=== PATIENT | female | born 1955 | race Caucasian/White ===

== ENCOUNTER → 2017-09-17 08:57 | Outpatient (CLI) | payer OTHER, MEDICAID, SELFPAY ==
--- NOTE | 2017-09-18 11:53 | PFT_ITS ---
INTRODUCTION: The patient is a 62-year-old female currently under the care of Dr. Bal that presents for pulmonary function testing secondary to a diagnosis of high risk medication use. Respiratory therapy reports that the patient was unable to complete plethysmography as the patient's wheelchair could not fit into the body box. Therefore, nitrogen washout was performed. INTERPRETATION: Forced expiration spirometry demonstrates no evidence of a large airways obstructive ventilatory defect. There was a near significant response to aerosolized bronchodilators. Spirograms are of fair quality and plateau normally. Lung volumes were measured by determining the functional residual capacity in determining the lung divisions by a vital capacity maneuver ( Nitrogen Washout). It should be noted that lung volumes may be underestimated by this technique in the setting of an obstructive ventilatory defect. TLC was decreased to 2.12 L, 48% of predicted, indicative of a severe restrictive ventilatory defect. The remainder of the lung volumes are symmetrically reduced. Diffusing capacity by single breath CO is severely reduced at 20% of predicted. When compared to previous pulmonary function studies dated November 2014, there have been symmetric reductions in the patient's FEV1 and FVC. TLC and DLCO have both significantly decreased. IMPRESSION: These pulmonary function studies demonstrate the presence of a severe restrictive ventilatory defect with a symmetric reduction in diffusing capacity. There have been significant changes in the patient's PFTs since they were last completed in November 2014. Would recommend obtaining dedicated chest imaging to evaluate for the presence of an interstitial lung disease.
== END ==
PROVIDERS: Family Provider Family Medicine; PCP Family Medicine; Visit Provider Internal Medicine Cardiovascular Disease
DX: Z79.899 Other long term (current) drug therapy (principal)
CPT/HCPCS: 94060; 94726; 94727; 94729

== ENCOUNTER 2018-08-02 16:47 | Inpatient (IN) | payer MEDICARE, MEDICAID, SELFPAY ==
[2018-03-09 14:02] VITALS: BMI 58.3
[2018-08-02] VITALS (10 sets, daily range): BP systolic 80–119; BP diastolic 51–87; PULSE 47–114; RESP 16–27; TEMP 36.2–36.9; O2SAT 94–98; BMI 62.6; BMI 61.4; BMI 61.5
--- NOTE | 2018-08-02 16:52 | ED.DCSUM_ITS ---
- ER Visit Summary Date of Service: 08/02/18 Chief Complaint: Bilateral hip wound History of Present Illness: The patient is a 63 F with history of morbid obesity, end-stage renal disease on dialysis, atrial fibrillation, and coronary vascular disease presents to the emergency department with bilateral hip wounds. The patient is wheelchair-bound. She states over the past 2-3 weeks, she is had some increasing skin breakdown in both hips. She states over the past few days, her pain is gotten much worse on especially on the left. She denies any fevers or chills. The patient does have a history of prior significant wound infection that has required debridement. They have tried some local skin latrell ures, but the ones worsened. She denies any trauma. She denies any falls. Physical Examination: Vital signs reviewed General: Well-nourished, well-developed Head: Normocephalic, atraumatic Eyes: Pupils equal and reactive, extraocular muscles intact Neck, supple, no lymphadenopathy Heart: Regular rate and rhythm Respiratory: No distress, clear bilaterally Abdomen: Soft, nontender, nondistended, no peritoneal signs Back: Nontender Extremities: Decubitus ulcerations over bilateral hips. There is skin breakdown, erythema, and cellulitis bilaterally, left greater than right. Skin: Normal color no rash Neuro: Alert and oriented, no focal or lateralizing deficits Test Results: [] Emergency Department Course and Treatment: The patient does have cellulitis bilaterally left greater than right. Screening labs are obtained. She has no evidence of sepsis. The patient does have chronic kidney disease and is on dialysis. My concern is that being wheelchair-bound and with her morbid obesity, her wounds are only going to worsen. The patient was started on broad- spectrum antibiotics. She was discussed with the hospitalist and will be admitted for monitoring of her cellulitis and local wound care. Treatment Plan: [] Disposition: Admission Impression: 1. Bilateral lower extremity cellulitis This note was generated with [employer] dictation software. It may contain incorrect words, spelling, and punctuation that were not noted in review of the chart prior to signing ED Disposition - Plan for ED Patient: Chief Complaint: Wound
[2018-08-02] MEDS: Morphine 2 MG/ML Syringe IV (17:21)
[2018-08-02 17:22] LABS: Basophil# 0.01 X10^3/uL; Basophil% 0.1 % (0-1); Eosinophils% 1.2 % (0-5); Hematocrit 37.2 % (37-47); Hemoglobin 10.9 g/dl (12.0-15.0); Lymphocyte % 12.4 % (19-41); Mean Corp Hgb Conc 29.3 g/gl (32-36); Mean Corpuscular Hgb 29.6 pg (27.0-32.0); Mean Corpuscular Volume 101.1 fL (81-99); Mean Platelet Vol. 9.6 fl (6.2-12.0); Monocyte# 0.95 X10^3/uL; Monocyte% 11.8 % (0-10); Neutrophil # 5.99 X10^3/uL (2.7-7.7); Neutrophil % 74.1 % (47-70); Platelet Count 199 K/mm3 (150-450); RBC Distribution Width CV 15.6 % (11.6-14.6); RBC Distribution Width SD 57.7 fl (35.1-43.9); Red Blood Count 3.68 M/mm3 (4.2-5.4); White Blood Count 8.1 K/mm3 (4.4-11.0)
[2018-08-02 17:31] LABS: POSITIVE COUNT NO; POSITIVE DIFFERENTIAL NO; POSITIVE MORPHOLOGY NO
[2018-08-02 17:37] LABS: ALB/GLOB Ratio 0.6 RATIO (0.9-2.4); AST(SGOT) 14 U/L (15-37); Alanine Aminotransfer ALT/SGPT 16 U/L (13-56); Albumin, Serum 2.6 g/dL (3.2-5.0); Alkaline Phosphatase 133 U/L (45-117); Anion Gap 13 (5-15); BUN 32 mg/dL (7-18); BUN/Creat Ratio 9.6 RATIO (10-20); Calcium,Total 10.2 mg/dL (8.5-10.1); Chloride 91 mmol/L (98-107); Creatinine, Serum 3.34 mg/dL (0.55-1.02); EST Glomerular Filtration Rate 15 mL/min (>60); Est Glom Filt Rate - Afr Amer 18 mL/min (>60); Estimated Creatinine Clearance 13.28 ml/min; Globulin 4.4 g/dL (2.2-4.2); Glucose 125 mg/dL (74-106); Potassium 3.6 mmol/L (3.5-5.1); Sodium Level 136 mmol/L (136-145)
[2018-08-02 17:38] LABS: International Normalized Ratio 1.2; Prothrombin Time (Protime)PT. 15.3 SECONDS (11.7-14.9)
[2018-08-02 17:42] LABS: Lactic Acid 1.5 mmol/L (0.4-2.0)
--- NOTE | 2018-08-02 18:18 | PCM.HP.STD ---
Problem List (1) Cellulitis of left hip Status: Acute (2) Morbid obesity Status: Chronic (3) Chronic obstructive pulmonary disease (COPD) Status: Chronic Qualifiers: Emphysema type: unspecified (4) GRAEME (obstructive sleep apnea) Status: Chronic (5) Chronic anemia Status: Chronic (6) Diabetes mellitus, type II Status: Chronic Qualifiers: Diabetes mellitus intermodal customer service insulin use: with intermodal customer service use Diabetes mellitus complication status: with unspecified complications Qualified Code(s): E11.8 - Type 2 diabetes mellitus with unspecified complications; Z79.4 - termite treater (current) use of insulin (7) Paroxysmal atrial fibrillation Status: Chronic (8) Cardiac pacemaker in situ Status: Chronic (9) Hypertension Status: Chronic Qualifiers: Hypertension type: essential hypertension Qualified Code(s): I10 - Essential (primary) hypertension (10) Tachycardia-bradycardia syndrome Status: Chronic (11) History of depression Status: Chronic (12) HLD (hyperlipidemia) Status: Chronic Qualifiers: Hyperlipidemia type: unspecified Qualified Code(s): E78.5 - Hyperlipidemia, unspecified (13) Pulmonary HTN Status: Chronic (14) ESRD (end stage renal disease) on dialysis Status: Chronic History of Present Illness Date of Admission: 08/02/18 Chief Complaint: L hip skin breakdown, redness, pain. The patient is a 63 y/o F w/ PMHx: Morbid Obesity, AOCD, ESRD on HD (HD M/W/F, last Thursday) following w/ Dr. Limon, Chronic wheelchair and bedbound, CAD, Chronic AF, HTN, HLD, Diabetes mellitus type II, GRAEME non-compliant with CPAP/BIPAP, Chronic COPD, Chronic Pain Syndrome who presents to the [facility] ED on 08/02/18 with history of progressively worsening skin breakdown to bilateral hips over the last 2-3 weeks, recently onset left side redness, erythema, edema, and pain over the last several days with subjective fever. She denies any specific changes and notes that she has been using the same wheelchair and denies any increased weight gain or body habitus changes. In the ED workup includes T 98.5, heart rate 94, BP 94/81 although this is on her upper extremity and suspect poor quality, respiratory rate 16, 97% on room air, CBC with WBC 8.1, hgb 10.9, platelet 199, INR 1.2, CMP with BUN/creatinine 32/3.34, glucose 125, lactic acid 1.5. In the ED patient administered morphine, fentanyl, Rocephin, vancomycin. Past Medical History Past Medical History (Chronic Problems): Chronic Problems (Last Reviewed 09/09/17 @ 15:25 by Padmini Micthell) Morbid obesity (Chronic) Chronic obstructive pulmonary disease (COPD) (Chronic) GRAEME (obstructive sleep apnea) (Chronic) Chronic anemia (Chronic) Diabetes mellitus, type II (Chronic) Paroxysmal atrial fibrillation (Chronic) Cardiac pacemaker in situ (Chronic ~02/23/14) Shortness of breath (Chronic) Hypertension (Chronic) Edema (Chronic) Carotid bruit (Chronic) Tachycardia-bradycardia syndrome (Chronic) History of depression (Chronic) HLD (hyperlipidemia) (Chronic) Biatrial enlargement (Chronic) Pulmonary HTN (Chronic) ESRD (end stage renal disease) on dialysis (Chronic) Contusion of right lower leg (Chronic) Resulting in a nonhealing wound Right lower leg eschar (Chronic) Decubitus ulcer of ankle, stage 2 (Chronic) Hyperkalemia (Chronic) Medical History: Medical History (Last Reviewed 09/09/17 @ 15:25 by Padmini Mitchell) Cardiac pacemaker in situ (Chronic) Onset Date: ~02/23/14 Z95.0 Shortness of breath (Chronic) R06.02 Hypertension (Chronic) I10 Edema (Chronic) R60.9 Carotid bruit (Chronic) R09.89 Tachycardia-bradycardia syndrome (Chronic) I49.5 History of depression (Chronic) Z86.59 HLD (hyperlipidemia) (Chronic) E78.5 Biatrial enlargement (Chronic) I51.7 Pulmonary HTN (Chronic) I27.2 ESRD (end stage renal disease) on dialysis (Chronic) N18.6, Z99.2 Contusion of right lower leg (Chronic) S80.11XA Resulting in a nonhealing wound Fall (on) (from) other stairs and steps, initial encounter (Acute) W10.8XXA Right lower leg eschar (Chronic) Clostridium difficile enterocolitis (Acute) A04.7 Recent, still on oral Vancocin Decubitus ulcer of ankle, stage 2 (Chronic) L89.502 C. difficile colitis (Acute) infected ischial tuberosity ulcer (Acute) infected ischial tuberosity ulcer (Acute) C. difficile colitis (Acute) Hyperkalemia (Chronic) E87.5 Asthma J45.909 CKD (chronic kidney disease) N18.9 COPD (chronic obstructive pulmonary disease) J44.9 Family history of hypertension Z82.49 Family history of sudden cardiac Z82.41 Paroxysmal atrial fibrillation I48.0 Respiratory failure, chronic J96.10 Type 2 diabetes mellitus E11.9 GRAEME (obstructive sleep apnea) G47.33 Acute on chronic respiratory failure with hypoxia and hypercapnia (Inactive) J96.21, J96.22 Benign essential hypertension (Inactive) I10 COPD (chronic obstructive pulmonary disease) (Inactive) J44.9 FH: sudden cardiac (SCD) (Inactive) Z82.41 Family history of hypertension (Inactive) Z82.49 History of chronic respiratory failure (Inactive) Z87.09 On 3 L nasal O2 group home use of drug (Inactive) Z79.899 Obstructive sleep apnea (Inactive) G47.33 PAF (paroxysmal atrial fibrillation) (Inactive) I48.0 with RVR Pacemaker (Inactive) Z95.0 DCCV 04/2015 Postoperative hypotension (Inactive) I95.89 Super obesity (Inactive) E66.9 Type II diabetes mellitus (Inactive) E11.9 Allergies rosuvastatin calcium [From Crestor] Allergy (Verified 08/02/18 16:51) Unknown Patient stated that she does not remember, it has been so long ago. Penicillins Adverse Reaction (Verified 08/02/18 16:51) Unknown GETS YEAST INFECTION prednisone Adverse Reaction (Verified 08/02/18 16:51) Other SENDS BLOOD SUGARS HIGH simvastatin Adverse Reaction (Verified 08/02/18 16:51) Unknown FEELS FUNNY Home Medications: Ambulatory Orders Medication Instructions Recorded Acetaminophen 650 mg RC Q4H PRN 02/14/17 Acetaminophen [Tylenol] 650 mg PO Q6H PRN 02/14/17 Albuterol Aerosols [Ventolin 2.5 mg INHALATION Q4H PRN PRN 02/14/17 Aerosols] Amiodarone HCl [Cordarone] 200 mg PO DAILY 02/14/17 Aspirin [Aspirin, Baby] 81 mg PO DAILY@0800 02/14/17 Benzonatate [Tessalon Perle] 100 mg PO PRN PRN 02/14/17 Bisacodyl [Dulcolax] 10 mg RECTAL PRN PRN 02/14/17 Calcium Acetate 667 mg PO TID 02/14/17 Dextrose [Glucose Gel] 38 gm PO PRN PRN 02/14/17 Ergocalciferol [Vitamin D] 50,000 unit PO Q7D 02/14/17 Glucagon,Human Recombinant 1 mg IJ PRN PRN 02/14/17 [Glucagon Emergency Kit] Guaifenesin [Robitussin] 10 ml PO Q4H PRN PRN 02/14/17 Insulin Detemir [Levemir (BKC)] 12 units SC QHS 02/14/17 Insulin Lispro [Humalog] 4 unit SQ TIDCM 02/14/17 Magnesium Hydroxide [Milk Of 30 ml PO DAILY PRN PRN 02/14/17 Magnesia] Meloxicam [Mobic] 7.5 mg PO DAILY 02/14/17 Metoprolol Tartrate [Lopressor 12.5 mg PO BID 02/14/17 (Beta Ariadna)] Montelukast [Singulair] 10 mg PO QHS 02/14/17 Na Phos,M-B/Na Phos,Di-Ba [Fleet 1 bottle RECTAL PRN PRN 02/14/17 Enema] Nystatin Powder [Mycostatin Powder] 1 applic TOPICAL DAILY 02/14/17 Pramipexole Di-HCl [Mirapex] 0.5 mg PO QHS 02/14/17 Sertraline HCl [Zoloft] 50 mg PO DAILY 02/14/17 midodrine 5 mg tablet 5 mg PO TID tab 09/09/17 omeprazole 20 mg tablet,delayed 20 mg PO QDAY tab 09/09/17 release Fluticasone 110 Mcg [Flovent (SP)] 1 puff INHALATION BID 08/02/18 Guaifenesin [Guaifenesin ER] 1,200 mg PO BID PRN PRN 08/02/18 Guaifenesin/Codeine [Robitussin AC] 10 ml PO Q6H PRN PRN 08/02/18 Insulin Lispro [Humalog] See Protocol SQ ACHS 08/02/18 Lactobacillus Rhamnosus GG 1 mg PO DAILY 08/02/18 [Culturelle] Levothyroxine [Synthroid] 25 mcg PO DAILY 08/02/18 Mag Hydrox/Aluminum Hyd/Simeth 30 ml PO Q4H PRN PRN 08/02/18 [Antacid Suspension] Nystatin [Mycostatin] 1 applic TOPICAL BID 08/02/18 Polyethylene Glycol 3350 [Miralax] 17 gm PO QHS 08/02/18 Pramipexole Di-HCl [Mirapex] 1 mg PO QHS 08/02/18 Silver Sulfadiazine 1% Crm 1 applic TOPICAL PRN PRN 08/02/18 [Silvadene (BKC)] traMADol [Ultram (G)] 50 mg PO Q8H PRN PRN 08/02/18 traMADol [Ultram (G)] 50 mg PO QHS PRN PRN 08/02/18 Surgical History: Surgical History (Last Reviewed 09/09/17 @ 15:25 by Padmini Mitchell) H/O skin graft (Acute) Z98.890 07/[address] Archie Fung to the nonhealing wound of the right lower extremity Surgical History: cataract, cholecystectomy, tonsillectomy, - - Placement of fistula and left upper arm placement of pacemaker, carpal tunnel surgery Psychiatric History: Anxiety, Depression HUMAN RESOURCES ASSISTANT MANAGER History: No pertinent HUMAN RESOURCES ASSISTANT MANAGER history Lives: Care Home Smoking Status: Former smoker Tobacco Use: Non-smoker Alcohol: None Drugs: None - *Family History Maternal Family History: Family History (Last Reviewed 09/09/17 @ 15:25 by Padmini Mitchell) Mother Diabetes Hypertension Grandmother Myocardial infarction Grandfather Hypertension Father Hypertension History Items: Diabetes, Hypertension Paternal Family History: Family History (Last Reviewed 09/09/17 @ 15:25 by Padmini Mitchell) Mother Diabetes Hypertension Grandmother Myocardial infarction Grandfather Hypertension Father Hypertension History Items: Hypertension Sibling Family History: Family History (Last Reviewed 09/09/17 @ 15:25 by Padmini Mitchell) Mother Diabetes Hypertension Grandmother Myocardial infarction Grandfather Hypertension Father Hypertension History Items: No pertinent history Review of Systems Constitutional: Reports: Fever, Malaise, Weakness, Fatigue. Denies: Chills, Weight Change HEENT: Denies: Head Aches, Sinus Congestion, Sinus Drainage Cardiovascular: Reports: Edema. Denies: Chest Pain, Palpitations Respiratory: Denies: Cough, Shortness of breath at rest, Sputum production Gastrointestinal: Denies: Abdominal Pain, Nausea, Vomiting Genitourinary: Denies: Dysuria Musculoskeletal: Reports: Back Pain, Joint Pain, Leg Pain. Denies: Joint Tenderness Skin: Reports: Skin Changes, Wounds. Denies: Rash Neurological: Denies: Numbness, Tingling, Focal weakness Psychiatric: Reports: Anxiety, Depression. Denies: Homicidal Ideations, Suicidal Ideations Hematologic/ Lymphatic: Reports: Anemia. Denies: Easy Bruising, Easy Bleeding VTE Information - Inpt Only VTE Present on Admission: No VTE Mechan Device Prophylaxis: SCD's VTE Pharm Prophylaxis ordered?: Yes Patient Problems: Active and Suspected Problems (Last Reviewed 09/09/17 @ 15:25 by Padmini Mitchell) Cellulitis of left hip (Acute) Subjective: Seated upright in the ED bed, denies any current complaints, recent pain regimen with improvement of discomfort to the left hip. Objective: Physical Examination: General: awake, alert, oriented x 3 and cooperative, seated upright in bed in no apparent distress. Skin: normal color, turgor, no icterus, cyanosis except noted intertrigo in addition to mild erythema primarily to the left hip, very minimal to the right with stage I skin breakdown. HEENT: AT/NC, EOMI, PERRLA, mildly dry MM, no carotid bruits or JVD noted; however habitus makes examination difficult. Lungs: Diminished breath sounds bilaterally, greater bilateral bases, distant secondary to habitus, no rales, ronchi or wheezing. Heart: Irregular; no gallop, rub audible. Abdomen: soft, obese, NTTP, ND, normal BS, unable to discern HSM secondary to habitus. Extremities: no cyanosis, clubbing, BL LE chronic venous skin changes, edema. Neurological: patient awake, alert, oriented x 3; cognitive function intact; pupils equally reactive to light and accomodation; cranial nerves II-XII grossly normal, moving all 4 extremities although limited, wheelchair and bedbound chronically, strength severely globally decreased. Psychiatric: affect appears normal, no acute evidence of depressive or anxiety feelings. - Physical Exam Vital Signs Temp Pulse Resp BP Pulse Ox 98.2 F 103 H 18 81/56 L 98 08/02/18 17:24 08/02/18 17:24 08/02/18 17:24 08/02/18 17:24 08/02/18 17:24 Oxygen Delivery Method Room Air Weight: 342 lb 9.573 oz Body Mass Index (BMI) 62.6 Finger Stick Blood Glucose 206 Laboratory Tests Past 24 Hrs 08/02/18 08/02/18 08/02/18 17:00 17:00 17:00 WBC 8.1 RBC 3.68 L Hgb 10.9 L Hct 37.2 MCV 101.1 H MCH 29.6 MCHC 29.3 L RDW 15.6 H RDW Differential 57.7 H Plt Count 199 MPV 9.6 Immature Gran % (Auto) 0.400 Neut % (Auto) 74.1 H Lymph % (Auto) 12.4 L [place] % (Auto) 11.8 H Eos % (Auto) 1.2 Baso % (Auto) 0.1 Absolute Neuts (auto) 6.0 Absolute Lymphs (auto) 1.00 Total Counted Not Reportable PT 15.3 H INR 1.2 Sodium 136 Potassium 3.6 Chloride 91 L Carbon Dioxide 32.0 Anion Gap 13 BUN 32 H Creatinine 3.34 H Estim Creat Clear Calc 13.28 Est GFR (MDRD) Af Amer 18 L Est GFR (MDRD) Non-Af 15 L BUN/Creatinine Ratio 9.6 L Glucose 125 H Lactic Acid Calcium 10.2 H Total Bilirubin 0.40 AST 14 L ALT 16 Alkaline Phosphatase 133 H Total Protein 7.0 Albumin 2.6 L Globulin 4.4 H Albumin/Globulin Ratio 0.6 L 08/02/18 17:00 WBC RBC Hgb Hct MCV MCH MCHC RDW RDW Differential Plt Count MPV Immature Gran % (Auto) Neut % (Auto) Lymph % (Auto) [place] % (Auto) Eos % (Auto) Baso % (Auto) Absolute Neuts (auto) Absolute Lymphs (auto) Total Counted PT INR Sodium Potassium Chloride Carbon Dioxide Anion Gap BUN Creatinine Estim Creat Clear Calc Est GFR (MDRD) Af Amer Est GFR (MDRD) Non-Af BUN/Creatinine Ratio Glucose Lactic Acid 1.5 Calcium Total Bilirubin AST ALT Alkaline Phosphatase Total Protein Albumin Globulin Albumin/Globulin Ratio Assessment/Plan All Active Problems (Last Reviewed 09/09/17 @ 15:25 by Padmini Mitchell) Cellulitis of left hip (Acute) Fall (on) (from) other stairs and steps, initial encounter (Acute) Clostridium difficile enterocolitis (Acute) H/O skin graft (Acute) C. difficile colitis (Acute) infected ischial tuberosity ulcer (Acute) infected ischial tuberosity ulcer (Acute) C. difficile colitis (Acute) MRSA (methicillin resistant Staphylococcus aureus) infection (Resolved) Pseudomonas aeruginosa infection (Resolved) The patient is a 63 y/o F w/ PMHx: Morbid Obesity, AOCD, ESRD on HD (HD M/W/F, last Thursday) following w/ Dr. Limon, Chronic wheelchair and bedbound, CAD, Chronic AF, HTN, HLD, Diabetes mellitus type II, GRAEME non-compliant with CPAP/BIPAP, Chronic COPD, Chronic Pain Syndrome who presents to the [facility] ED on 08/02/18 with history of progressively worsening skin breakdown to bilateral hips over the last 2-3 weeks, recently onset left side redness, erythema, edema, and pain over the last several days with subjective fever. (1) BL Hip, L>R Cellulitis: Will admit to [facility], maintain on IV vanc given MRSA history noted, plan repeat CBC in AM, continue affected extremity elevation above heart when seated and in bed, monitor erythema outline with VS checks. Wound RN consultation, position changes, offloading. (2) Diabetes mellitus type II: Hold oral home regimen, continue home insulin regimen, ADA diet, accu checks w/ ISS. (3) End-stage renal disease: Patient with normal HD regimen Thursday, Thursday, Thursday although given holiday patient underwent Thursday regimen per her report, consult Dr. Limon. Continue Midrin regimen. (4) Chronic Atrial Fibrillation: Continue home aspirin, amiodarone, metoprolol regimen. Not anticoagulated, unclear reason, possibly fall risk. (5) Hypertension: Continue home regimen including metoprolol, PRN hydralazine. (6) Hyperlipidemia: Statin allergy noted. (7) CAD: Continue home asa, BB, not on statin w/ allergy noted. (8) Morbid Obesity: Weight loss and lifestyle changes encouraged, nutrition consulted. (9) GRAEME: Noncompliant with sleep apnea CPAP/BIPAP regimen. (10) Hypothyroidism: Continue home synthroid regimen. (11) Chronic COPD: ATC duonebs, PRN albuterol, HOB, IS parameters. (12) Intertrigo: Continue nystatin powder application. (13) GERD: PPI. (14) DVT prophylaxis: SCDs, heparin. (15) CODE status: Discussed CODE status at length including difference between FULL code, DNR-CCA and DNR-CC status. Following discussions about the differences in these status, requested DNR-CCA, no intubation status. DNR-CCA, no intubation form signed and placed on the chart. Advanced Care Planning Face to Face Time: 17 minutes. Code Visit Inpatient E&M: 54282 Init Hosp L3 Procedures: 42144 Advncd Care Plan 30 Min
[2018-08-02] MEDS: Ceftriaxone 1 GM/50 ML BAG IV (18:36)
[2018-08-02] MEDS: Vancomycin IV 1,000 MG/200 ML BAG 200 MG IV (19:35)
[2018-08-02] MEDS: fentaNYL 100 MCG/2 ML Ampul 50 MCG IV (19:42)
--- NOTE | 2018-08-02 21:16 | ED.RN ---
MONE RN PATROL JUDGE CALLED ABOUT PATIENT'S LOWER BP. PATIENT STATES IT IS ALWAYS RUNS LOWER. I PUT A SMALL BP CUFF ON HER RIGHT FOREARM, ( WE ARE UNABLE TO USE RIGHT UPPER ARM OR LEFT ARM D/T DIALYSIS FISTULA.) I WAS ABLE TO GET A BETTER READING OF 91/67 AND THEY WERE OK WITH THIS PRIOR TO SENDING HER TO THE FLOOR. PATIENT HAS HAD THESE LOWER BP'S SINCE SHE CAME HERE AND DOCTOR MADE AWARE.
[2018-08-02 22:23] LABS: Magnesium 2.4 mg/dL (1.6-2.6)
[2018-08-02 22:39] LABS: Hemoglobin A1c 7.1 % (4.2-6.3)
[2018-08-02] MEDS: Ipratropium/Albuterol Sulfate 3 ML AMPUL.NEB INHALATION (23:09)
[2018-08-02] MEDS: Heparin Injection (Vial) 5,000 UNIT/ML VIAL 5000 UNIT SC (23:20)
[2018-08-02] MEDS: Metoprolol Tartrate 25 MG Tablet 12.5 MG PO (23:21)
[2018-08-02] MEDS: Pramipexole Di-HCl 1 MG Tablet PO (23:21)
[2018-08-02] MEDS: Midodrine HCl 5 MG Tablet PO (23:21)
[2018-08-02] MEDS: Nystatin Powder 15gm Bottle 1 APPLIC TOPICAL (23:22)
[2018-08-02] MEDS: Montelukast 10 MG Tablet PO (23:26)
[2018-08-02] MEDS: Insulin Lispro 100 UNIT/ML INSULN.PEN SC (23:26)
[2018-08-02 23:45] LABS: Bedside Glucose 277 mg/dL (70-110)
[2018-08-02] MEDS: oxyCODONE 5 MG Tablet PO (23:48)
[2018-08-03] VITALS (13 sets, daily range): BP systolic 75–130; BP diastolic 52–90; PULSE 70–135; RESP 18–20; TEMP 36.6–37.5; O2SAT 95–99
--- NOTE | 2018-08-03 | PCM.RX.CS ---
Consult Pharmacy has been consulted to manage selected antiobiotic: Vancomycin Type of Consult: New start Suspected Infection: Skin/Soft tissue Prior Doses of Antibiotics Received/Current Regimen: Medications Discontinued Medications Vancomycin HCl (Vancomycin) 1,000 mg in 200 mls @ 200 mls/hr IV X1 ONE Stop: 08/02/18 19:59 Last Admin: 08/02/18 19:35 Dose: 200 mls/hr Labs: Sodium 136 mmol/L (136-145) 08/02/18 17:00 Potassium 3.6 mmol/L (3.5-5.1) 08/02/18 17:00 Chloride 91 mmol/L (98-107) L 08/02/18 17:00 Carbon Dioxide 32.0 mmol/L (21.0-32.0) 08/02/18 17:00 Anion Gap 13 (5-15) 08/02/18 17:00 BUN 32 mg/dL (7-18) H 08/02/18 17:00 Creatinine 3.34 mg/dL (0.55-1.02) H 08/02/18 17:00 Est GFR (MDRD) Af Amer 18 mL/min (>60) L 08/02/18 17:00 Est GFR (MDRD) Non-Af 15 mL/min (>60) L 08/02/18 17:00 BUN/Creatinine Ratio 9.6 RATIO (10-20) L 08/02/18 17:00 Glucose 125 mg/dL (74-106) H 08/02/18 17:00 Weight used for dosin.4 kg Estimated Creatinine Clearance: 13.3 Goal Trough: 10-15 mcg/mL Pharmacy Plan for Drug Dosing: Due to CrCl<20 a random vancomycin level will be drawn and further dosing calculated from the results. Pharmacy Service will continue to monitor and adjust dosing as required. Follow-Up Labs: Trough Vancomycin - random Labs to be done on [date and time ordered]: 08/04/18 @0600
[2018-08-03] MEDS: Levothyroxine 25 MCG TABLET PO (05:55)
[2018-08-03] MEDS: Heparin Injection (Vial) 5,000 UNIT/ML VIAL 5000 UNIT SC ×3 (05:57→21:10)
[2018-08-03] MEDS: Midodrine HCl 5 MG Tablet PO ×3 (05:57→21:12)
[2018-08-03] MEDS: Nystatin Powder 15gm Bottle 1 APPLIC TOPICAL ×3 (05:57→21:11)
[2018-08-03] MEDS: Ipratropium/Albuterol Sulfate 3 ML AMPUL.NEB INHALATION ×2 (07:05→12:58)
--- NOTE | 2018-08-03 08:02 | PCM.PROGNOTE ---
Patient Problems: Active and Suspected Problems (Last Reviewed 09/09/17 @ 15:25 by Padmini Mitchell) Cellulitis of left hip (Acute) Subjective: The patient is a 63-year-old female with a past medical history of super morbid obesity, COPD, obstructive sleep apnea, chronic anemia, diabetes mellitus type 2, PAF, pacemaker implantation, hypertension, tachybradycardia syndrome, depression, hyperlipidemia, pulmonary hypertension and end-stage renal disease on hemodialysis who presented to the emergency department at [facility] on 08/02/2018 complaining of worsening skin breakdown to the bilateral hips over the previous 2-3 weeks. She had a subjective fever and denied chills. She is chronically wheelchair and bedbound. Over the past 18 months she has gained 41 pounds. Vital signs at presentation to the emergency room were temp 98.2, heart rate 47, blood pressure 93/57, respiratory rate 16 and she was 97% saturated on room air. Significant lab included a white blood cell count of 8.1 with 74% neutrophils. Hemoglobin is 10.9 which is her baseline. Platelets are within normal limits. Electrolytes were within normal limits and the BUN was 32 with a creatinine of 3.34. Hemoglobin A1c is 7.1 and lactic acid was 1.5. Calcium was elevated at 10.2. She was administered morphine, fentanyl, Rocephin and vancomycin in the emergency department. On physical examination she had intertrigo, mild erythema primarily to the left hip and very minimal to the right with stage I decubitus ulcers. She was admitted and placed on IV vancomycin given history of MRSA in the past. The erythema was outlined. Antibiotics day #2-vancomycin All events of the past 24 hours have been reviewed. She has been afebrile since admission. Blood pressure has ranged from 80/62 130/54 currently....I think this is related to when she is getting narcotics She is 97% saturated on a 3 L nasal cannula currently. Cultures are pending. Objective: PHYSICAL EXAM: GENERAL: alert, oriented X 3, Cooperative, NAD ORAL: dry mucosa, no mucosal lesions NECK: trachea midline LUNGS: CTA, symmetric chest expansion, very diminished BS's throughout HEART: irregular, Normal S1 and S2, no rub, no gallop ABDOMEN: soft, NT, ND, BS present, no guarding with palpation, obese EXTREMITIES: edema, no cyanosis, no calf tenderness SKIN: she has stage 2 decubitus ulcers on both lateral hip/upper thigh areas. The Left is worse than the right. These have no odor and no purulent DC. they are reddened with no significant increased warmth to touch NEUROLOGIC: no focal neurologic deficits PSYCH: appropriate, normal affect, pleasant Knows she has sleep apnea. she follows with Dr. Morrow. she has not tried CPAP in several years...did not like the mask - Physical Exam Vital Signs Temp Pulse Resp BP Pulse Ox 97.8 F 70 20 H 130/54 H 97 08/03/18 05:50 08/03/18 07:05 08/03/18 07:05 08/03/18 05:50 08/03/18 05:50 Oxygen Flow Rate (L/min) 3 Oxygen Delivery Method Nasal Cannula Weight: 335 lb 15.752 oz Body Mass Index (BMI) 61.4 Finger Stick Blood Glucose 206 Intake and Output for Last 24 Hours 08/01/18 08/02/18 08/03/18 23:59 23:59 23:59 Intake Total 450 / 450 Balance 450 / 450 Laboratory Tests Past 24 Hrs 08/02/18 08/02/18 08/02/18 17:00 17:00 17:00 WBC 8.1 RBC 3.68 L Hgb 10.9 L Hct 37.2 MCV 101.1 H MCH 29.6 MCHC 29.3 L RDW 15.6 H RDW Differential 57.7 H Plt Count 199 MPV 9.6 Immature Gran % (Auto) 0.400 Neut % (Auto) 74.1 H Lymph % (Auto) 12.4 L [place] % (Auto) 11.8 H Eos % (Auto) 1.2 Baso % (Auto) 0.1 Absolute Neuts (auto) 6.0 Absolute Lymphs (auto) 1.00 Total Counted Not Reportable PT 15.3 H INR 1.2 Sodium 136 Potassium 3.6 Chloride 91 L Carbon Dioxide 32.0 Anion Gap 13 BUN 32 H Creatinine 3.34 H Estim Creat Clear Calc 13.28 Est GFR (MDRD) Af Amer 18 L Est GFR (MDRD) Non-Af 15 L BUN/Creatinine Ratio 9.6 L Glucose 125 H Hemoglobin A1c Lactic Acid Calcium 10.2 H Magnesium Total Bilirubin 0.40 AST 14 L ALT 16 Alkaline Phosphatase 133 H Total Protein 7.0 Albumin 2.6 L Globulin 4.4 H Albumin/Globulin Ratio 0.6 L 08/02/18 08/02/18 08/02/18 17:00 17:00 17:00 WBC RBC Hgb Hct MCV MCH MCHC RDW RDW Differential Plt Count MPV Immature Gran % (Auto) Neut % (Auto) Lymph % (Auto) [place] % (Auto) Eos % (Auto) Baso % (Auto) Absolute Neuts (auto) Absolute Lymphs (auto) Total Counted PT INR Sodium Potassium Chloride Carbon Dioxide Anion Gap BUN Creatinine Estim Creat Clear Calc Est GFR (MDRD) Af Amer Est GFR (MDRD) Non-Af BUN/Creatinine Ratio Glucose Hemoglobin A1c 7.1 H Lactic Acid 1.5 Calcium Magnesium 2.4 Total Bilirubin AST ALT Alkaline Phosphatase Total Protein Albumin Globulin Albumin/Globulin Ratio POC Glucose 08/02/18 23:19 POC Glucose 277 H Medical Necessity - Tobacco Use Smoking Status: Former smoker Tobacco Use: Non-smoker Assessment/Plan All Active Problems (Last Reviewed 09/09/17 @ 15:25 by Padmini Mitchell) Cellulitis of left hip (Acute) Fall (on) (from) other stairs and steps, initial encounter (Acute) Clostridium difficile enterocolitis (Acute) H/O skin graft (Acute) C. difficile colitis (Acute) infected ischial tuberosity ulcer (Acute) infected ischial tuberosity ulcer (Acute) C. difficile colitis (Acute) MRSA (methicillin resistant Staphylococcus aureus) infection (Resolved) Pseudomonas aeruginosa infection (Resolved) Impressions 1. Age 1 decubitus ulcers on both hips -due to pressure from a wheelchair that is too small for her girth. Doubt cellulitis. 2. Obstructive sleep apnea-becomes very somnolent with narcotics and these are going to be discontinued 3. Atrial fibrillation 4. Super morbid obesity 5. COPD 6. Obstructive sleep apnea-untreated 7. Chronic anemia of chronic renal failure 8. Diabetes mellitus type 2 9. End-stage renal disease on hemodialysis 10. Tachybradycardia syndrome 11. Depression 12. Hyperlipidemia 13. Excessive caloric intake-consume 600 randi a day in supplements to keep her protein up and discussed with dietary and they recommend a 1600-calorie diet daily......including any protein supplements Consult [facility] for dialysis tomorrow Check an ESR and CRP Adjust insulin as needed to keep the blood sugars under 200 Blood cultures are pending Continue vancomycin for now I recommended she reconsider BiPAP or CPAP at night We discussed weight loss Renal profile in the a.m. Code Visit Inpatient E&M: 82985 Subs Hosp L2
[2018-08-03 08:41] LABS: Bedside Glucose 219 mg/dL (70-110)
[2018-08-03] MEDS: Amiodarone 200 MG Tablet PO (09:49)
[2018-08-03] MEDS: Aspirin 81 MG TAB.CHEW PO (09:49)
[2018-08-03] MEDS: Insulin Lispro 100 UNIT/ML INSULN.PEN SC ×6 (09:49→18:10)
[2018-08-03] MEDS: Calcium Acetate 667 MG Capsule PO ×3 (09:49→18:10)
[2018-08-03] MEDS: Sertraline 50 MG Tablet PO (09:50)
[2018-08-03] MEDS: Pantoprazole Sodium 20 MG Tablet PO (09:50)
[2018-08-03] MEDS: Metoprolol Tartrate 25 MG Tablet 12.5 MG PO (09:51)
[2018-08-03 09:56] LABS: Absolute Lymphocyte Count 0.78 X10^3/ul (0.83-4.51); Absolute Neutrophil Count 6.9 X10^3/uL (2.0-7.7); Basophil# 0.01 X10^3/uL; Basophil% 0.1 % (0-1); Eosinophil# 0.03 X10^3/uL; Eosinophils% 0.4 % (0-5); Hematocrit 34.4 % (37-47); Hemoglobin 10.4 g/dl (12.0-15.0); Lymphocyte # 0.78 X10^3/ul (4.0); Lymphocyte % 9.2 % (19-41); Mean Corp Hgb Conc 30.2 g/gl (32-36); Mean Corpuscular Hgb 30.8 pg (27.0-32.0); Mean Corpuscular Volume 101.8 fL (81-99); Mean Platelet Vol. 9.9 fl (6.2-12.0); Monocyte# 0.75 X10^3/uL; Monocyte% 8.9 % (0-10); Neutrophil # 6.85 X10^3/uL (2.7-7.7); Neutrophil % 81.2 % (47-70); POSITIVE COUNT NO; POSITIVE DIFFERENTIAL NO; POSITIVE MORPHOLOGY NO; Platelet Count 181 K/mm3 (150-450); RBC Distribution Width CV 15.3 % (11.6-14.6); RBC Distribution Width SD 55.8 fl (35.1-43.9); Red Blood Count 3.38 M/mm3 (4.2-5.4); White Blood Count 8.4 K/mm3 (4.4-11.0)
[2018-08-03 10:01] LABS: Erythrocyte Sedimentation Rate > 130 mm/hr (0-30)
[2018-08-03 10:19] LABS: Anion Gap 11 (5-15); BUN 37 mg/dL (7-18); Calcium,Total 9.7 mg/dL (8.5-10.1); Chloride 92 mmol/L (98-107); Creatinine, Serum 4.13 mg/dL (0.55-1.02); EST Glomerular Filtration Rate 12 mL/min (>60); Est Glom Filt Rate - Afr Amer 14 mL/min (>60); Estimated Creatinine Clearance 10.74 ml/min; Glucose 219 mg/dL (74-106); Potassium 4.2 mmol/L (3.5-5.1); Sodium Level 133 mmol/L (136-145)
[2018-08-03 12:07] LABS: Bedside Glucose 199 mg/dL (70-110)
[2018-08-03] MEDS: oxyCODONE 5 MG Tablet PO (12:44)
[2018-08-03] MEDS: Glucerna Shake 120 ML LIQUID PO ×3 (14:39→21:14)
[2018-08-03 16:02] LABS: Bedside Glucose 168 mg/dL (70-110)
[2018-08-03 17:12] LABS: Bedside Glucose 173 mg/dL (70-110)
--- NOTE | 2018-08-03 17:52 | EKG12_ITS ---
Test Reason : ARRYTHMIA Blood Pressure : / mmHG Vent. Rate : 105 BPM Atrial Rate : 208 BPM P-R Int : 000 ms QRS Dur : 098 ms QT Int : 348 ms P-R-T Axes : 000 068 180 degrees QTc Int : 459 ms Atrial fibrillation with premature ventricular or aberrantly conducted complexes Low voltage QRS Septal infarct (cited on or before 10-JAN-2017) Abnormal ECG Confirmed by DOMINIC KU, DINA ([id number]), assignment editor NADINE SHAH ([id number]) on 08/16/2018 10:30:54 AM Referred By: Linda Morales Confirmed By:DINA ALFARO MD
[2018-08-03] MEDS: Metoprolol Tartrate 25 MG Tablet PO (18:38)
[2018-08-03] MEDS: Pramipexole Di-HCl 1 MG Tablet PO (21:11)
[2018-08-03] MEDS: Polyethylene Glycol 3350 17 GM PACKET PO (21:11)
[2018-08-03] MEDS: Montelukast 10 MG Tablet PO (21:12)
[2018-08-03 22:26] LABS: Bedside Glucose 109 mg/dL (70-110)
[2018-08-04] VITALS (18 sets, daily range): BP systolic 75–152; BP diastolic 32–115; PULSE 81–133; RESP 16–24; TEMP 36.9–37.1; O2SAT 95–100
[2018-08-04] MEDS: Acetaminophen 325 MG Tablet 650 MG PO (05:42)
[2018-08-04] MEDS: Heparin Injection (Vial) 5,000 UNIT/ML VIAL 5000 UNIT SC ×3 (05:43→21:37)
[2018-08-04] MEDS: Nystatin Powder 15gm Bottle 1 APPLIC TOPICAL ×3 (05:43→21:41)
[2018-08-04] MEDS: Levothyroxine 25 MCG TABLET PO (05:43)
[2018-08-04] MEDS: Midodrine HCl 5 MG Tablet PO ×3 (05:43→21:40)
[2018-08-04 05:59] LABS: Albumin, Serum 2.2 g/dL (3.2-5.0); BUN 43 mg/dL (7-18); Calcium,Total 9.9 mg/dL (8.5-10.1); Chloride 93 mmol/L (98-107); Creatinine, Serum 4.77 mg/dL (0.55-1.02); EST Glomerular Filtration Rate 10 mL/min (>60); Est Glom Filt Rate - Afr Amer 12 mL/min (>60); Glucose 114 mg/dL (74-106); Potassium 4.4 mmol/L (3.5-5.1); Sodium Level 134 mmol/L (136-145)
[2018-08-04 06:01] LABS: Vancomycin, Random Level 7.3 ug/mL (0.0-15.0)
[2018-08-04] MEDS: Calcium Acetate 667 MG Capsule PO ×3 (07:28→17:56)
[2018-08-04] MEDS: Insulin Lispro 100 UNIT/ML INSULN.PEN SC ×6 (07:30→21:38)
[2018-08-04 07:45] LABS: Bedside Glucose 133 mg/dL (70-110)
[2018-08-04] MEDS: Ipratropium/Albuterol Sulfate 3 ML AMPUL.NEB INHALATION ×3 (09:02→19:31)
[2018-08-04] MEDS: Metoprolol Tartrate 25 MG Tablet PO ×2 (09:36→21:39)
[2018-08-04] MEDS: Pantoprazole Sodium 20 MG Tablet PO (09:36)
[2018-08-04] MEDS: Sertraline 50 MG Tablet PO (09:36)
[2018-08-04] MEDS: Aspirin 81 MG TAB.CHEW PO (09:36)
[2018-08-04] MEDS: Glucerna Shake 120 ML LIQUID PO ×4 (09:39→21:37)
[2018-08-04] MEDS: Amiodarone 200 MG Tablet PO (09:39)
--- NOTE | 2018-08-04 10:08 | PCM.CONS.R ---
Problem List (1) ESRD (end stage renal disease) on dialysis Status: Chronic Consultation - Renal PCP/ Referring MD: Requesting physician: [] Primary care physician: Yusuf Fung III, - History of Present Illness History of Present Illness: The patient is a 63 year old F PMH of morbid obesity, COPD, ESRD on MWF schedule of HD, HTN, DM, GRAEME. pt presented with progressive skin breakdown over both hips for the last 23 weeks. The left side became more sore and erythematous. Pt was admitted for cellulitis treatment. Pt had her las HD session On Wednesday 08/01 due to holiday schedule ROS: 12 systems review is negative except for regular SOB and left hip pain] - Allergies Allergies: Allergies rosuvastatin calcium [From Crestor] Allergy (Verified 08/02/18 16:51) Unknown Patient stated that she does not remember, it has been so long ago. Penicillins Adverse Reaction (Verified 08/02/18 16:51) Unknown GETS YEAST INFECTION prednisone Adverse Reaction (Verified 08/02/18 16:51) Other SENDS BLOOD SUGARS HIGH simvastatin Adverse Reaction (Verified 08/02/18 16:51) Unknown FEELS FUNNY - Current Medications Current Medications: Current Medications Acetaminophen (Tylenol) 650 mg PO Q6H PRN PRN PRN Reason: PAIN Last Admin: 08/04/18 05:42 Dose: 650 mg Al Hydroxide/Mg Hydroxide (Mylanta Ii) 30 ml PO Q6H PRN PRN PRN Reason: Gastric burning Albuterol Sulfate (Ventolin Aerosols) 2.5 mg INHALATION Q2H PRN PRN PRN Reason: dyspnea, wheezing Albuterol/Ipratropium (Duoneb) 3 ml INHALATION Q6HWA.RT [facility] Last Admin: 08/04/18 09:02 Dose: 3 ml Amiodarone HCl (Cordarone) 200 mg PO DAILY [facility] Last Admin: 08/04/18 09:39 Dose: 200 mg Aspirin (Aspirin, Baby) 81 mg PO DAILY@0800 [facility] Last Admin: 08/04/18 09:36 Dose: 81 mg Bisacodyl (Dulcolax) 10 mg RECTAL DAILY PRN PRN PRN Reason: Constipation Calcium Acetate (Phoslo Gel Cap) 667 mg PO TIDCM [facility] Last Admin: 08/04/18 07:28 Dose: 667 mg Dextrose (D50w Syringe) 0 gm IV X1 PRN; Protocol PRN Reason: Hypoglycemia Ergocalciferol (Vitamin D) 50,000 unit PO Q7D [facility] Last Admin: 08/03/18 09:50 Dose: 50,000 unit Glucagon () 1 mg IM .X1 PRN PRN Reason: Hypoglycemia Glucose (Instant Glucose) 30 gm PO PRN PRN PRN Reason: HYPOGLYCEMIA Heparin Sodium (Porcine) (Heparin Na) 5,000 unit SC Q8 [facility] Last Admin: 08/04/18 05:43 Dose: 5,000 unit Hydralazine HCl (Apresoline Iv) 10 mg IV Q4H PRN PRN PRN Reason: SBP > 160 Vancomycin IV Pharmacy to Dose (1 ea/ Sodium Chloride) 500 mls @ 250 mls/hr IV PRN PRN; Protocol PRN Reason: Rx to Dose Insulin Glargine (Lantus (Bkc)) 12 units SC QHS [facility] Last Admin: 08/03/18 21:10 Dose: 12 unit Insulin Human Lispro (Humalog Kwikpen (Bkc)) 0 unit SC ACHS [facility]; Protocol Last Admin: 08/04/18 07:30 Dose: Not Given Insulin Human Lispro (Humalog Kwikpen (Bkc)) 4 unit SC TIDAC [facility] Last Admin: 08/04/18 07:30 Dose: 4 u Lactobacillus Acidophilus (Acidophilus) 1 tablet PO DAILY [facility] Last Admin: 08/04/18 09:36 Dose: 1 tablet Levothyroxine Sodium (Synthroid) 25 mcg PO DAILY@0600 [facility] Last Admin: 08/04/18 05:43 Dose: 25 mcg Magnesium Hydroxide (Milk Of Magnesia) 30 ml PO DAILY PRN PRN PRN Reason: Constipation Metoprolol Tartrate (Lopressor (Beta Ariadna)) 25 mg PO BID [facility] Last Admin: 08/04/18 09:36 Dose: 25 mg Midodrine (Proamatine) 5 mg PO TID [facility] Last Admin: 08/04/18 05:43 Dose: 5 mg Montelukast Sodium (Singulair) 10 mg PO QHS [facility] Last Admin: 08/03/18 21:12 Dose: 10 mg Nutritional Formula (Lactose Free) (Glucerna Shake) 120 ml PO 4X/DAY [facility] Last Admin: 08/04/18 09:39 Dose: 120 ml Nystatin (Mycostatin Powder) 1 applic TOPICAL TID [facility]; Protocol Last Admin: 08/04/18 05:43 Dose: 1 applicatio Ondansetron HCl (Zofran) 4 mg IV Q8H PRN PRN PRN Reason: NAUSEA Pantoprazole Sodium (Protonix) 20 mg PO DAILY [facility] Last Admin: 08/04/18 09:36 Dose: 20 mg Polyethylene Glycol (Miralax) 17 gm PO QHS [facility] Last Admin: 08/03/18 21:11 Dose: 17 gm Pramipexole Dihydrochloride (Mirapex) 1 mg PO QHS [facility] Last Admin: 08/03/18 21:11 Dose: 1 mg Promethazine HCl (Phenergan) 12.5 mg IV Q6H PRN PRN PRN Reason: NAUSEA/VOMITING Sertraline HCl (Zoloft) 50 mg PO DAILY [facility] Last Admin: 08/04/18 09:36 Dose: 50 mg Sodium Biphosphate/Sodium Phosphate (Fleet Enema) 1 bottle RECTAL DAILY PRN PRN PRN Reason: Constipation - Past Medical History Past Medical History (Chronic Problems): Chronic Problems (Last Reviewed 09/09/17 @ 15:25 by Padmini Mitchell) Morbid obesity (Chronic) Chronic obstructive pulmonary disease (COPD) (Chronic) GRAEME (obstructive sleep apnea) (Chronic) Chronic anemia (Chronic) Diabetes mellitus, type II (Chronic) Paroxysmal atrial fibrillation (Chronic) Cardiac pacemaker in situ (Chronic ~02/23/14) Shortness of breath (Chronic) Hypertension (Chronic) Edema (Chronic) Carotid bruit (Chronic) Tachycardia-bradycardia syndrome (Chronic) History of depression (Chronic) HLD (hyperlipidemia) (Chronic) Biatrial enlargement (Chronic) Pulmonary HTN (Chronic) ESRD (end stage renal disease) on dialysis (Chronic) Contusion of right lower leg (Chronic) Resulting in a nonhealing wound Right lower leg eschar (Chronic) Decubitus ulcer of ankle, stage 2 (Chronic) Hyperkalemia (Chronic) - Past Surgical History Surgical History: cataract, cholecystectomy, tonsillectomy, - - Placement of fistula and left upper arm placement of pacemaker, carpal tunnel surgery - Social History Smoking Status: Former smoker Alcohol: None Drugs: None - Family History Maternal Family History: Family History (Last Reviewed 09/09/17 @ 15:25 by Padmini Mitchell) Mother Diabetes Hypertension Grandmother Myocardial infarction Grandfather Hypertension Father Hypertension History Items: Diabetes, Hypertension Paternal Family History: Family History (Last Reviewed 09/09/17 @ 15:25 by Padmini Mitchell) Mother Diabetes Hypertension Grandmother Myocardial infarction Grandfather Hypertension Father Hypertension History Items: Hypertension Sibling Family History: Family History (Last Reviewed 09/09/17 @ 15:25 by Padmini Mitchell) Mother Diabetes Hypertension Grandmother Myocardial infarction Grandfather Hypertension Father Hypertension History Items: No pertinent history Patient Problems: Active and Suspected Problems (Last Reviewed 09/09/17 @ 15:25 by Padmini Mitchell) Cellulitis of left hip (Acute) - Physical Exam General: Alert, Oriented x3 HEENT: Atraumatic Oral: Moist Mucosa Neck: Supple, No JVD Lungs: Clear to auscultation Cardiovascular: Regular rate, Regular Rhythm, Normal S1, Normal S2 Abdomen: Bowel Sounds Present, Soft, Non Tender Extremities: Edema - +1 edema of LE Lymphatic: No Cervical, Supraclavicular, or Inguinal Adenopathy Neurological: Cranial nerves II-XII grossly intact, Neuro grossly intact Psych/Mental Status: Normal Affect Vital Signs Temp Pulse Resp BP Pulse Ox 98.8 F 97 24 H 93/63 95 08/04/18 03:24 08/04/18 09:36 08/04/18 09:03 08/04/18 03:24 08/04/18 09:03 Oxygen Flow Rate (L/min) 3 Oxygen Delivery Method Nasal Cannula Weight: 152.4 kg Body Mass Index (BMI) 61.4 Finger Stick Blood Glucose 206 Intake and Output for Last 24 Hours 08/02/18 08/03/18 08/04/18 23:59 23:59 23:59 Intake Total 1208 / 1208 120 / 120 Balance 1208 / 1208 120 / 120 Laboratory Tests Past 24 Hrs 08/03/18 08/04/18 08/04/18 09:35 04:52 04:52 Sodium 133 L 134 L Potassium 4.2 4.4 Chloride 92 L 93 L Carbon Dioxide 30.0 29.0 Anion Gap 11 BUN 37 H 43 H Creatinine 4.13 H 4.77 H Estim Creat Clear Calc 10.74 9.30 Est GFR (MDRD) Af Amer 14 L 12 L Est GFR (MDRD) Non-Af 12 L 10 L BUN/Creatinine Ratio 9.0 L 9.0 L Glucose 219 H 114 H Calcium 9.7 9.9 Phosphorus 3.0 C-React Prot Ext Range 135.00 H Albumin 2.2 L Random Vancomycin 7.3 POC Glucose 08/04/18 08/03/18 08/03/18 07:23 21:07 16:59 POC Glucose 133 H 109 173 H 08/03/18 08/03/18 15:58 11:39 POC Glucose 168 H 199 H Assessment/Plan All Active Problems (Last Reviewed 09/09/17 @ 15:25 by Padmini Mitchell) Cellulitis of left hip (Acute) Fall (on) (from) other stairs and steps, initial encounter (Acute) Clostridium difficile enterocolitis (Acute) H/O skin graft (Acute) C. difficile colitis (Acute) infected ischial tuberosity ulcer (Acute) infected ischial tuberosity ulcer (Acute) C. difficile colitis (Acute) MRSA (methicillin resistant Staphylococcus aureus) infection (Resolved) Pseudomonas aeruginosa infection (Resolved) 1- ESRD on MWF. Pt goes to [facility] HD center . Last HD session 08/02 Will arrange for HD session as per the chronic order today. Will contact HD center to obtain her chronic order 2- Chronic hypotension. Continue midodrine 3- BMD:Continue Ca acetate. 4- cellulitis. Abx as per the primary service Will continue to follow ULISSES LOVING MD
--- NOTE | 2018-08-04 10:14 | CON.PCM_ITS ---
Problem List (1) ESRD (end stage renal disease) on dialysis Status: Chronic Consultation - Renal PCP/ Referring MD: Requesting physician: [] Primary care physician: Yusuf Fung III, - History of Present Illness History of Present Illness: The patient is a 63 year old F PMH of morbid obesity, COPD, ESRD on MWF schedule of HD, HTN, DM, GRAEME. pt presented with progressive skin breakdown over both hips for the last 23 weeks. The left side became more sore and erythematous. Pt was admitted for cellulitis treatment. Pt had her las HD session On Wednesday 08/01 due to holiday schedule ROS: 12 systems review is negative except for regular SOB and left hip pain] - Allergies Allergies: Allergies rosuvastatin calcium [From Crestor] Allergy (Verified 08/02/18 16:51) Unknown Patient stated that she does not remember, it has been so long ago. Penicillins Adverse Reaction (Verified 08/02/18 16:51) Unknown GETS YEAST INFECTION prednisone Adverse Reaction (Verified 08/02/18 16:51) Other SENDS BLOOD SUGARS HIGH simvastatin Adverse Reaction (Verified 08/02/18 16:51) Unknown FEELS FUNNY - Current Medications Current Medications: Current Medications Acetaminophen (Tylenol) 650 mg PO Q6H PRN PRN PRN Reason: PAIN Last Admin: 08/04/18 05:42 Dose: 650 mg Al Hydroxide/Mg Hydroxide (Mylanta Ii) 30 ml PO Q6H PRN PRN PRN Reason: Gastric burning Albuterol Sulfate (Ventolin Aerosols) 2.5 mg INHALATION Q2H PRN PRN PRN Reason: dyspnea, wheezing Albuterol/Ipratropium (Duoneb) 3 ml INHALATION Q6HWA.RT [facility] Last Admin: 08/04/18 09:02 Dose: 3 ml Amiodarone HCl (Cordarone) 200 mg PO DAILY [facility] Last Admin: 08/04/18 09:39 Dose: 200 mg Aspirin (Aspirin, Baby) 81 mg PO DAILY@0800 [facility] Last Admin: 08/04/18 09:36 Dose: 81 mg Bisacodyl (Dulcolax) 10 mg RECTAL DAILY PRN PRN PRN Reason: Constipation Calcium Acetate (Phoslo Gel Cap) 667 mg PO TIDCM [facility] Last Admin: 08/04/18 07:28 Dose: 667 mg Dextrose (D50w Syringe) 0 gm IV X1 PRN; Protocol PRN Reason: Hypoglycemia Ergocalciferol (Vitamin D) 50,000 unit PO Q7D [facility] Last Admin: 08/03/18 09:50 Dose: 50,000 unit Glucagon () 1 mg IM .X1 PRN PRN Reason: Hypoglycemia Glucose (Instant Glucose) 30 gm PO PRN PRN PRN Reason: HYPOGLYCEMIA Heparin Sodium (Porcine) (Heparin Na) 5,000 unit SC Q8 [facility] Last Admin: 08/04/18 05:43 Dose: 5,000 unit Hydralazine HCl (Apresoline Iv) 10 mg IV Q4H PRN PRN PRN Reason: SBP > 160 Vancomycin IV Pharmacy to Dose (1 ea/ Sodium Chloride) 500 mls @ 250 mls/hr IV PRN PRN; Protocol PRN Reason: Rx to Dose Insulin Glargine (Lantus (Bkc)) 12 units SC QHS [facility] Last Admin: 08/03/18 21:10 Dose: 12 unit Insulin Human Lispro (Humalog Kwikpen (Bkc)) 0 unit SC ACHS [facility]; Protocol Last Admin: 08/04/18 07:30 Dose: Not Given Insulin Human Lispro (Humalog Kwikpen (Bkc)) 4 unit SC TIDAC [facility] Last Admin: 08/04/18 07:30 Dose: 4 u Lactobacillus Acidophilus (Acidophilus) 1 tablet PO DAILY [facility] Last Admin: 08/04/18 09:36 Dose: 1 tablet Levothyroxine Sodium (Synthroid) 25 mcg PO DAILY@0600 [facility] Last Admin: 08/04/18 05:43 Dose: 25 mcg Magnesium Hydroxide (Milk Of Magnesia) 30 ml PO DAILY PRN PRN PRN Reason: Constipation Metoprolol Tartrate (Lopressor (Beta Ariadna)) 25 mg PO BID [facility] Last Admin: 08/04/18 09:36 Dose: 25 mg Midodrine (Proamatine) 5 mg PO TID [facility] Last Admin: 08/04/18 05:43 Dose: 5 mg Montelukast Sodium (Singulair) 10 mg PO QHS [facility] Last Admin: 08/03/18 21:12 Dose: 10 mg Nutritional Formula (Lactose Free) (Glucerna Shake) 120 ml PO 4X/DAY [facility] Last Admin: 08/04/18 09:39 Dose: 120 ml Nystatin (Mycostatin Powder) 1 applic TOPICAL TID [facility]; Protocol Last Admin: 08/04/18 05:43 Dose: 1 applicatio Ondansetron HCl (Zofran) 4 mg IV Q8H PRN PRN PRN Reason: NAUSEA Pantoprazole Sodium (Protonix) 20 mg PO DAILY [facility] Last Admin: 08/04/18 09:36 Dose: 20 mg Polyethylene Glycol (Miralax) 17 gm PO QHS [facility] Last Admin: 08/03/18 21:11 Dose: 17 gm Pramipexole Dihydrochloride (Mirapex) 1 mg PO QHS [facility] Last Admin: 08/03/18 21:11 Dose: 1 mg Promethazine HCl (Phenergan) 12.5 mg IV Q6H PRN PRN PRN Reason: NAUSEA/VOMITING Sertraline HCl (Zoloft) 50 mg PO DAILY [facility] Last Admin: 08/04/18 09:36 Dose: 50 mg Sodium Biphosphate/Sodium Phosphate (Fleet Enema) 1 bottle RECTAL DAILY PRN PRN PRN Reason: Constipation - Past Medical History Past Medical History (Chronic Problems): Chronic Problems (Last Reviewed 09/09/17 @ 15:25 by Padmini Mitchell) Morbid obesity (Chronic) Chronic obstructive pulmonary disease (COPD) (Chronic) GRAEME (obstructive sleep apnea) (Chronic) Chronic anemia (Chronic) Diabetes mellitus, type II (Chronic) Paroxysmal atrial fibrillation (Chronic) Cardiac pacemaker in situ (Chronic ~02/23/14) Shortness of breath (Chronic) Hypertension (Chronic) Edema (Chronic) Carotid bruit (Chronic) Tachycardia-bradycardia syndrome (Chronic) History of depression (Chronic) HLD (hyperlipidemia) (Chronic) Biatrial enlargement (Chronic) Pulmonary HTN (Chronic) ESRD (end stage renal disease) on dialysis (Chronic) Contusion of right lower leg (Chronic) Resulting in a nonhealing wound Right lower leg eschar (Chronic) Decubitus ulcer of ankle, stage 2 (Chronic) Hyperkalemia (Chronic) - Past Surgical History Surgical History: cataract, cholecystectomy, tonsillectomy, - - Placement of fistula and left upper arm placement of pacemaker, carpal tunnel surgery - Social History Smoking Status: Former smoker Alcohol: None Drugs: None - Family History Maternal Family History: Family History (Last Reviewed 09/09/17 @ 15:25 by Padmini Mitchell) Mother Diabetes Hypertension Grandmother Myocardial infarction Grandfather Hypertension Father Hypertension History Items: Diabetes, Hypertension Paternal Family History: Family History (Last Reviewed 09/09/17 @ 15:25 by Padmini Mitchell) Mother Diabetes Hypertension Grandmother Myocardial infarction Grandfather Hypertension Father Hypertension History Items: Hypertension Sibling Family History: Family History (Last Reviewed 09/09/17 @ 15:25 by Padmini Mitchell) Mother Diabetes Hypertension Grandmother Myocardial infarction Grandfather Hypertension Father Hypertension History Items: No pertinent history Patient Problems: Active and Suspected Problems (Last Reviewed 09/09/17 @ 15:25 by Padmini Mitchell) Cellulitis of left hip (Acute) - Physical Exam General: Alert, Oriented x3 HEENT: Atraumatic Oral: Moist Mucosa Neck: Supple, No JVD Lungs: Clear to auscultation Cardiovascular: Regular rate, Regular Rhythm, Normal S1, Normal S2 Abdomen: Bowel Sounds Present, Soft, Non Tender Extremities: Edema - +1 edema of LE Lymphatic: No Cervical, Supraclavicular, or Inguinal Adenopathy Neurological: Cranial nerves II-XII grossly intact, Neuro grossly intact Psych/Mental Status: Normal Affect Vital Signs Temp Pulse Resp BP Pulse Ox 98.8 F 97 24 H 93/63 95 08/04/18 03:24 08/04/18 09:36 08/04/18 09:03 08/04/18 03:24 08/04/18 09:03 Oxygen Flow Rate (L/min) 3 Oxygen Delivery Method Nasal Cannula Weight: 152.4 kg Body Mass Index (BMI) 61.4 Finger Stick Blood Glucose 206 Intake and Output for Last 24 Hours 08/02/18 08/03/18 08/04/18 23:59 23:59 23:59 Intake Total 1208 / 1208 120 / 120 Balance 1208 / 1208 120 / 120 Laboratory Tests Past 24 Hrs 08/03/18 08/04/18 08/04/18 09:35 04:52 04:52 Sodium 133 L 134 L Potassium 4.2 4.4 Chloride 92 L 93 L Carbon Dioxide 30.0 29.0 Anion Gap 11 BUN 37 H 43 H Creatinine 4.13 H 4.77 H Estim Creat Clear Calc 10.74 9.30 Est GFR (MDRD) Af Amer 14 L 12 L Est GFR (MDRD) Non-Af 12 L 10 L BUN/Creatinine Ratio 9.0 L 9.0 L Glucose 219 H 114 H Calcium 9.7 9.9 Phosphorus 3.0 C-React Prot Ext Range 135.00 H Albumin 2.2 L Random Vancomycin 7.3 POC Glucose 08/04/18 08/03/18 08/03/18 07:23 21:07 16:59 POC Glucose 133 H 109 173 H 08/03/18 08/03/18 15:58 11:39 POC Glucose 168 H 199 H Assessment/Plan All Active Problems (Last Reviewed 09/09/17 @ 15:25 by Padmini Mitchell) Cellulitis of left hip (Acute) Fall (on) (from) other stairs and steps, initial encounter (Acute) Clostridium difficile enterocolitis (Acute) H/O skin graft (Acute) C. difficile colitis (Acute) infected ischial tuberosity ulcer (Acute) infected ischial tuberosity ulcer (Acute) C. difficile colitis (Acute) MRSA (methicillin resistant Staphylococcus aureus) infection (Resolved) Pseudomonas aeruginosa infection (Resolved) 1- ESRD on MWF. Pt goes to [facility] HD center . Last HD session 08/02 Will arrange for HD session as per the chronic order today. Will contact HD center to obtain her chronic order 2- Chronic hypotension. Continue midodrine 3- BMD:Continue Ca acetate. 4- cellulitis. Abx as per the primary service Will continue to follow ULISSES LOVING MD
[2018-08-04 12:06] LABS: Bedside Glucose 205 mg/dL (70-110)
--- NOTE | 2018-08-04 12:11 | PCM.RX.CS ---
Consult Pharmacy has been consulted to manage selected antiobiotic: Vancomycin Type of Consult: Follow-up Suspected Infection: Skin/Soft tissue Prior Doses of Antibiotics Received/Current Regimen: Patient received 1gm iv on 08.02.19 @1935 Labs: Sodium 134 mmol/L (136-145) L 08/04/18 04:52 Potassium 4.4 mmol/L (3.5-5.1) 08/04/18 04:52 Chloride 93 mmol/L (98-107) L 08/04/18 04:52 Carbon Dioxide 29.0 mmol/L (21.0-32.0) 08/04/18 04:52 Anion Gap 11 (5-15) 08/03/18 09:35 BUN 43 mg/dL (7-18) H 08/04/18 04:52 Creatinine 4.77 mg/dL (0.55-1.02) H 08/04/18 04:52 Est GFR (MDRD) Af Amer 12 mL/min (>60) L 08/04/18 04:52 Est GFR (MDRD) Non-Af 10 mL/min (>60) L 08/04/18 04:52 BUN/Creatinine Ratio 9.0 RATIO (10-20) L 08/04/18 04:52 Glucose 114 mg/dL (74-106) H 08/04/18 04:52 Random Vancomycin 7.3 ug/mL (0.0-15.0) 08/04/18 04:52 Weight used for dosin.4 kg Estimated Creatinine Clearance: ~9.3 ml/hr Goal Trough: 10-15 mcg/mL Pharmacy Plan for Drug Dosing: Vancomycin random level on 08.04.18 was 7.3 (goal range 10-15 mcg/ml). Cr noted as 4.77 with CrCl ~9.3. Will dose 1gm iv x 1 after dialysis on 08.04.18 and get repeat random level in AM on 08.06.18. Pharmacy Service will continue to monitor and adjust dosing as required. Follow-Up Labs: Trough Vancomycin - random level in AM 08.06.18 @0600
--- NOTE | 2018-08-04 12:28 | NURSING ---
wound photo: right hip
--- NOTE | 2018-08-04 12:29 | NURSING ---
wound photo: left posterior thigh
--- NOTE | 2018-08-04 12:29 | NURSING ---
wound photo: left hip
--- NOTE | 2018-08-04 12:30 | MDS.RN ---
wound photo: left buttock
--- NOTE | 2018-08-04 14:26 | CASEMGMT ---
Social Work Note Pt is listed as being from [facility]. BISHOP met with pt. Pt is alert and orientaed x3. SW introduced self and role at [facility]. 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 Per Physician, pt needs a bigger wheelchair and would benefit from low airloss mattress. BISHOP placed a call to Neha at [facility] and updated her on this. Per Neha she can order the DME. BISHOP faxed clinicals to [facility]. Green sheet on chart. Plan: [facility] once medically cleared Anahi Jensen BINDERY HELPER, TRUCK SWITCHER
[2018-08-04 15:21] LABS: Bedside Glucose 157 mg/dL (70-110)
[2018-08-04] MEDS: Vancomycin IV 1,000 MG/200 ML BAG 200 MG IV (16:15)
[2018-08-04 17:56] LABS: Bedside Glucose 233 mg/dL (70-110)
--- NOTE | 2018-08-04 20:01 | PCM.PROGNOTE ---
Patient Problems: Active and Suspected Problems (Last Reviewed 09/09/17 @ 15:25 by Padmini Mitchell) Cellulitis of left hip (Acute) Subjective: All events of the past 24 hours of been reviewed. Afebrile since admission. Blood pressures are very labile depending on where they are taken. Sometimes normal and sometimes low. She denies any lightheadedness, is alert and has good color in her face. I reviewed the photos of the wounds taken today and discussed the wounds with Marlene Ramsey We both feel that there is no evidence of cellulitis and the redness is due to stage 1 and 2 decubitus ulcers. I however can not explain the high ESR and CRP? She is much more alert today since the narcotics have been discontinued. She is agreeable to a trial of BIPAP tonight Objective: GENERAL: alert, oriented X 3, Cooperative, NAD ORAL: dry mucosa, no mucosal lesions NECK: trachea midline LUNGS: CTA, symmetric chest expansion, very diminished BS's throughout HEART: irregular, Normal S1 and S2, no rub, no gallop ABDOMEN: soft, NT, ND, BS present, no guarding with palpation, obese EXTREMITIES: edema, no cyanosis, no calf tenderness SKIN: she has stage 2 decubitus ulcers on both lateral hip/upper thigh areas. The Left is worse than the right. These have no odor and no purulent DC. they are reddened with no significant increased warmth to touch NEUROLOGIC: no focal neurologic deficits PSYCH: appropriate, normal affect, pleasant - Physical Exam Vital Signs Temp Pulse Resp BP Pulse Ox 98.5 F 113 H 18 123/85 H 100 08/04/18 16:40 08/04/18 18:00 08/04/18 16:40 08/04/18 16:40 08/04/18 16:40 Oxygen Flow Rate (L/min) 3 Oxygen Delivery Method Nasal Cannula Weight: 335 lb 15.752 oz Body Mass Index (BMI) 61.4 Finger Stick Blood Glucose 206 Intake and Output for Last 24 Hours 08/02/18 08/03/18 08/04/18 23:59 23:59 23:59 Intake Total 1208 / 1208 1600 / 1600 Output Total 2400 / 2400 Balance 1208 / 1208 -800 / -800 Laboratory Tests Past 24 Hrs 08/04/18 08/04/18 08/04/18 04:52 04:52 14:15 Sodium 134 L Potassium 4.4 Chloride 93 L Carbon Dioxide 29.0 BUN 43 H Creatinine 4.77 H Estim Creat Clear Calc 9.30 Est GFR (MDRD) Af Amer 12 L Est GFR (MDRD) Non-Af 10 L BUN/Creatinine Ratio 9.0 L Glucose 114 H Calcium 9.9 Phosphorus 3.0 Albumin 2.2 L Random Vancomycin 7.3 Hep Bs Antibody Pending POC Glucose 08/04/18 08/04/18 08/04/18 17:49 15:11 12:00 POC Glucose 233 H 157 H 205 H 08/04/18 08/03/18 07:23 21:07 POC Glucose 133 H 109 Medical Necessity - Tobacco Use Smoking Status: Former smoker Tobacco Use: Non-smoker Assessment/Plan All Active Problems (Last Reviewed 09/09/17 @ 15:25 by Padmini Mitchell) Cellulitis of left hip (Acute) Fall (on) (from) other stairs and steps, initial encounter (Acute) Clostridium difficile enterocolitis (Acute) H/O skin graft (Acute) C. difficile colitis (Acute) infected ischial tuberosity ulcer (Acute) infected ischial tuberosity ulcer (Acute) C. difficile colitis (Acute) MRSA (methicillin resistant Staphylococcus aureus) infection (Resolved) Pseudomonas aeruginosa infection (Resolved) Impressions 1. Stage 2 decubitus ulcers on both hips -due to pressure from a wheelchair that is too small for her girth. Doubt cellulitis. 2. Obstructive sleep apnea-becomes very somnolent with narcotics and these have been discontinued. Will try Toradol today. She is willing to try BIPAP tonight 3. Atrial fibrillation 4. Super morbid obesity 5. COPD 6. Obstructive sleep apnea-untreated 7. Chronic anemia of chronic renal failure 8. Diabetes mellitus type 2 9. End-stage renal disease on hemodialysis 10. Tachybradycardia syndrome 11. Depression 12. Hyperlipidemia 13. Excessive caloric intake-consume 600 randi a day in supplements to keep her protein up and discussed with dietary and they recommend a 1600-calorie diet daily......including any protein supplements 14. markedly increased ESR and CRP - no obvious infection? Check an RA and a LILLIANA Recheck the ESR and the CRP in the AM Continue wound care Will need a braiatric, low air loss bed at the [facility] and a bariatric WC ........advised her to not sit in the WC until decubs on the hips are healed Code Visit Inpatient E&M: 11777 Subs Hosp L2
[2018-08-04] MEDS: Menthol/Lanolin/Calamine/Znox 113 GM Tube 1 APPLIC TOPICAL (21:37)
[2018-08-04] MEDS: Polyethylene Glycol 3350 17 GM PACKET PO (21:39)
[2018-08-04] MEDS: Acetaminophen 500 MG Tablet 1000 MG PO (21:40)
[2018-08-04] MEDS: Pramipexole Di-HCl 1 MG Tablet PO (21:40)
[2018-08-04] MEDS: Montelukast 10 MG Tablet PO (21:41)
[2018-08-04 21:56] LABS: Bedside Glucose 178 mg/dL (70-110)
--- NOTE | 2018-08-04 22:15 | EKGRS_ITS ---
Test Reason : TACHYCARDIA Blood Pressure : / mmHG Vent. Rate : 124 BPM Atrial Rate : 070 BPM P-R Int : 000 ms QRS Dur : 092 ms QT Int : 356 ms P-R-T Axes : 000 090 128 degrees QTc Int : 511 ms Atrial fibrillation with premature ventricular or aberrantly conducted complexes Low voltage QRS Septal infarct , age undetermined ST & T wave abnormality, consider lateral ischemia or digitalis effect Abnormal ECG When compared with ECG of 03-AUG-2018 17:59, MANUAL COMPARISON REQUIRED, DATA IS UNCONFIRMED Confirmed by DOMINIC KU, DINA ([id number]), food expeditor NADINE SHAH ([id number]) on 08/16/2018 10:30:35 AM Referred By: Linda Morales Confirmed By:DINA ALFARO MD
--- NOTE | 2018-08-04 22:51 | PCM.PN.BLA ---
Progress Note Because of A. fib with RVR will transfer patient to progressive care unit and start her on amiodarone bolus and drip. Importantly patient has a history of A. fib and is on amiodarone p.o. consider cardiac consult if her A. fib persists. Patient was no started because her systolic blood pressure was 103.
[2018-08-05] VITALS (56 sets, daily range): BP systolic 52–100; BP diastolic 27–76; PULSE 87–122; RESP 12–98; TEMP 36.2–37.1; O2SAT 20–100
--- NOTE | 2018-08-05 00:15 | PCM.PN.BLA ---
Progress Note Patient was transferred from message to PCU because of A. fib with RVR. Amiodarone IV was ordered. But before amiodarone will be started patient's systolic blood pressure was 63. His heart rate was in the 120s. Would hold off on rhythm at this time. Patient reports chronic low blood pressure. And she is a dialysis patient. However because of severe hypotension we will give patient 500 MLS of IV normal saline bolus. Will discontinue amiodarone at this time.
[2018-08-05] MEDS: Midodrine HCl 5 MG Tablet 10 MG PO ×4 (02:30→22:18)
[2018-08-05] MEDS: Heparin Injection (Vial) 5,000 UNIT/ML VIAL 5000 UNIT SC ×3 (05:14→22:08)
[2018-08-05] MEDS: Nystatin Powder 15gm Bottle 1 APPLIC TOPICAL ×3 (05:14→22:17)
[2018-08-05] MEDS: Levothyroxine 25 MCG TABLET PO (05:15)
[2018-08-05] MEDS: Acetaminophen 500 MG Tablet 1000 MG PO ×3 (05:20→22:24)
--- NOTE | 2018-08-05 05:47 | CPS ---
pt refused bipap at this time.
[2018-08-05 07:06] LABS: Bedside Glucose 171 mg/dL (70-110)
[2018-08-05 07:07] LABS: Absolute Lymphocyte Count 1.08 X10^3/ul (0.83-4.51); Absolute Neutrophil Count 6.2 X10^3/uL (2.0-7.7); Basophil# 0.02 X10^3/uL; Basophil% 0.2 % (0-1); Eosinophil# 0.11 X10^3/uL; Eosinophils% 1.3 % (0-5); Hematocrit 32.4 % (37-47); Hemoglobin 9.7 g/dl (12.0-15.0); Lymphocyte # 1.08 X10^3/ul (4.0); Lymphocyte % 13.1 % (19-41); Mean Corp Hgb Conc 29.9 g/gl (32-36); Mean Corpuscular Hgb 29.8 pg (27.0-32.0); Mean Corpuscular Volume 99.7 fL (81-99); Mean Platelet Vol. 9.6 fl (6.2-12.0); Monocyte# 0.85 X10^3/uL; Monocyte% 10.3 % (0-10); Neutrophil # 6.18 X10^3/uL (2.7-7.7); Neutrophil % 74.7 % (47-70); Platelet Count 198 K/mm3 (150-450); RBC Distribution Width CV 15.8 % (11.6-14.6); RBC Distribution Width SD 57.9 fl (35.1-43.9); Red Blood Count 3.25 M/mm3 (4.2-5.4); White Blood Count 8.3 K/mm3 (4.4-11.0)
[2018-08-05 07:09] LABS: POSITIVE COUNT NO; POSITIVE DIFFERENTIAL NO; POSITIVE MORPHOLOGY NO
[2018-08-05 07:11] LABS: Erythrocyte Sedimentation Rate > 130 mm/hr (0-30)
[2018-08-05 07:13] LABS: Rheumatoid Factor < 10.0 IU/mL (<15)
[2018-08-05] MEDS: Ipratropium/Albuterol Sulfate 3 ML AMPUL.NEB INHALATION ×3 (07:16→19:17)
[2018-08-05] MEDS: Insulin Lispro 100 UNIT/ML INSULN.PEN SC ×6 (08:33→22:15)
[2018-08-05] MEDS: Calcium Acetate 667 MG Capsule PO ×3 (08:34→17:19)
[2018-08-05] MEDS: Aspirin 81 MG TAB.CHEW PO (08:34)
[2018-08-05] MEDS: Amiodarone 200 MG Tablet PO (08:35)
[2018-08-05] MEDS: Sertraline 50 MG Tablet PO (08:35)
[2018-08-05] MEDS: Menthol/Lanolin/Calamine/Znox 113 GM Tube 1 APPLIC TOPICAL ×2 (08:36→22:07)
[2018-08-05] MEDS: Pantoprazole Sodium 20 MG Tablet PO (08:37)
[2018-08-05] MEDS: Glucerna Shake 120 ML LIQUID PO ×4 (08:37→22:05)
[2018-08-05] MEDS: Metoprolol Tartrate 25 MG Tablet PO ×2 (10:31→22:16)
--- NOTE | 2018-08-05 10:51 | PN.RENAL_ITS ---
Patient Problems: Active and Suspected Problems (Last Reviewed 09/09/17 @ 15:25 by Padmini Mitchell) Cellulitis of left hip (Acute) Subjective: Patient had leg cramps during dialysis yesterday and the hemodialysis session was aborted early. She had 2.5 L ultrafiltration. Patient had A. fib with RVR this morning. Heart rate is better now. Blood pressure is better. No nausea no vomiting. She feels that she is fluid overloaded. No worsening of her respiratory status - Physical Exam General: Alert, Oriented x3 HEENT: Atraumatic Oral: Moist Mucosa Neck: Supple, No JVD Lungs: - - Decreased breath sounds bilaterally Cardiovascular: Irregular Rate, Tachycardic Abdomen: Bowel Sounds Present, Soft, Non Tender Extremities: Edema - +1 edema of lower extremity Skin: No rashes Musculoskeletal: No Tenderness to Palpation of Joints or Extremities Neurological: Cranial nerves II-XII grossly intact, Neuro grossly intact Psych/Mental Status: Normal Affect Vital Signs Temp Pulse Resp BP Pulse Ox 98.6 F 96 20 H 75/48 L 98 08/05/18 08:00 08/05/18 10:31 08/05/18 08:28 08/05/18 10:31 08/05/18 08:28 Oxygen Flow Rate (L/min) 3 Oxygen Delivery Method Nasal Cannula Weight: 152.4 kg Body Mass Index (BMI) 61.4 Finger Stick Blood Glucose 206 Intake and Output for Last 24 Hours 08/03/18 08/04/18 08/05/18 23:59 23:59 23:59 Intake Total 1208 / 1208 1600 / 1600 620 / 620 Output Total 2400 / 2400 Balance 1208 / 1208 -800 / -800 620 / 620 Microbiology Past 72 Hours 08/02/18 17:45 Blood Culture - Preliminary Blood Culture (Wb) - Right Hand No growth in 48 hours. 08/02/18 17:00 Blood Culture - Preliminary Blood Culture (Wb) - Anticubital Right No growth in 48 hours. Laboratory Tests Past 24 Hrs 08/04/18 08/05/18 08/05/18 14:15 05:40 05:40 WBC 8.3 RBC 3.25 L Hgb 9.7 L Hct 32.4 L MCV 99.7 H MCH 29.8 MCHC 29.9 L RDW 15.8 H RDW Differential 57.9 H Plt Count 198 MPV 9.6 Immature Gran % (Auto) 0.400 Neut % (Auto) 74.7 H Lymph % (Auto) 13.1 L Andrews % (Auto) 10.3 H Eos % (Auto) 1.3 Baso % (Auto) 0.2 Absolute Neuts (auto) 6.2 Absolute Lymphs (auto) 1.08 Total Counted Not Reportable ESR > 130 H Rheumatoid Factor < 10.0 LILLIANA Screen RACHNA-1 Antibody SS-A/Ro IgG Antibody SS-B/La IgG Antibody Sm (Perez) Antibody PHYSICIAN NEONATOLOGY Antibody Scl-70 Scleroderma Ab Double Strand DNA Ab Centromere B Antibody Hep Bs Antibody Pending 08/05/18 05:40 WBC RBC Hgb Hct MCV MCH MCHC RDW RDW Differential Plt Count MPV Immature Gran % (Auto) Neut % (Auto) Lymph % (Auto) Andrews % (Auto) Eos % (Auto) Baso % (Auto) Absolute Neuts (auto) Absolute Lymphs (auto) Total Counted ESR Rheumatoid Factor LILLIANA Screen Pending RACHNA-1 Antibody Pending SS-A/Ro IgG Antibody Pending SS-B/La IgG Antibody Pending Sm (Perez) Antibody Pending PHYSICIAN NEONATOLOGY Antibody Pending Scl-70 Scleroderma Ab Pending Double Strand DNA Ab Pending Centromere B Antibody Pending Hep Bs Antibody POC Glucose 08/05/18 08/04/18 08/04/18 06:59 21:36 17:49 POC Glucose 171 H 178 H 233 H 08/04/18 08/04/18 15:11 12:00 POC Glucose 157 H 205 H Medical Necessity - Tobacco Use Smoking Status: Former smoker Tobacco Use: Non-smoker Assessment/Plan All Active Problems (Last Reviewed 09/09/17 @ 15:25 by Padmini Mitchell) Cellulitis of left hip (Acute) Fall (on) (from) other stairs and steps, initial encounter (Acute) Clostridium difficile enterocolitis (Acute) H/O skin graft (Acute) C. difficile colitis (Acute) infected ischial tuberosity ulcer (Acute) infected ischial tuberosity ulcer (Acute) C. difficile colitis (Acute) MRSA (methicillin resistant Staphylococcus aureus) infection (Resolved) Pseudomonas aeruginosa infection (Resolved) 1- ESRD on MWF. Pt goes to [facility] . Last HD session August 04. Hemodialysis access is left upper extremity AV fistula. No need for hemodialysis today. Next hemodialysis session August 06 2- Chronic hypotension. Continue midodrine 3- BMD:Continue Ca acetate with meals 4-DU of both hips. 5-A. fib with RVR. Cardiology service to be consulted Will continue to follow ULISSES LOVING MD
[2018-08-05 12:20] LABS: Bedside Glucose 148 mg/dL (70-110)
[2018-08-05 16:15] LABS: Hep B Surface Antibodies Reactive (.)
--- NOTE | 2018-08-05 17:08 | PCM.PROGNOTE ---
Subjective: All events of the past 24 hours were reviewed. Patient went into atrial fibrillation last night but has a known history of PAF. She was transferred to PCU. Remains in AF with uncontrolled HR No CP and no SOB. She is tearful and telling me that her pain is 10/10 Objective: GENERAL: alert, oriented X 3, Cooperative, tearful and c/o 10/10 pain ORAL: moist mucosa, no mucosal lesions NECK: trachea midline LUNGS: CTA, symmetric chest expansion, very diminished BS's throughout HEART: irregular, Normal S1 and S2, no rub, no gallop ABDOMEN: soft, NT, ND, BS present, no guarding with palpation, obese EXTREMITIES: edema, no cyanosis, no calf tenderness SKIN: she has stage 2 decubitus ulcers on both lateral hip/upper thigh areas. The Left is worse than the right. These have no odor and no purulent DC. they are reddened with no significant increased warmth to touch NEUROLOGIC: no focal neurologic deficits PSYCH: appropriate, normal affect, pleasant - Physical Exam Vital Signs Temp Pulse Resp BP Pulse Ox 97.6 F L 109 H 24 H 81/69 L 98 08/05/18 15:00 08/05/18 17:00 08/05/18 16:00 08/05/18 17:00 08/05/18 15:00 Oxygen Flow Rate (L/min) 3 Oxygen Delivery Method Nasal Cannula Weight: 335 lb 15.752 oz Body Mass Index (BMI) 61.4 Finger Stick Blood Glucose 206 Intake and Output for Last 24 Hours 08/03/18 08/04/18 08/05/18 23:59 23:59 23:59 Intake Total 1208 / 1208 1600 / 1600 1020 / 1020 Output Total 2400 / 2400 Balance 1208 / 1208 -800 / -800 1020 / 1020 Microbiology Past 72 Hours 08/02/18 17:45 Blood Culture - Preliminary Blood Culture (Wb) - Right Hand No growth in 48 hours. 08/02/18 17:00 Blood Culture - Preliminary Blood Culture (Wb) - Anticubital Right No growth in 48 hours. Laboratory Tests Past 24 Hrs 08/04/18 08/05/18 08/05/18 14:15 05:40 05:40 WBC 8.3 RBC 3.25 L Hgb 9.7 L Hct 32.4 L MCV 99.7 H MCH 29.8 MCHC 29.9 L RDW 15.8 H RDW Differential 57.9 H Plt Count 198 MPV 9.6 Immature Gran % (Auto) 0.400 Neut % (Auto) 74.7 H Lymph % (Auto) 13.1 L Corson % (Auto) 10.3 H Eos % (Auto) 1.3 Baso % (Auto) 0.2 Absolute Neuts (auto) 6.2 Absolute Lymphs (auto) 1.08 Total Counted Not Reportable ESR > 130 H Rheumatoid Factor < 10.0 LILLIANA Screen RACHNA-1 Antibody SS-A/Ro IgG Antibody SS-B/La IgG Antibody Sm (Perez) Antibody CLINICAL ENGINEERING MANAGER Antibody Scl-70 Scleroderma Ab Double Strand DNA Ab Centromere B Antibody Hep Bs Antibody Reactive 08/05/18 05:40 WBC RBC Hgb Hct MCV MCH MCHC RDW RDW Differential Plt Count MPV Immature Gran % (Auto) Neut % (Auto) Lymph % (Auto) Corson % (Auto) Eos % (Auto) Baso % (Auto) Absolute Neuts (auto) Absolute Lymphs (auto) Total Counted ESR Rheumatoid Factor LILLIANA Screen Pending RACHNA-1 Antibody Pending SS-A/Ro IgG Antibody Pending SS-B/La IgG Antibody Pending Sm (Perez) Antibody Pending CLINICAL ENGINEERING MANAGER Antibody Pending Scl-70 Scleroderma Ab Pending Double Strand DNA Ab Pending Centromere B Antibody Pending Hep Bs Antibody POC Glucose 08/05/18 08/05/18 08/04/18 12:08 06:59 21:36 POC Glucose 148 H 171 H 178 H 08/04/18 17:49 POC Glucose 233 H Medical Necessity - Tobacco Use Smoking Status: Former smoker Tobacco Use: Non-smoker Assessment/Plan All Active Problems (Last Reviewed 09/09/17 @ 15:25 by Padmini Mitchell) Cellulitis of left hip (Ruled-out) Decubitus ulcer of left hip, stage 2 (Acute) Decubitus ulcer of right hip, stage 2 (Acute) ESR raised (Acute) Clostridium difficile enterocolitis (Acute) C. difficile colitis (Resolved) Hyperkalemia (Resolved) MRSA (methicillin resistant Staphylococcus aureus) infection (Resolved) Pseudomonas aeruginosa infection (Resolved) infected ischial tuberosity ulcer (Resolved) Impressions 1. Stage 2 decubitus ulcers on both hips -due to pressure from a wheelchair that is too small for her girth. Doubt cellulitis. 2. Obstructive sleep apnea-becomes very somnolent with narcotics and these have been discontinued. Will try Toradol today. She is willing to try BIPAP tonight 3. Atrial fibrillation 4. Super morbid obesity 5. COPD 6. Obstructive sleep apnea-untreated 7. Chronic anemia of chronic renal failure 8. Diabetes mellitus type 2 9. End-stage renal disease on hemodialysis 10. Tachybradycardia syndrome 11. Depression 12. Hyperlipidemia 13. Excessive caloric intake-consume 600 randi a day in supplements to keep her protein up and discussed with dietary and they recommend a 1600-calorie diet daily......including any protein supplements 14. markedly increased ESR and CRP - no obvious infection? start OXY IR 5 mg PO Q 4 hours PRN pain Start metoprolol 25 mg p.o. twice daily for better heart rate control Continue amiodarone Code Visit Inpatient E&M: 67377 Subs Hosp L2
[2018-08-05 17:56] LABS: Bedside Glucose 186 mg/dL (70-110)
[2018-08-05] MEDS: Meloxicam 7.5 MG Tablet PO (18:30)
[2018-08-05] MEDS: Magnesium Oxide 400 MG Tablet 800 MG PO (18:30)
[2018-08-05] MEDS: oxyCODONE 5 MG Tablet PO (20:45)
[2018-08-05] MEDS: Sodium Chloride 0.65% 1 SPRAY SPRAY.BTL 2 SPRAY NASAL (22:05)
[2018-08-05] MEDS: Polyethylene Glycol 3350 17 GM PACKET PO (22:07)
[2018-08-05] MEDS: Pramipexole Di-HCl 1 MG Tablet PO (22:17)
[2018-08-05] MEDS: Montelukast 10 MG Tablet PO (22:18)
[2018-08-05 22:51] LABS: Bedside Glucose 220 mg/dL (70-110)
[2018-08-06] VITALS (9 sets, daily range): BP systolic 72–136; BP diastolic 49–105; PULSE 85–118; RESP 18–22; TEMP 36.4–36.9; O2SAT 93–100
[2018-08-06] MEDS: Heparin Injection (Vial) 5,000 UNIT/ML VIAL 5000 UNIT SC ×2 (06:11→14:48)
[2018-08-06] MEDS: Midodrine HCl 5 MG Tablet 10 MG PO ×2 (06:12→14:43)
[2018-08-06] MEDS: Nystatin Powder 15gm Bottle 1 APPLIC TOPICAL ×2 (06:12→14:43)
[2018-08-06] MEDS: Levothyroxine 25 MCG TABLET PO (06:13)
[2018-08-06] MEDS: Acetaminophen 500 MG Tablet 1000 MG PO ×2 (06:14→14:48)
[2018-08-06 06:42] LABS: Vancomycin, Random Level 14.5 ug/mL (0.0-15.0)
[2018-08-06 07:01] LABS: Bedside Glucose 199 mg/dL (70-110)
[2018-08-06] MEDS: Ipratropium/Albuterol Sulfate 3 ML AMPUL.NEB INHALATION (07:15)
[2018-08-06] MEDS: Budesonide Respules 0.5 MG/2 ML AMPUL.NEB. INHALATION (07:15)
[2018-08-06] MEDS: oxyCODONE 5 MG Tablet PO ×2 (08:17→12:26)
[2018-08-06 12:20] LABS: Bedside Glucose 109 mg/dL (70-110)
--- NOTE | 2018-08-06 12:20 | DIALYSIS ---
Hemodialysis tx completed x 3.5 hours. Pt hypotensive pre-tx and through out tx and pt asymptomatic throughout. Fluid removed 2000ml. Verbal report given to GUNJAN Mcclellan post tx. Next scheduled dialysis tx 08/09/2017.
[2018-08-06] MEDS: Insulin Lispro 100 UNIT/ML INSULN.PEN SC (12:26)
[2018-08-06] MEDS: Sertraline 50 MG Tablet PO (12:26)
[2018-08-06] MEDS: Pantoprazole Sodium 20 MG Tablet PO (12:27)
[2018-08-06] MEDS: Aspirin 81 MG TAB.CHEW PO (12:27)
[2018-08-06] MEDS: Amiodarone 200 MG Tablet PO (12:27)
[2018-08-06] MEDS: Calcium Acetate 667 MG Capsule PO (12:27)
[2018-08-06] MEDS: Metoprolol Tartrate 25 MG Tablet PO (12:27)
[2018-08-06] MEDS: Menthol/Lanolin/Calamine/Znox 113 GM Tube 1 APPLIC TOPICAL (12:28)
[2018-08-06] MEDS: Meloxicam 7.5 MG Tablet PO (12:28)
--- NOTE | 2018-08-06 13:49 | NURSING ---
Pressure injuries to bilateral hips much improved. cleansed with soap and water. pat dry. applied new Mepilex dressings. Dr Pena in to assess wounds as well. pt to follow up at the wound center after discharge. pt discharged back to the senior care per Dr Pena.
--- NOTE | 2018-08-06 13:49 | CASEMGMT ---
BISHOP spoke with physician and she said patient will be d/c today. BISHOP let Bailee know this information and asked who normally transports her to dialysis. [facility] does via . BISHOP will check with [facility]. Wilma CURRY
--- NOTE | 2018-08-06 13:52 | TREXTCAR_ITS ---
- Diet 08/02/18 21:54 Diet: Calorie Controlled How many daily calories?: 1800, including supplements. She should have Maykel BID until the wounds are healed - Routine Orders/Code Status Enema Type: Fleetz Enema Frequency: Daily PRN Suppository Type: Dulcolax 10mg Suppository Frequency: Daily PRN O2 Liters per Minute: 3 O2 Frequency: Continuous Keep PO Greater than or Equal to (%): 90 - Wound(s) HIPS Wound Type: Pressure Injury Right Hip Wound Type: Pressure Injury Dressing Change: applied Mepilex Left upper hip Wound Type: Pressure Injury Left lower hip Wound Type: Pressure Injury right abd fold Wound Type: Skin Tear left abd fold Wound Type: Skin Tear left breast fold Wound Type: Skin Tear left hand index finger Wound Type: Abrasion left hand middle finger Wound Type: Abrasion left hip Wound Type: Pressure Injury Dressing Change: applied mepilex left posterior thigh Wound Type: Pressure Injury Dressing Change: applied Mepilex left inner buttock Wound Type: Pressure Injury bilateral AC Wound Type: moist red - Suggestions for Active Care Change Position every (hours): 2 Hours to sit in a chair: 1 Times a day to sit in chair: 3 - MUST have a bariatric wheelchair as the hip decubitus ulcers developed due pressure from the sides of a WC that is too small - Therapies Weight Bearing: Full weight bearing Physical Therapy: Eval and Treat Occupational Therapy: Eval and Treat - Problem/Diagnosis (1) Decubitus ulcer of left hip, stage 2 Status: Acute Current Visit: Yes (2) Decubitus ulcer of right hip, stage 2 Status: Acute Current Visit: Yes (3) Super obesity Status: Chronic Current Visit: Yes (4) Anemia in chronic kidney disease Status: Chronic Current Visit: Yes (5) Excessive dietary caloric intake Status: Chronic Current Visit: Yes (6) ESR raised Status: Acute Comment: ESR is 130 and the CRP is 135 - etiology unknown at t his time Current Visit: Yes (7) Cellulitis of left hip Status: Ruled-out Current Visit: Yes (8) Chronic obstructive pulmonary disease (COPD) Status: Chronic Current Visit: Yes (9) Diabetes mellitus, type II Status: Chronic Current Visit: Yes (10) GRAEME (obstructive sleep apnea) Status: Chronic Comment: non-compliant with CPAP Current Visit: Yes (11) C. difficile colitis Status: Resolved Current Visit: No (12) Clostridium difficile enterocolitis Status: Acute Comment: Recent, still on oral Vancocin Current Visit: No (13) Fall (on) (from) other stairs and steps, initial encounter Status: Inactive Current Visit: No (14) H/O skin graft Status: Inactive Comment: 07/[address] Archie Fung to the nonhealing wound of the right lower extremity Current Visit: No (15) infected ischial tuberosity ulcer Status: Chronic Current Visit: No (16) infected ischial tuberosity ulcer Status: Resolved Current Visit: No (17) Biatrial enlargement Status: Chronic Current Visit: No (18) Cardiac pacemaker in situ Status: Chronic Current Visit: No (19) Carotid bruit Status: Chronic Current Visit: No (20) Contusion of right lower leg Status: Chronic Comment: Resulting in a nonhealing wound Current Visit: No (21) Decubitus ulcer of ankle, stage 2 Status: Chronic Current Visit: No (22) ESRD (end stage renal disease) on dialysis Status: Chronic Current Visit: No (23) HLD (hyperlipidemia) Status: Chronic Current Visit: No (24) History of depression Status: Chronic Current Visit: No (25) Hyperkalemia Status: Resolved Current Visit: No (26) Hypertension Status: Chronic Current Visit: No (27) Paroxysmal atrial fibrillation Status: Chronic Current Visit: No (28) Pulmonary HTN Status: Chronic Current Visit: No (29) Right lower leg eschar Status: Chronic Current Visit: No (30) Tachycardia-bradycardia syndrome Status: Chronic Current Visit: No - Allergies/Procedures Done in Hospital Allergies/Adverse Reactions: Allergies rosuvastatin calcium [From Crestor] Allergy (Verified 08/02/18 16:51) Unknown Patient stated that she does not remember, it has been so long ago. Penicillins Adverse Reaction (Verified 08/02/18 16:51) Unknown GETS YEAST INFECTION prednisone Adverse Reaction (Verified 08/02/18 16:51) Other SENDS BLOOD SUGARS HIGH simvastatin Adverse Reaction (Verified 08/02/18 16:51) Unknown FEELS FUNNY Procedures: Dialysis - Type of Care/Length of Stay Estimated LOS: More Than 30 Days Type of Care Needed: Intermediate Rehab Potential: Fair Prognosis: Fair - Additional Orders/Day of Discharge Additional Orders: She needs a bariatric low air loss mattress and a bariatric wheelchair that accomodates her width without putting pressure on the hips laterally. Until the wounds on the hips are healed she should spend no more than 30-60 minutes in the wheelchair 3 times a day. When she is in bed she needs turned every 2 hours. Apply Mepilex to the wounds on the hips every 3 days and PRN if the dressing comes loose. H&P will serve as current which was dated: 08/02/18 Day of Discharge: 08/06/18 - Dietary and Speech Recommendations Dietitian Recommendations/Changes: Rec Maykel bid to help w/ skin healing. Rec diet change to 1800 randi Cardiac/low sodium w/ fluid restriction prn d/t CKD4. Rec d/c ONS medpass once po intake improves as gradual wt loss desirable. - Follow Up Care Primary Care Physician: Yusuf Fung III, MD [Primary Care Provider] - Please follow up with your Primary Care Physician in: 2 weeks Please Follow Up With: Wound care center When: next week
--- NOTE | 2018-08-06 14:12 | PCM.DC.SUM ---
Discharge Date and Diagnosis - Problem List Patient Problems: Active and Suspected Problems (Last Reviewed 09/09/17 @ 15:25 by Padmini Mitchell) Decubitus ulcer of left hip, stage 2 (Acute) Decubitus ulcer of right hip, stage 2 (Acute) ESR raised (Acute) ESR is 130 and the CRP is 135 - etiology unknown at this time Date of Admission: 08/02/18 Date of Discharge: 08/06/18 - Primary Discharge Diagnosis Active and Suspected Problems (Last Reviewed 09/09/17 @ 15:25 by Padmini Mitchell) Decubitus ulcer of left hip, stage 2 (Acute) Decubitus ulcer of right hip, stage 2 (Acute) Cellulitis - ruled out ESR raised (Acute) ESR is 130 and the CRP is 135 - etiology unknown at this time - Secondary Discharge Diagnosis Chronic Problems (Last Reviewed 09/09/17 @ 15:25 by Padmini Mitchell) Chronic obstructive pulmonary disease (COPD) (Chronic) GRAEME (obstructive sleep apnea) (Chronic) non-compliant with CPAP Diabetes mellitus, type II (Chronic)-controlled, hemoglobin A1c is 7.1 Super obesity (Chronic) Anemia in chronic kidney disease (Chronic) Excessive dietary caloric intake (Chronic) Paroxysmal atrial fibrillation (Chronic) Cardiac pacemaker in situ (Chronic ~02/23/14) Hypertension (Chronic) Carotid bruit (Chronic) Tachycardia-bradycardia syndrome (Chronic) History of depression (Chronic) HLD (hyperlipidemia) (Chronic) Biatrial enlargement (Chronic) Pulmonary HTN (Chronic) ESRD (end stage renal disease) on dialysis (Chronic) Contusion of right lower leg (Chronic) Resulting in a nonhealing wound Right lower leg eschar (Chronic) Decubitus ulcer of ankle, stage 2 (Chronic) infected ischial tuberosity ulcer (Chronic) Hospital Course and Treatment Imaging Results: Microbiology 08/02/18 17:45 Blood Culture (Wb) - Right Hand Blood Culture - Preliminary No growth in 48 hours. 08/02/18 17:00 Blood Culture (Wb) - Anticubital Right Blood Culture - Preliminary No growth in 48 hours. Consultations 08/02/18 21:54 Consult: Onc/Wound/granulating machine operator Routine Comment: Dr. Andrew Long -nephrology Operations: None, - Procedures: Dialysis Summary of Care Provided: The patient is a 63-year-old female with a past medical history of super obesity, COPD, obstructive sleep apnea (non-compliant with CPAP), anemia of chronic renal disease, diabetes mellitus type 2, PAF, pacemaker implantation, hypertension, tachybradycardia syndrome, depression, hyperlipidemia, pulmonary hypertension and end-stage renal disease on hemodialysis who presented to the emergency department at [facility] on 08/02/2018 complaining of worsening skin breakdown to the bilateral hips over the previous 2-3 weeks. She had a subjective fever and denied chills. She is chronically wheelchair and bedbound. Over the past 18 months she has gained 41 pounds. Vital signs at presentation to the emergency room were temp 98.2, heart rate 47, blood pressure 93/57, respiratory rate 16 and she was 97% saturated on room air. Significant lab included a white blood cell count of 8.1 with 74% neutrophils. Hemoglobin was 10.9 which is her baseline. Platelets were within normal limits. Electrolytes were within normal limits and the BUN was 32 with a creatinine of 3.34. Hemoglobin A1c was 7.1 and lactic acid was 1.5. Calcium was elevated at 10.2. She was administered morphine, fentanyl, Rocephin and vancomycin in the emergency department. On physical examination she had intertrigo, erythema to both hips with increased warmth to touch, no odor, no purulent DC and superficial skin breakdown consistent with stage 2 decubitus ulcers. She was admitted and placed on IV vancomycin given history of MRSA in the past. The erythema was outlined. The following day she had no fever and the WBC was normal. Cellulitis was ruled out and Vancomycin was discontinued. Wound care was ordered and she was placed in a bariatric low air loss bed. Dr. Krishna was consulted for HD. BP's were very labile and I do not feel reliable. They were all taken in the R forearm and even when the BP was very low she denied lightheadedness, had good color in her face, was alert and appropriate and had no diaphoresis. I do not believe the blood pressures. HR increased when she was having pain. The initial pain regimen in this pt with untreated GRAEME caused her to be obtunded and it was discontinued. She was started on ATC Tylenol and this was not effective. On 08/05/18 she was started on OXY IR 5 mg every 4 hours as needed and on 08/06/18 her pain was adequately controlled and the HR was improved. Telemetry showed AF with 2 10 beat runs of paced rhythm. She was taking Lopressor 25 mg BID to control the fast rates and the BP was 125/63. She was dialyzed and discharged to the PA. GENERAL: alert, oriented X 3, Cooperative, NAD ORAL: moist mucosa, no mucosal lesions NECK: trachea midline LUNGS: CTA, symmetric chest expansion, very diminished BS's throughout HEART: irregular, Normal S1 and S2, no rub, no gallop, no MM ABDOMEN: soft, NT, ND, BS present, no guarding with palpation, obese EXTREMITIES: dependent edema of the distal LE's with hyperpigmentation of the skin due to chronic venous stasis ( no openings in the skin) , no cyanosis, no calf tenderness SKIN: she has stage 2 decubitus ulcers on both lateral hip/upper thigh areas. The Left is worse than the right. These have no odor and no purulent DC. The erythema is less and so is the warmth to touch.....The wounds are still stage 2 but there are now some islands of granulation. The stage 2 decubitus ulcers on the right hip are much improved and there is no evidence of infection. NEUROLOGIC: no focal neurologic deficits PSYCH: appropriate, normal affect, pleasant This note was generated with [employer] dictation software. It may contain incorrect words, spelling, and punctuation that were not noted in checking the note before signing. Patient Problems: Active and Suspected Problems (Last Reviewed 09/09/17 @ 15:25 by Padmini Mitchell) Decubitus ulcer of left hip, stage 2 (Acute) Decubitus ulcer of right hip, stage 2 (Acute) ESR raised (Acute) ESR is 130 and the CRP is 135 - etiology unknown at this time - Physical Exam Vital Signs Temp Pulse Resp BP Pulse Ox 98.3 F 99 18 125/63 H 93 08/06/18 09:15 08/06/18 12:27 08/06/18 09:15 08/06/18 09:15 08/06/18 09:15 Oxygen Flow Rate (L/min) 3 Oxygen Delivery Method Nasal Cannula Weight: 337 lb 4.916 oz Body Mass Index (BMI) 61.4 Finger Stick Blood Glucose 206 Intake and Output for Last 24 Hours 08/04/18 08/05/18 08/06/18 23:59 23:59 23:59 Intake Total 1600 / 1600 1390 / 1390 200 / 200 Output Total 2400 / 2400 1999 / 1999 Balance -800 / -800 1390 / 1390 -1800 / -1800 Microbiology Past 72 Hours 08/02/18 17:45 Blood Culture - Preliminary Blood Culture (Wb) - Right Hand No growth in 48 hours. 08/02/18 17:00 Blood Culture - Preliminary Blood Culture (Wb) - Anticubital Right No growth in 48 hours. Laboratory Tests Past 24 Hrs 08/04/18 08/06/18 14:15 05:50 Random Vancomycin 14.5 Hep Bs Antibody Reactive POC Glucose 08/06/18 08/06/18 08/05/18 11:45 06:50 22:12 POC Glucose 109 199 H 220 H 08/05/18 16:25 POC Glucose 186 H Home Medications: Medications to take at Discharge Albuterol Aerosols [Ventolin Aerosols] 2.5 mg INHALATION Q4H PRN PRN 02/14/17 Amiodarone HCl [Cordarone] 200 mg PO DAILY 02/14/17 Aspirin [Aspirin, Baby] 81 mg PO DAILY@0800 02/14/17 Benzonatate [Tessalon Perle] 100 mg PO PRN PRN 02/14/17 Bisacodyl [Dulcolax] 10 mg RECTAL PRN PRN 02/14/17 Calcium Acetate 667 mg PO TID 02/14/17 Dextrose [Glucose Gel] 38 gm PO PRN PRN 02/14/17 Glucagon,Human Recombinant [Glucagon Emergency Kit] 1 mg IJ PRN PRN 02/14/17 Guaifenesin [Robitussin] 10 ml PO Q4H PRN PRN 02/14/17 Insulin Detemir [Levemir FlexPen] 12 units SC QHS 02/14/17 Insulin Lispro [Humalog] 4 unit SQ TIDCM 02/14/17 Magnesium Hydroxide [Milk Of Magnesia] 30 ml PO DAILY PRN PRN 02/14/17 Meloxicam [Mobic] 7.5 mg PO DAILY 02/14/17 Montelukast [Singulair] 10 mg PO QHS 02/14/17 Na Phos,M-B/Na Phos,Di-Ba [Fleet Enema] 1 bottle RECTAL PRN PRN 02/14/17 Sertraline HCl [Zoloft] 50 mg PO DAILY 02/14/17 Cholecalciferol (Vitamin D3) [Vitamin D3] 2,000 unit PO DAILY 08/02/18 Fluticasone 110 Mcg [Flovent 110 Mcg] 1 puff INHALATION BID 08/02/18 Guaifenesin [Guaifenesin ER] 1,200 mg PO BID PRN PRN 08/02/18 Guaifenesin/Codeine [Robitussin AC] 10 ml PO Q6H PRN PRN 08/02/18 Insulin Glargine [Lantus SoloStar Pen] 12 units SC QHS 08/02/18 Insulin Lispro [Humalog] See Protocol SQ ACHS 08/02/18 Lactobacillus Rhamnosus GG [Culturelle] 1 mg PO DAILY 08/02/18 Levothyroxine [Synthroid] 25 mcg PO DAILY 08/02/18 Mag Hydrox/Aluminum Hyd/Simeth [Antacid Suspension] 30 ml PO Q4H PRN PRN 08/02/18 Midodrine HCl 10 mg PO TID 08/02/18 Nystatin [Mycostatin] 1 applic TOPICAL BID 08/02/18 Omeprazole 20 mg PO DAILY 08/02/18 Polyethylene Glycol 3350 [Miralax] 17 gm PO QHS 08/02/18 Pramipexole Di-HCl [Mirapex] 0.5 mg PO DAILY 08/02/18 Pramipexole Di-HCl [Mirapex] 1 mg PO QHS 08/02/18 Silver Sulfadiazine 1% Crm [Silvadene Cream] 1 applic TOPICAL PRN PRN 08/02/18 Thrive Protein 1 pack PO DAILY 08/02/18 traMADol [Ultram] 50 mg PO Q8H PRN PRN 08/02/18 traMADol [Ultram] 50 mg PO QHS PRN PRN 08/02/18 Acetaminophen [Tylenol] 1,000 mg PO Q8 tablet 08/06/18 Glucerna Shake 120 ml PO 4X/DAY liquid 08/06/18 Metoprolol Tartrate [Lopressor (beta marvel)] 25 mg PO BID tablet 08/06/18 Nystatin Powder [Mycostatin Powder] 1 applic TOPICAL TID bottle 08/06/18 Oxycodone [Oxyir] 5 mg PO Q4H PRN PRN 7 Days #30 tab 08/06/18 Following Prescrptions Were Given to Patient: Oxycodone [Oxyir] 5 mg PO Q4H PRN PRN 7 Days #30 tab PRN Reason: Severe Pain (-05/12) Primary Care Physician: Yusuf Fung III, MD [Primary Care Provider] - Please follow up with your Primary Care Physician in: 2 weeks Please Follow Up With: Wound care center When: next week Disposition: [facility] facility Minutes spent on discharge:: 40 Patient Condition:: Stable Medical Necessity - Tobacco Use Smoking Status: Former smoker Tobacco Use: Non-smoker Meaningful Use Info Meaningful Use Diagnoses (Choose all that apply): None applicable Code Visit Inpatient E&M: 03739 Disch Hosp
[2018-08-06] MEDS: Glucerna Shake 120 ML LIQUID PO (14:48)
--- NOTE | 2018-08-06 14:53 | CASEMGMT ---
BISHOP faxed orders to [facility]. Called [facility] and they do not have a large wc for patient. BISHOP called [facility] and they did not have a large wc either. BISHOP arranged transport with [facility] bariatric cot for 4p. BISHOP notified patient, Bailee at [facility], RN, and marine services technician. Plan: d/c back to [facility] under intermediate level of care. [facility] transported her via bariatric cot. Wilma HICKEY MSW
--- NOTE | 2018-08-06 15:35 | NURSING ---
Report called to Nikunj at [facility]
[2018-08-06 15:40] LABS: ANTINUCLEAR ANTIBODIES DIRECT Negative (Negative)
--- NOTE | 2018-08-06 17:03 | PN.RENAL_ITS ---
Patient Problems: Active and Suspected Problems (Last Reviewed 09/09/17 @ 15:25 by Padmini Mitchell) Decubitus ulcer of left hip, stage 2 (Acute) Decubitus ulcer of right hip, stage 2 (Acute) ESR raised (Acute) ESR is 130 and the CRP is 135 - etiology unknown at this time Subjective: no new events - Physical Exam General: Alert, Oriented x3, Cooperative HEENT: Atraumatic, PERRLA, EOMI, Normocephalic Neck: Supple, No JVD, Negative Carotid Bruits Lungs: Clear to auscultation, Normal air movement Cardiovascular: Regular rate, No murmurs Abdomen: Bowel Sounds Present, Soft, Non Tender Extremities: No edema, Capillary Refill Less than 3 Seconds Skin: No rashes, No breakdown Musculoskeletal: No Tenderness to Palpation of Joints or Extremities Neurological: Cranial nerves II-XII grossly intact Psych/Mental Status: Normal Affect, Appropriate Vital Signs Temp Pulse Resp BP Pulse Ox 98.4 F 98 18 118/104 H 100 08/06/18 14:37 08/06/18 14:37 08/06/18 14:37 08/06/18 14:37 08/06/18 14:37 Oxygen Flow Rate (L/min) 3 Oxygen Delivery Method Nasal Cannula Weight: 153 kg Body Mass Index (BMI) 61.4 Finger Stick Blood Glucose 206 Intake and Output for Last 24 Hours 08/04/18 08/05/18 08/06/18 23:59 23:59 23:59 Intake Total 1600 / 1600 1390 / 1390 200 / 200 Output Total 2400 / 2400 1999 / 1999 Balance -800 / -800 1390 / 1390 -1800 / -1800 Microbiology Past 72 Hours 08/02/18 17:45 Blood Culture - Preliminary Blood Culture (Wb) - Right Hand No growth in 48 hours. 08/02/18 17:00 Blood Culture - Preliminary Blood Culture (Wb) - Anticubital Right No growth in 48 hours. Laboratory Tests Past 24 Hrs 08/05/18 08/06/18 05:40 05:50 Random Vancomycin 14.5 LILLIANA Screen Negative POC Glucose 08/06/18 08/06/18 08/05/18 11:45 06:50 22:12 POC Glucose 109 199 H 220 H 08/05/18 16:25 POC Glucose 186 H Medical Necessity - Tobacco Use Smoking Status: Former smoker Tobacco Use: Non-smoker Assessment/Plan All Active Problems (Last Reviewed 09/09/17 @ 15:25 by Padmini Mitchell) Cellulitis of left hip (Ruled-out) Decubitus ulcer of left hip, stage 2 (Acute) Decubitus ulcer of right hip, stage 2 (Acute) ESR raised (Acute) Clostridium difficile enterocolitis (Acute) C. difficile colitis (Resolved) Hyperkalemia (Resolved) MRSA (methicillin resistant Staphylococcus aureus) infection (Resolved) Pseudomonas aeruginosa infection (Resolved) infected ischial tuberosity ulcer (Resolved) 1- ESRD on MWF. Pt goes to [facility] HD center .HD MWF schedule 2- Chronic hypotension. Continue midodrine 3- BMD:Continue Ca acetate with meals 4-DU of both hips. 5-A. fib with RVR. Cardiology service to be consulted
[2018-08-06 17:50] LABS: Bedside Glucose 130 mg/dL (70-110)
== END 2018-08-06 16:30 | disposition intermediate care facility (04) | DRG 380 ==
LOC: ED 19:34 → MS2 20:40 → PCU 08-04 23:44
PROVIDERS: Internal Medicine Nephrology; Admitting Provider Family Medicine; Emergency Provider Emergency Medicine; Family Provider Family Medicine; PCP Family Medicine; Referring Provider Family Medicine; Visit Provider Internal Medicine
DX: L89.222 Pressure ulcer of left hip, stage 2 (principal); L89.212 Pressure ulcer of right hip, stage 2; L89.892 Pressure ulcer of other site, stage 2; Z68.44 Body mass index [BMI] 60.0-69.9, adult; E66.01 Morbid (severe) obesity due to excess calories; E11.22 Type 2 diabetes mellitus with diabetic chronic kidney disease; I12.0 Hypertensive chronic kidney disease with stage 5 chronic kidney disease or end stage renal disease; N18.6 End stage renal disease; I48.2 Chronic atrial fibrillation; E03.9 Hypothyroidism, unspecified; J44.9 Chronic obstructive pulmonary disease, unspecified; G47.33 Obstructive sleep apnea (adult) (pediatric); L30.4 Erythema intertrigo; Z66 Do not resuscitate; Z99.3 Dependence on wheelchair; I25.10 Atherosclerotic heart disease of native coronary artery without angina pectoris; E78.5 Hyperlipidemia, unspecified; Z87.891 Personal history of nicotine dependence; Z99.2 Dependence on renal dialysis; Z95.0 Presence of cardiac pacemaker; Z79.4 Long term (current) use of insulin; Z79.82 Long term (current) use of aspirin; D63.1 Anemia in chronic kidney disease; I27.20 Pulmonary hypertension, unspecified; Z86.14 Personal history of Methicillin resistant Staphylococcus aureus infection
CPT/HCPCS: 36415; 80048; 80053; 80069; 80202; 82962; 83036; 83605; 83735; 85025; 85610; 85652; 86038; 86140; 86225; 86235; 86431; 86706; 87040; 90937; 93005; 94002; 94640; 97162; 97165; 97802; 99285; J7030; J7040; J7050; A4216; G0257

== ENCOUNTER 2018-08-17 17:51 | Inpatient (IN) | payer MEDICAID, MEDICARE, SELFPAY ==
[2018-08-02 21:19] VITALS: BMI 61.4
[2018-08-17] VITALS (11 sets, daily range): BP systolic 93–154; BP diastolic 58–111; PULSE 62–110; RESP 18–22; TEMP 36–37.1; O2SAT 93–99; BMI 61.2; BMI 59.6
[2018-08-17 18:26] LABS: Bedside Glucose 53 mg/dL (70-110)
[2018-08-17] MEDS: Dextrose 50%-Water 25 GM/50 ML DISP.SYRIN IV (18:30)
--- NOTE | 2018-08-17 18:44 | EKG12_ITS ---
Test Reason : SOB Blood Pressure : / mmHG Vent. Rate : 101 BPM Atrial Rate : 105 BPM P-R Int : 000 ms QRS Dur : 098 ms QT Int : 348 ms P-R-T Axes : 000 067 201 degrees QTc Int : 451 ms Atrial fibrillation with rapid ventricular response Low voltage QRS Nonspecific ST and T wave abnormality Abnormal ECG Confirmed by GILMAR KU, DESTIN ([id number]), scientific publications editor NADINE SHAH ([id number]) on 08/19/2018 3:49:48 PM Referred By: GWENDOLYN HERNANDEZ Confirmed By:DESTIN SCHAFER MD
[2018-08-17] MEDS: 0.9% Normal Saline 1,000 ML 150 ML IV (18:51)
--- NOTE | 2018-08-17 18:57 | RAD_ITS ---
HISTORY: DYSPNEA EXAM: XR Chest 1 View: COMPARISON: 03/16/17 chest radiograph. FINDINGS: # of images incl. paperwork: 1 LINES/DEVICES: Implanted cardiac device right chest, leads extend over the right atrium and right ventricle, unchanged. LUNGS: Radiographically clear. No consolidation, edema or effusion. No pneumothorax. Mild vascular congestion which is similar to prior. MEDIASTINUM AND CARDIOVASCULAR STRUCTURES: Cardiac silhouette is enlarged. Central airways and mediastinal contour are unremarkable. BONES AND SOFT TISSUES: Unremarkable. RAD/Chest 1 View (Portable) IMPRESSION: Cardiomegaly with vascular congestion, similar to prior. at 1953 Reported and signed by: Ismael Lemos MD Electronically Signed: Ismael Lemos, at 19:50 EST Tel , Service support ,
[2018-08-17 19:07] LABS: Anion Gap 9 (5-15); BUN 44 mg/dL (7-18); BUN/Creat Ratio 13.2 RATIO (10-20); Calcium,Total 9.4 mg/dL (8.5-10.1); Chloride 94 mmol/L (98-107); Creatinine, Serum 3.34 mg/dL (0.55-1.02); EST Glomerular Filtration Rate 15 mL/min (>60); Est Glom Filt Rate - Afr Amer 18 mL/min (>60); Estimated Creatinine Clearance 13.28 ml/min; Glucose 51 mg/dL (74-106); Potassium 3.4 mmol/L (3.5-5.1); Sodium Level 135 mmol/L (136-145)
[2018-08-17] MEDS: Ipratropium/Albuterol Sulfate 3 ML AMPUL.NEB INHALATION ×2 (19:11→22:55)
[2018-08-17 19:19] LABS: Absolute Neutrophil Count 15.3 X10^3/uL (2.0-7.7); Basophil# 0.03 X10^3/uL; Basophil% 0.2 % (0-1); Eosinophil# 0.07 X10^3/uL; Eosinophils% 0.4 % (0-5); Hematocrit 34.4 % (37-47); Hemoglobin 10.3 g/dl (12.0-15.0); Lymphocyte % 8.6 % (19-41); Mean Corp Hgb Conc 29.9 g/gl (32-36); Mean Corpuscular Hgb 29.3 pg (27.0-32.0); Mean Corpuscular Volume 97.7 fL (81-99); Mean Platelet Vol. 9.7 fl (6.2-12.0); Monocyte# 1.24 X10^3/uL; Monocyte% 6.7 % (0-10); Neutrophil # 15.26 X10^3/uL (2.7-7.7); Neutrophil % 82.5 % (47-70); POSITIVE COUNT NO; POSITIVE DIFFERENTIAL NO; POSITIVE MORPHOLOGY NO; Platelet Count 240 K/mm3 (150-450); RBC Distribution Width CV 16.9 % (11.6-14.6); RBC Distribution Width SD 59.2 fl (35.1-43.9); Red Blood Count 3.52 M/mm3 (4.2-5.4); White Blood Count 18.5 K/mm3 (4.4-11.0)
[2018-08-17 19:21] LABS: D-Dimer Quantitative (DVT/PE) 1.29 FEU/ug/m (0.27-0.49)
--- NOTE | 2018-08-17 19:21 | ED.RN ---
DR SNOW NOTIFIED OF DDIMER RESULTS
[2018-08-17 19:51] LABS: Bedside Glucose 112 mg/dL (70-110)
--- NOTE | 2018-08-17 19:59 | PCM.HP.STD ---
Problem List (1) Cellulitis of left hip Status: Acute (2) Chronic obstructive pulmonary disease (COPD) Status: Chronic Qualifiers: Emphysema type: unspecified (3) GRAEME (obstructive sleep apnea) Status: Chronic Comment: non-compliant with CPAP (4) Diabetes mellitus, type II Status: Chronic Qualifiers: Diabetes mellitus intermodal dispatcher insulin use: with intermodal dispatcher use Diabetes mellitus complication status: with unspecified complications Qualified Code(s): E11.8 - Type 2 diabetes mellitus with unspecified complications; Z79.4 - group home (current) use of insulin (5) Decubitus ulcer of left hip, stage 2 Status: Chronic (6) Decubitus ulcer of right hip, stage 2 Status: Chronic (7) Anemia in chronic kidney disease Status: Chronic Qualifiers: Chronic kidney disease stage: on chronic dialysis Qualified Code(s): N18.6 - End stage renal disease; D63.1 - Anemia in chronic kidney disease; Z99.2 - Dependence on renal dialysis (8) Paroxysmal atrial fibrillation Status: Chronic (9) Hypertension Status: Chronic Qualifiers: Hypertension type: essential hypertension Qualified Code(s): I10 - Essential (primary) hypertension (10) Tachycardia-bradycardia syndrome Status: Chronic (11) History of depression Status: Chronic (12) HLD (hyperlipidemia) Status: Chronic Qualifiers: Hyperlipidemia type: unspecified Qualified Code(s): E78.5 - Hyperlipidemia, unspecified (13) Pulmonary HTN Status: Chronic (14) ESRD (end stage renal disease) on dialysis Status: Chronic (15) Clostridium difficile enterocolitis Status: Resolved History of Present Illness Date of Admission: 08/17/18 Chief Complaint: Fatigue, malaise, worsening L hip pain, Dyspnea The patient is a 63 y/o F w/ PMHx: Morbid Obesity, AOCD, ESRD on HD (HD M/W/F, last Thursday) following w/ Dr. Limon, Chronic wheelchair and bedbound, CAD, Chronic AF, HTN, HLD, Diabetes mellitus type II, GRAEME non-compliant with CPAP/BIPAP, Chronic COPD, Chronic Pain Syndrome who [facility], recently discharged on 08/06/18 following treatment of BL hip stage II decubitous ulcers w/ cellulitis ruled out w/ elevated ESR and CRP of unclear significance who now [facility]-p[facility] to [facility] on 08/17/18 with increased fatigue, weakness, malaise in addition to worsened primarily left hip wound redness, discharge, discomfort with patient subjective fever in addition to dyspnea complaints although she notes she has been less active, laying more with no market weight gain or worsened edema from baseline. Work-up in the ED included T 97.7, heart rate 109, BP 107/93, respiratory rate 18, 97% on 4 L nasal cannula, CBC with WBC 18.5, hemoglobin 10.3, platelet 240 with left shift, d-dimer 1.29, BMP with sodium 135, potassium 3.4, chloride 94, BUN/creatinine 44/3.34, glucose 51, troponin < 0.015, chest x-ray with mild congestion similar to prior. In the ED patient administered dextrose 25 g IV x1 secondary to noted hyperglycemia, DuoNeb, normal saline, clindamycin IV. CTPA ordered and pending per ED physician upon evaluation request. Past Medical History Past Medical History (Chronic Problems): Chronic Problems (Last Reviewed 09/09/17 @ 15:25 by Padmini Mitchell) Chronic obstructive pulmonary disease (COPD) (Chronic) GRAEME (obstructive sleep apnea) (Chronic) non-compliant with CPAP Diabetes mellitus, type II (Chronic) Decubitus ulcer of left hip, stage 2 (Chronic) Decubitus ulcer of right hip, stage 2 (Chronic) Super obesity (Chronic) Anemia in chronic kidney disease (Chronic) Excessive dietary caloric intake (Chronic) Paroxysmal atrial fibrillation (Chronic) Cardiac pacemaker in situ (Chronic ~02/23/14) Hypertension (Chronic) Carotid bruit (Chronic) Tachycardia-bradycardia syndrome (Chronic) History of depression (Chronic) HLD (hyperlipidemia) (Chronic) Biatrial enlargement (Chronic) Pulmonary HTN (Chronic) ESRD (end stage renal disease) on dialysis (Chronic) Contusion of right lower leg (Chronic) Resulting in a nonhealing wound Right lower leg eschar (Chronic) Decubitus ulcer of ankle, stage 2 (Chronic) infected ischial tuberosity ulcer (Chronic) Medical History: Medical History (Last Reviewed 09/09/17 @ 15:25 by Padmini Mitchell) Cardiac pacemaker in situ (Chronic) Onset Date: ~02/23/14 Z95.0 Hypertension (Chronic) I10 Carotid bruit (Chronic) R09.89 Tachycardia-bradycardia syndrome (Chronic) I49.5 History of depression (Chronic) Z86.59 HLD (hyperlipidemia) (Chronic) E78.5 Biatrial enlargement (Chronic) I51.7 Pulmonary HTN (Chronic) I27.2 ESRD (end stage renal disease) on dialysis (Chronic) N18.6, Z99.2 Contusion of right lower leg (Chronic) S80.11XA Resulting in a nonhealing wound Right lower leg eschar (Chronic) Clostridium difficile enterocolitis (Acute) A04.7 Recent, still on oral Vancocin Decubitus ulcer of ankle, stage 2 (Chronic) L89.502 infected ischial tuberosity ulcer (Chronic) Asthma J45.909 CKD (chronic kidney disease) N18.9 COPD (chronic obstructive pulmonary disease) J44.9 Family history of hypertension Z82.49 Family history of sudden cardiac Z82.41 Paroxysmal atrial fibrillation I48.0 Respiratory failure, chronic J96.10 Type 2 diabetes mellitus E11.9 GRAEME (obstructive sleep apnea) G47.33 C. difficile colitis (Resolved) Hyperkalemia (Resolved) E87.5 infected ischial tuberosity ulcer (Resolved) Acute on chronic respiratory failure with hypoxia and hypercapnia (Inactive) J96.21, J96.22 Benign essential hypertension (Inactive) I10 COPD (chronic obstructive pulmonary disease) (Inactive) J44.9 FH: sudden cardiac (SCD) (Inactive) Z82.41 Fall (on) (from) other stairs and steps, initial encounter (Inactive) W10.8XXA Family history of hypertension (Inactive) Z82.49 History of chronic respiratory failure (Inactive) Z87.09 On 3 L nasal O2 group home use of drug (Inactive) Z79.899 Obstructive sleep apnea (Inactive) G47.33 PAF (paroxysmal atrial fibrillation) (Inactive) I48.0 with RVR Pacemaker (Inactive) Z95.0 DCCV 04/2015 Postoperative hypotension (Inactive) I95.89 Super obesity (Inactive) E66.9 Type II diabetes mellitus (Inactive) E11.9 Allergies cyclobenzaprine [From Flexeril] Allergy (Verified 08/17/18 18:00) Other oxycodone Allergy (Verified 08/17/18 18:00) Other rosuvastatin calcium [From Crestor] Allergy (Verified 08/17/18 18:00) Unknown Patient stated that she does not remember, it has been so long ago. Penicillins Adverse Reaction (Verified 08/17/18 18:00) Unknown GETS YEAST INFECTION prednisone Adverse Reaction (Verified 08/17/18 18:00) Other SENDS BLOOD SUGARS HIGH simvastatin Adverse Reaction (Verified 08/17/18 18:00) Unknown FEELS FUNNY Home Medications: Ambulatory Orders Medication Instructions Recorded Amiodarone HCl [Cordarone] 200 mg PO DAILY 02/14/17 Aspirin [Aspirin, Baby] 81 mg PO DAILY@0800 02/14/17 Benzonatate [Tessalon Perle] 100 mg PO PRN PRN 02/14/17 Bisacodyl [Dulcolax] 10 mg RECTAL PRN PRN 02/14/17 Calcium Acetate 667 mg PO TIDCM 02/14/17 Dextrose [Glucose Gel] 38 gm PO PRN PRN 02/14/17 Glucagon,Human Recombinant 1 mg IJ PRN PRN 02/14/17 [Glucagon Emergency Kit] Insulin Lispro [Humalog] 4 unit SQ TIDCM 02/14/17 Magnesium Hydroxide [Milk Of 30 ml PO DAILY PRN PRN 02/14/17 Magnesia] Meloxicam [Mobic] 7.5 mg PO DAILY 02/14/17 Montelukast [Singulair] 10 mg PO QHS 02/14/17 Na Phos,M-B/Na Phos,Di-Ba [Fleet 1 bottle RECTAL PRN PRN 02/14/17 Enema] Sertraline HCl [Zoloft] 50 mg PO DAILY 02/14/17 Cholecalciferol (Vitamin D3) 2,000 unit PO DAILY 08/02/18 [Vitamin D3] Fluticasone 110 Mcg [Flovent 110 1 puff INHALATION BID 08/02/18 Mcg] Insulin Glargine [Lantus SoloStar 12 units SC QHS 08/02/18 Pen] Insulin Lispro [Humalog] See Protocol SQ ACHS 08/02/18 Lactobacillus Rhamnosus GG 1 mg PO DAILY 08/02/18 [Culturelle] Levothyroxine [Synthroid] 25 mcg PO DAILY 08/02/18 Mag Hydrox/Aluminum Hyd/Simeth 30 ml PO Q4H PRN PRN 08/02/18 [Antacid Suspension] Midodrine HCl 10 mg PO TID 08/02/18 Omeprazole 20 mg PO DAILY 08/02/18 Polyethylene Glycol 3350 [Miralax] 17 gm PO QHS 08/02/18 Pramipexole Di-HCl [Mirapex] 0.5 mg PO DAILY 08/02/18 Pramipexole Di-HCl [Mirapex] 1 mg PO QHS 08/02/18 traMADol [Ultram] 50 mg PO Q8H PRN PRN 08/02/18 Acetaminophen [Tylenol] 1,000 mg PO Q8 tablet 08/06/18 Glucerna Shake 120 ml PO 4X/DAY liquid 08/06/18 Argin/Glut/Cahmb/Collag/Mv-Min 1 pack PO BID 08/17/18 [Maykel Packet] Ascorbic Acid 500 mg PO DAILY 08/17/18 Collagenase [Santyl] 1 applic TP DAILY 08/17/18 Metoprolol Tartrate 12.5 mg PO BID 08/17/18 Multivit,Stress Formula/Zinc 1 tab PO DAILY 08/17/18 [Stress Formula with Zinc Tab] Multivit,Tx with Iron,Minerals 1 tab PO DAILY 08/17/18 [Thera-M] Surgical History: Surgical History (Last Reviewed 09/09/17 @ 15:25 by Padmini Mitchell) H/O skin graft (Inactive) Z98.890 07/[address] 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 history Lives: Intermediate Smoking Status: Former smoker Tobacco Use: Non-smoker Alcohol: None Drugs: None - *Family History Maternal Family History: Family History (Last Reviewed 09/09/17 @ 15:25 by Padmini Mitchell) Mother Diabetes Hypertension Grandmother Myocardial infarction Grandfather Hypertension Father Hypertension History Items: Diabetes, Hypertension Paternal Family History: Family History (Last Reviewed 09/09/17 @ 15:25 by Padmini Mitchell) Mother Diabetes Hypertension Grandmother Myocardial infarction Grandfather Hypertension Father Hypertension History Items: Hypertension Sibling Family History: Family History (Last Reviewed 09/09/17 @ 15:25 by Padmini Mitchell) Mother Diabetes Hypertension Grandmother Myocardial infarction Grandfather Hypertension Father Hypertension History Items: No pertinent history Review of Systems Constitutional: Reports: Anorexia, Fever, Malaise, Weakness, Fatigue. Denies: Chills, Weight Change HEENT: Denies: Head Aches, Sinus Congestion, Sinus Drainage Cardiovascular: Denies: Chest Pain, Palpitations Respiratory: Reports: Shortness of Breath, Shortness of breath at rest, Shortness of breath upon exertion. Denies: Cough, Sputum production, Wheezing Gastrointestinal: Denies: Abdominal Pain, Nausea, Vomiting Genitourinary: Denies: Dysuria Musculoskeletal: Reports: Joint Pain. Denies: Joint Tenderness Skin: Reports: Skin Changes, Wounds. Denies: Rash Neurological: Denies: Numbness, Tingling, Focal weakness Psychiatric: Reports: Anxiety, Depression. Denies: Homicidal Ideations, Suicidal Ideations Hematologic/ Lymphatic: Reports: Anemia. Denies: Easy Bruising, Easy Bleeding VTE Information - Inpt Only VTE Present on Admission: No VTE Mechan Device Prophylaxis: SCD's VTE Pharm Prophylaxis ordered?: Yes Subjective: Seated upright in the ED bed, fatigued appearance, notes pain w/ rotating in the bed, discomfort w/ evaluation of primarily L hip. Objective: Physical Examination: General: awake, alert, oriented x 3 and cooperative, seated upright in the ED bed in no apparent distress although uncomfortable with rolling. Skin: normal color, turgor, no icterus, cyanosis except noted intertrigo improved from prior examination, increased erythema to the left hip stage II decubitus ulcer region with foul-smelling dressing removed, right hip with foul-smelling dressing however no marked erythema noted, bilateral tenderness. HEENT: AT/NC, EOMI, PERRLA, mildly dry MM, no carotid bruits or JVD noted; however habitus makes examination difficult. Lungs: Diminished breath sounds bilaterally, greater bilateral bases, poor effort, no rales, ronchi or wheezing. Heart: Irregular; no gallop, rub audible. Abdomen: soft, obese, NTTP, ND, normal BS, unable to discern HSM secondary to habitus. Extremities: no cyanosis, clubbing, BL LE chronic venous skin changes, edema. Neurological: patient awake, alert, oriented x 3; cognitive function intact; pupils equally reactive to light and accomodation; cranial nerves II-XII grossly normal, moving all 4 extremities although limited, wheelchair and bedbound chronically, strength severely globally decreased. Psychiatric: affect appears fatigued, no acute evidence of depressive or anxiety feelings. - Physical Exam Vital Signs Temp Pulse Resp BP Pulse Ox 98.7 F 98 18 108/66 98 08/17/18 19:35 08/17/18 19:35 08/17/18 19:35 08/17/18 19:35 08/17/18 19:35 Oxygen Flow Rate (L/min) 4 Oxygen Delivery Method Room Air Weight: 335 lb 1.642 oz Body Mass Index (BMI) 61.2 Finger Stick Blood Glucose 112 Laboratory Tests Past 24 Hrs 08/17/18 08/17/18 08/17/18 18:30 18:30 18:30 WBC 18.5 H RBC 3.52 L Hgb 10.3 L Hct 34.4 L MCV 97.7 MCH 29.3 MCHC 29.9 L RDW 16.9 H RDW Differential 59.2 H Plt Count 240 MPV 9.7 Immature Gran % (Auto) 1.600 H Neut % (Auto) 82.5 H Lymph % (Auto) 8.6 L Garfield % (Auto) 6.7 Eos % (Auto) 0.4 Baso % (Auto) 0.2 Absolute Neuts (auto) 15.3 H Absolute Lymphs (auto) 1.60 Total Counted Not Reportable D-Dimer Quant (PE/DVT) 1.29 H* Sodium 135 L Potassium 3.4 L Chloride 94 L Carbon Dioxide 32.0 Anion Gap 9 BUN 44 H Creatinine 3.34 H Estim Creat Clear Calc 13.28 Est GFR (MDRD) Af Amer 18 L Est GFR (MDRD) Non-Af 15 L BUN/Creatinine Ratio 13.2 Glucose 51 L Calcium 9.4 Troponin I < 0.015 POC Glucose 08/17/18 08/17/18 19:39 18:20 POC Glucose 112 H 53 L Assessment/Plan All Active Problems (Last Reviewed 09/09/17 @ 15:25 by Padmini Mitchell) Cellulitis of left hip (Acute) ESR raised (Acute) Clostridium difficile enterocolitis (Resolved) C. difficile colitis (Resolved) Hyperkalemia (Resolved) MRSA (methicillin resistant Staphylococcus aureus) infection (Resolved) Pseudomonas aeruginosa infection (Resolved) infected ischial tuberosity ulcer (Resolved) The patient is a 63 y/o F w/ PMHx: Morbid Obesity, AOCD, ESRD on HD (HD M/W/F, last Thursday) following w/ Dr. Limon, Chronic wheelchair and bedbound, CAD, Chronic AF, HTN, HLD, Diabetes mellitus type II, GRAEME non-compliant with CPAP/BIPAP, Chronic COPD, Chronic Pain Syndrome who [facility]17, recently discharged on 08/06/18 following treatment of BL hip stage II decubitous ulcers w/ cellulitis ruled out w/ elevated ESR and CRP of unclear significance who now re-presents to [facility] on 08/17/18 with increased fatigue, weakness, malaise in addition to worsened primarily left hip wound redness, discharge, discomfort with patient subjective fever in addition to dyspnea complaints although she notes she has been less active, laying more with no market weight gain or worsened edema from baseline. (1) BL Hip Stage II Decubitous Ulcers with Suspected Acute L Sided Cellulitis, Infection: Admission CBC w/ WBC 18.5 with L shift, mildly tachycardic, left hip chronic wound w/ worsened erythema, foul smelling dressing. Will admit to PCU as pending ED initiated CTPA as elevated d-dimer, maintain on IV zosyn and vanc pending MRSA assessment, will de-escalate if negative, will obtain Wound Cx, will obtain Wound MRSA PCR, plan repeat CBC in AM, continue affected extremity elevation as much as able given location, wound RN consultation, Dr. Allan consultation requested, monitor erythema outline with VS checks. (2) Dyspnea, Multifactorial: Suspected secondary to hypoventilation syndrome, chronic COPD, GRAEME non-compliant with CPAP, CXR without marked congestion, appears stable, CTPA pending per ED given elevated D-dimer, will await result, plan HD in AM given this intervention, gentle IVFs to be continued. (3) Diabetes mellitus type II w/ Hypoglycemia: Hold oral home regimen, continue home insulin regimen, ADA diet, accu checks w/ ISS, nutrition consulted for education and teaching. BS in the ED improved w/ intervention. (4) End-stage renal disease: Patient with normal HD regimen Thursday, Thursday, Thursday, will consult Dr. Limon, will need HD per regimen and given CTPA per ED upon admission. Continue Midrin regimen. (5) Chronic Atrial Fibrillation: Continue home aspirin, amiodarone, metoprolol regimen. Not anticoagulated, suspected secondary to fall risk, CTPA pending as noted, heparin drip initiated in interim. (6) Hypertension: Continue home regimen including metoprolol, PRN hydralazine. (7) Hyperlipidemia: Statin allergy noted. (8) CAD: Continue home asa, BB, not on statin w/ allergy noted. (9) Morbid Obesity: Weight loss and lifestyle changes encouraged, nutrition consulted. (10) GRAEME: Noncompliant with sleep apnea CPAP/BIPAP regimen. (11) Hypothyroidism: Continue home synthroid regimen. (12) Chronic COPD: ATC duonebs, PRN albuterol, HOB, IS parameters. (13) Intertrigo: Continue nystatin powder application. (14) GERD: PPI. (15) DVT prophylaxis: SCDs, heparin drip as noted until CTPA results. (16) CODE status: Discussed CODE status at length including difference between FULL code, DNR-CCA and DNR-CC status. Following discussions about the differences in these status, requested continuation of DNR-CCA, no intubation status. Advanced Care Planning Face to Face Time: 16 minutes. Code Visit Inpatient E&M: 76091 Init Hosp L3 Procedures: 84445 Advncd Care Plan 30 Min
--- NOTE | 2018-08-17 20:03 | HP.PCM_ITS ---
Problem List (1) Cellulitis of left hip Status: Acute (2) Chronic obstructive pulmonary disease (COPD) Status: Chronic Qualifiers: Emphysema type: unspecified (3) GRAEME (obstructive sleep apnea) Status: Chronic Comment: non-compliant with CPAP (4) Diabetes mellitus, type II Status: Chronic Qualifiers: Diabetes mellitus exterminator helper termite insulin use: with exterminator helper termite use Diabetes mellitus complication status: with unspecified complications Qualified Code(s): E11.8 - Type 2 diabetes mellitus with unspecified complications; Z79.4 - custodial (current) use of insulin (5) Decubitus ulcer of left hip, stage 2 Status: Chronic (6) Decubitus ulcer of right hip, stage 2 Status: Chronic (7) Anemia in chronic kidney disease Status: Chronic Qualifiers: Chronic kidney disease stage: on chronic dialysis Qualified Code(s): N18.6 - End stage renal disease; D63.1 - Anemia in chronic kidney disease; Z99.2 - Dependence on renal dialysis (8) Paroxysmal atrial fibrillation Status: Chronic (9) Hypertension Status: Chronic Qualifiers: Hypertension type: essential hypertension Qualified Code(s): I10 - Essential (primary) hypertension (10) Tachycardia-bradycardia syndrome Status: Chronic (11) History of depression Status: Chronic (12) HLD (hyperlipidemia) Status: Chronic Qualifiers: Hyperlipidemia type: unspecified Qualified Code(s): E78.5 - Hyperlipidemia, unspecified (13) Pulmonary HTN Status: Chronic (14) ESRD (end stage renal disease) on dialysis Status: Chronic (15) Clostridium difficile enterocolitis Status: Resolved History of Present Illness Date of Admission: 08/17/18 Chief Complaint: Fatigue, malaise, worsening L hip pain, Dyspnea The patient is a 63 y/o F w/ PMHx: Morbid Obesity, AOCD, ESRD on HD (HD M/W/F, last Thursday) following w/ Dr. Limon, Chronic wheelchair and bedbound, CAD, Chronic AF, HTN, HLD, Diabetes mellitus type II, GRAEME non-compliant with CPAP/BIPAP, Chronic COPD, Chronic Pain Syndrome who presents to the [facility] ED on 08/17/17, recently discharged on 08/06/18 following treatment of BL hip stage II decubitous ulcers w/ cellulitis ruled out w/ elevated ESR and CRP of unclear significance who now re-presents to the [facility] ED on 08/17/18 with increased fatigue, weakness, malaise in addition to worsened primarily left hip wound redness, discharge, discomfort with patient subjective fever in addition to dyspnea complaints although she notes she has been less active, laying more with no market weight gain or worsened edema from baseline. Work-up in the ED included T 97.7, heart rate 109, BP 107/93, respiratory rate 18, 97% on 4 L nasal cannula, CBC with WBC 18.5, hemoglobin 10.3, platelet 240 with left shift, d-dimer 1.29, BMP with sodium 135, potassium 3.4, chloride 94, BUN/creatinine 44/3.34, glucose 51, troponin < 0.015, chest x-ray with mild congestion similar to prior. In the ED patient administered dextrose 25 g IV x1 secondary to noted hyperglycemia, DuoNeb, normal saline, clindamycin IV. CTPA ordered and pending per ED physician upon evaluation request. Past Medical History Past Medical History (Chronic Problems): Chronic Problems (Last Reviewed 09/09/17 @ 15:25 by Padmini Mitchell) Chronic obstructive pulmonary disease (COPD) (Chronic) GRAEME (obstructive sleep apnea) (Chronic) non-compliant with CPAP Diabetes mellitus, type II (Chronic) Decubitus ulcer of left hip, stage 2 (Chronic) Decubitus ulcer of right hip, stage 2 (Chronic) Super obesity (Chronic) Anemia in chronic kidney disease (Chronic) Excessive dietary caloric intake (Chronic) Paroxysmal atrial fibrillation (Chronic) Cardiac pacemaker in situ (Chronic ~02/23/14) Hypertension (Chronic) Carotid bruit (Chronic) Tachycardia-bradycardia syndrome (Chronic) History of depression (Chronic) HLD (hyperlipidemia) (Chronic) Biatrial enlargement (Chronic) Pulmonary HTN (Chronic) ESRD (end stage renal disease) on dialysis (Chronic) Contusion of right lower leg (Chronic) Resulting in a nonhealing wound Right lower leg eschar (Chronic) Decubitus ulcer of ankle, stage 2 (Chronic) infected ischial tuberosity ulcer (Chronic) Medical History: Medical History (Last Reviewed 09/09/17 @ 15:25 by Padmini Micthell) Cardiac pacemaker in situ (Chronic) Onset Date: ~02/23/14 Z95.0 Hypertension (Chronic) I10 Carotid bruit (Chronic) R09.89 Tachycardia-bradycardia syndrome (Chronic) I49.5 History of depression (Chronic) Z86.59 HLD (hyperlipidemia) (Chronic) E78.5 Biatrial enlargement (Chronic) I51.7 Pulmonary HTN (Chronic) I27.2 ESRD (end stage renal disease) on dialysis (Chronic) N18.6, Z99.2 Contusion of right lower leg (Chronic) S80.11XA Resulting in a nonhealing wound Right lower leg eschar (Chronic) Clostridium difficile enterocolitis (Acute) A04.7 Recent, still on oral Vancocin Decubitus ulcer of ankle, stage 2 (Chronic) L89.502 infected ischial tuberosity ulcer (Chronic) Asthma J45.909 CKD (chronic kidney disease) N18.9 COPD (chronic obstructive pulmonary disease) J44.9 Family history of hypertension Z82.49 Family history of sudden cardiac Z82.41 Paroxysmal atrial fibrillation I48.0 Respiratory failure, chronic J96.10 Type 2 diabetes mellitus E11.9 GRAEME (obstructive sleep apnea) G47.33 C. difficile colitis (Resolved) Hyperkalemia (Resolved) E87.5 infected ischial tuberosity ulcer (Resolved) Acute on chronic respiratory failure with hypoxia and hypercapnia (Inactive) J96.21, J96.22 Benign essential hypertension (Inactive) I10 COPD (chronic obstructive pulmonary disease) (Inactive) J44.9 FH: sudden cardiac (SCD) (Inactive) Z82.41 Fall (on) (from) other stairs and steps, initial encounter (Inactive) W10.8XXA Family history of hypertension (Inactive) Z82.49 History of chronic respiratory failure (Inactive) Z87.09 On 3 L nasal O2 custodial use of drug (Inactive) Z79.899 Obstructive sleep apnea (Inactive) G47.33 PAF (paroxysmal atrial fibrillation) (Inactive) I48.0 with RVR Pacemaker (Inactive) Z95.0 DCCV 04/2015 Postoperative hypotension (Inactive) I95.89 Super obesity (Inactive) E66.9 Type II diabetes mellitus (Inactive) E11.9 Allergies cyclobenzaprine [From Flexeril] Allergy (Verified 08/17/18 18:00) Other oxycodone Allergy (Verified 08/17/18 18:00) Other rosuvastatin calcium [From Crestor] Allergy (Verified 08/17/18 18:00) Unknown Patient stated that she does not remember, it has been so long ago. Penicillins Adverse Reaction (Verified 08/17/18 18:00) Unknown GETS YEAST INFECTION prednisone Adverse Reaction (Verified 08/17/18 18:00) Other SENDS BLOOD SUGARS HIGH simvastatin Adverse Reaction (Verified 08/17/18 18:00) Unknown FEELS FUNNY Home Medications: Ambulatory Orders Medication Instructions Recorded Amiodarone HCl [Cordarone] 200 mg PO DAILY 02/14/17 Aspirin [Aspirin, Baby] 81 mg PO DAILY@0800 02/14/17 Benzonatate [Tessalon Perle] 100 mg PO PRN PRN 02/14/17 Bisacodyl [Dulcolax] 10 mg RECTAL PRN PRN 02/14/17 Calcium Acetate 667 mg PO TIDCM 02/14/17 Dextrose [Glucose Gel] 38 gm PO PRN PRN 02/14/17 Glucagon,Human Recombinant 1 mg IJ PRN PRN 02/14/17 [Glucagon Emergency Kit] Insulin Lispro [Humalog] 4 unit SQ TIDCM 02/14/17 Magnesium Hydroxide [Milk Of 30 ml PO DAILY PRN PRN 02/14/17 Magnesia] Meloxicam [Mobic] 7.5 mg PO DAILY 02/14/17 Montelukast [Singulair] 10 mg PO QHS 02/14/17 Na Phos,M-B/Na Phos,Di-Ba [Fleet 1 bottle RECTAL PRN PRN 02/14/17 Enema] Sertraline HCl [Zoloft] 50 mg PO DAILY 02/14/17 Cholecalciferol (Vitamin D3) 2,000 unit PO DAILY 08/02/18 [Vitamin D3] Fluticasone 110 Mcg [Flovent 110 1 puff INHALATION BID 08/02/18 Mcg] Insulin Glargine [Lantus SoloStar 12 units SC QHS 08/02/18 Pen] Insulin Lispro [Humalog] See Protocol SQ ACHS 08/02/18 Lactobacillus Rhamnosus GG 1 mg PO DAILY 08/02/18 [Culturelle] Levothyroxine [Synthroid] 25 mcg PO DAILY 08/02/18 Mag Hydrox/Aluminum Hyd/Simeth 30 ml PO Q4H PRN PRN 08/02/18 [Antacid Suspension] Midodrine HCl 10 mg PO TID 08/02/18 Omeprazole 20 mg PO DAILY 08/02/18 Polyethylene Glycol 3350 [Miralax] 17 gm PO QHS 08/02/18 Pramipexole Di-HCl [Mirapex] 0.5 mg PO DAILY 08/02/18 Pramipexole Di-HCl [Mirapex] 1 mg PO QHS 08/02/18 traMADol [Ultram] 50 mg PO Q8H PRN PRN 08/02/18 Acetaminophen [Tylenol] 1,000 mg PO Q8 tablet 08/06/18 Glucerna Shake 120 ml PO 4X/DAY liquid 08/06/18 Argin/Glut/Cahmb/Collag/Mv-Min 1 pack PO BID 08/17/18 [Maykel Packet] Ascorbic Acid 500 mg PO DAILY 08/17/18 Collagenase [Santyl] 1 applic TP DAILY 08/17/18 Metoprolol Tartrate 12.5 mg PO BID 08/17/18 Multivit,Stress Formula/Zinc 1 tab PO DAILY 08/17/18 [Stress Formula with Zinc Tab] Multivit,Tx with Iron,Minerals 1 tab PO DAILY 08/17/18 [Thera-M] Surgical History: Surgical History (Last Reviewed 09/09/17 @ 15:25 by Padmini Mitchell) H/O skin graft (Inactive) Z98.890 07/[address] 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 Lives: [facility] Smoking Status: Former smoker Tobacco Use: Non-smoker Alcohol: None Drugs: None - *Family History Maternal Family History: Family History (Last Reviewed 09/09/17 @ 15:25 by Padmini Mitchell) Mother Diabetes Hypertension Grandmother Myocardial infarction Grandfather Hypertension Father Hypertension History Items: Diabetes, Hypertension Paternal Family History: Family History (Last Reviewed 09/09/17 @ 15:25 by Padmini Mitchell) Mother Diabetes Hypertension Grandmother Myocardial infarction Grandfather Hypertension Father Hypertension History Items: Hypertension Sibling Family History: Family History (Last Reviewed 09/09/17 @ 15:25 by Padmini Mitchell) Mother Diabetes Hypertension Grandmother Myocardial infarction Grandfather Hypertension Father Hypertension History Items: No pertinent history Review of Systems Constitutional: Reports: Anorexia, Fever, Malaise, Weakness, Fatigue. Denies: Chills, Weight Change HEENT: Denies: Head Aches, Sinus Congestion, Sinus Drainage Cardiovascular: Denies: Chest Pain, Palpitations Respiratory: Reports: Shortness of Breath, Shortness of breath at rest, Shortness of breath upon exertion. Denies: Cough, Sputum production, Wheezing Gastrointestinal: Denies: Abdominal Pain, Nausea, Vomiting Genitourinary: Denies: Dysuria Musculoskeletal: Reports: Joint Pain. Denies: Joint Tenderness Skin: Reports: Skin Changes, Wounds. Denies: Rash Neurological: Denies: Numbness, Tingling, Focal weakness Psychiatric: Reports: Anxiety, Depression. Denies: Homicidal Ideations, Suicidal Ideations Hematologic/ Lymphatic: Reports: Anemia. Denies: Easy Bruising, Easy Bleeding VTE Information - Inpt Only VTE Present on Admission: No VTE Mechan Device Prophylaxis: SCD's VTE Pharm Prophylaxis ordered?: Yes Subjective: Seated upright in the ED bed, fatigued appearance, notes pain w/ rotating in the bed, discomfort w/ evaluation of primarily L hip. Objective: Physical Examination: General: awake, alert, oriented x 3 and cooperative, seated upright in the ED bed in no apparent distress although uncomfortable with rolling. Skin: normal color, turgor, no icterus, cyanosis except noted intertrigo improved from prior examination, increased erythema to the left hip stage II decubitus ulcer region with foul-smelling dressing removed, right hip with foul- smelling dressing however no marked erythema noted, bilateral tenderness. HEENT: AT/NC, EOMI, PERRLA, mildly dry MM, no carotid bruits or JVD noted; however habitus makes examination difficult. Lungs: Diminished breath sounds bilaterally, greater bilateral bases, poor effort, no rales, ronchi or wheezing. Heart: Irregular; no gallop, rub audible. Abdomen: soft, obese, NTTP, ND, normal BS, unable to discern HSM secondary to habitus. Extremities: no cyanosis, clubbing, BL LE chronic venous skin changes, edema. Neurological: patient awake, alert, oriented x 3; cognitive function intact; pupils equally reactive to light and accomodation; cranial nerves II-XII grossly normal, moving all 4 extremities although limited, wheelchair and bedbound chronically, strength severely globally decreased. Psychiatric: affect appears fatigued, no acute evidence of depressive or anxiety feelings. - Physical Exam Vital Signs Temp Pulse Resp BP Pulse Ox 98.7 F 98 18 108/66 98 08/17/18 19:35 08/17/18 19:35 08/17/18 19:35 08/17/18 19:35 08/17/18 19:35 Oxygen Flow Rate (L/min) 4 Oxygen Delivery Method Room Air Weight: 335 lb 1.642 oz Body Mass Index (BMI) 61.2 Finger Stick Blood Glucose 112 Laboratory Tests Past 24 Hrs 08/17/18 08/17/18 08/17/18 18:30 18:30 18:30 WBC 18.5 H RBC 3.52 L Hgb 10.3 L Hct 34.4 L MCV 97.7 MCH 29.3 MCHC 29.9 L RDW 16.9 H RDW Differential 59.2 H Plt Count 240 MPV 9.7 Immature Gran % (Auto) 1.600 H Neut % (Auto) 82.5 H Lymph % (Auto) 8.6 L Worth % (Auto) 6.7 Eos % (Auto) 0.4 Baso % (Auto) 0.2 Absolute Neuts (auto) 15.3 H Absolute Lymphs (auto) 1.60 Total Counted Not Reportable D-Dimer Quant (PE/DVT) 1.29 H* Sodium 135 L Potassium 3.4 L Chloride 94 L Carbon Dioxide 32.0 Anion Gap 9 BUN 44 H Creatinine 3.34 H Estim Creat Clear Calc 13.28 Est GFR (MDRD) Af Amer 18 L Est GFR (MDRD) Non-Af 15 L BUN/Creatinine Ratio 13.2 Glucose 51 L Calcium 9.4 Troponin I < 0.015 POC Glucose 08/17/18 08/17/18 19:39 18:20 POC Glucose 112 H 53 L Assessment/Plan All Active Problems (Last Reviewed 09/09/17 @ 15:25 by Padmini Mitchell) Cellulitis of left hip (Acute) ESR raised (Acute) Clostridium difficile enterocolitis (Resolved) C. difficile colitis (Resolved) Hyperkalemia (Resolved) MRSA (methicillin resistant Staphylococcus aureus) infection (Resolved) Pseudomonas aeruginosa infection (Resolved) infected ischial tuberosity ulcer (Resolved) The patient is a 63 y/o F w/ PMHx: Morbid Obesity, AOCD, ESRD on HD (HD M/W/F, last Thursday) following w/ Dr. Limon, Chronic wheelchair and bedbound, CAD, Chronic AF, HTN, HLD, Diabetes mellitus type II, GRAEME non-compliant with CPAP/BIPAP, Chronic COPD, Chronic Pain Syndrome who presents to the [facility] ED on 08/17/17, recently discharged on 08/06/18 following treatment of BL hip stage II decubitous ulcers w/ cellulitis ruled out w/ elevated ESR and CRP of unclear significance who now re-presents to the [facility] ED on 08/17/18 with increased fatigue, weakness, malaise in addition to worsened primarily left hip wound redness, discharge, discomfort with patient subjective fever in addition to dyspnea complaints although she notes she has been less active, laying more with no market weight gain or worsened edema from baseline. (1) BL Hip Stage II Decubitous Ulcers with Suspected Acute L Sided Cellulitis, Infection: Admission CBC w/ WBC 18.5 with L shift, mildly tachycardic, left hip chronic wound w/ worsened erythema, foul smelling dressing. Will admit to PCU as pending ED initiated CTPA as elevated d-dimer, maintain on IV zosyn and vanc pending MRSA assessment, will de-escalate if negative, will obtain Wound Cx, will obtain Wound MRSA PCR, plan repeat CBC in AM, continue affected extremity elevation as much as able given location, wound RN consultation, Dr. Allan consultation requested, monitor erythema outline with VS checks. (2) Dyspnea, Multifactorial: Suspected secondary to hypoventilation syndrome, chronic COPD, GRAEME non-compliant with CPAP, CXR without marked congestion, appears stable, CTPA pending per ED given elevated D-dimer, will await result, plan HD in AM given this intervention, gentle IVFs to be continued. (3) Diabetes mellitus type II w/ Hypoglycemia: Hold oral home regimen, continue home insulin regimen, ADA diet, accu checks w/ ISS, nutrition consulted for education and teaching. BS in the ED improved w/ intervention. (4) End-stage renal disease: Patient with normal HD regimen Thursday, Thursday, Thursday, will consult Dr. Limon, will need HD per regimen and given CTPA per ED upon admission. Continue Midrin regimen. (5) Chronic Atrial Fibrillation: Continue home aspirin, amiodarone, metoprolol regimen. Not anticoagulated, suspected secondary to fall risk, CTPA pending as noted, heparin drip initiated in interim. (6) Hypertension: Continue home regimen including metoprolol, PRN hydralazine. (7) Hyperlipidemia: Statin allergy noted. (8) CAD: Continue home asa, BB, not on statin w/ allergy noted. (9) Morbid Obesity: Weight loss and lifestyle changes encouraged, nutrition c onsulted. (10) GRAEME: Noncompliant with sleep apnea CPAP/BIPAP regimen. (11) Hypothyroidism: Continue home synthroid regimen. (12) Chronic COPD: ATC duonebs, PRN albuterol, HOB, IS parameters. (13) Intertrigo: Continue nystatin powder application. (14) GERD: PPI. (15) DVT prophylaxis: SCDs, heparin drip as noted until CTPA results. (16) CODE status: Discussed CODE status at length including difference between FULL code, DNR-CCA and DNR-CC status. Following discussions about the differences in these status, requested continuation of DNR-CCA, no intubation status. Advanced Care Planning Face to Face Time: 16 minutes. Code Visit Inpatient E&M: 03143 Init Hosp L3 Procedures: 88845 Advncd Care Plan 30 Min
--- NOTE | 2018-08-17 20:11 | CT_ITS ---
STUDY: CTA CHEST REASON FOR EXAM: Female, 63 years old. Dyspnea, history of atrial fibrillation, asthma, COPD, emphysema, stage V chronic kidney disease on dialysis, hypertension, MRSA, cellulitis in both hips. RADIATION DOSAGE (If Supplied By Facility): CTDIvol = ( 27.53 ) mGy, DLP = ( 709.72 ) mGycm TECHNIQUE: The examination was performed with the intravenous administration of 100 ml of Isovue 370 contrast material. Post-processing of the angiographic images was performed, with multiplanar reformation and 3D reconstruction. There is obesity, the entirety of soft tissue is not imaged. Individualized dose optimization techniques were used for this CT. COMPARISON: CT chest 07/07/2014. Chest x-ray 08/17/2018. FINDINGS: Bilateral prominent size of thyroid lobes. Normal enhancement of the main pulmonary artery and right and left pulmonary arteries. Normal enhancement of the bilateral peripheral pulmonary arteries. There is no demonstrated pulmonary embolism. There is stable mild atherosclerotic calcification and tortuosity of the aortic arch and descending thoracic aorta. There is a bovine arch as a vascular variant. There is no demonstrated aortic dissection. There is stable cardiomegaly. There is a right subclavian approach multilead permanent pacemaker with leads in the right atrium and ventricle.. Normal mediastinum. Normal hilar regions. Normal visualized trachea and bronchi. The lungs are well expanded. Linear interstitial changes in the lung bases most consistent with scarring. Small component of atelectasis may be superimposed. Emphysematous changes bilaterally to a mild degree without change. Minor atelectasis in the right middle lobe and lingula, stable calcified granuloma in the right upper lobe and right hilum.. Normal pleura. Normal chest wall structures. There are stable degenerative changes of spine and shoulder joints. Morbid obesity, numerous splenic and hepatic granulomata, arteriosclerosis, incompletely imaged but enlarged appearing low attenuated liver, left renal cortical thinning with a small kidney. CT/CTA Chest W/WO Contrast IMPRESSION: No demonstrated pulmonary embolism, aneurysm, leak or arterial dissection. Mild emphysema, scarring in the lung bases, resolution of previous airspace disease. No pulmonary edema, congestive heart failure or confluent pneumonia. Stable cardiac enlargement, atherosclerosis, postsurgical changes, degenerative changes, obesity, hepatomegaly and hepatic steatosis suspected, remote granulomatous exposure. Electronically Signed: Taylor Delgado MD at 23:10 EST , Service support ,
--- NOTE | 2018-08-17 20:17 | ED.DCSUM_ITS ---
- ER Visit Summary Date of Service: 08/17/18 Chief Complaint: [Shortness of breath and not feeling well] History of Present Illness: The patient is a 63 F [presents the emergency department with increasing shortness of breath over the last 2 weeks. Patient states that she has been sleeping more. She denies any cough. She denies any fever. Patient is nonambulatory and presents from assisted. Patient has a history of diabetes, chronic renal failure on dialysis. Patient last dialysis was yesterday. She denies any chest pain. Patient has some chronic wounds to both hips and has had cellulitis multiple times.] Physical Examination: [HEENT-PERRLA, EOMI. Cranial nerves II through XII grossly intact. TMs clear. Mucous membranes moist. No adenopathy. Cardiovascular-regular rate and rhythm without murmur or ectopy Lungs-clear to auscultation, chest wall stable without crepitus or subcu emphysema Abdomen-normoactive bowel sounds, soft, nontender, no rebound or rigidity, no peritoneal signs. Patient is morbidly obese. Extremities-intact ?4, normal range of motion, normal pulses, atraumatic. Bilateral hips have chronic wounds that have been packed and there is surrounding erythema and warmth noted. There is some foul odor noted. Patient also has a large pannus to the abdomen that has Valery-like dermatitis associated.] Test Results: [CBC with differential obtained showed an elevated white blood cell count of 18.5, hemoglobin 10, hematocrit 34, platelets 240. Chemistries unremarkable. BUN was 44 and creatinine 3.34. Troponin was less than 0.015. EKG obtained showed atrial fibrillation with a ventricular rate of 101 bpm. Patient had some nonspecific ST changes noted. Chest x-ray showed vascular congestion and some cardiomegaly. CTA of the chest ordered and pending.] Emergency Department Course and Treatment: Patient will start on clindamycin IV. Patient was discussed with hospitalist will evaluate patient for admission] Treatment Plan: [Admit for antibiotics and patient will require dialysis after IV contrast for CTA of the chest.] Disposition: [Admit] Impression: [Cellulitis bilateral hips from chronic wounds Dyspnea Chronic renal failure] This note was generated with [employer] software. It may contain incorrect words, spelling, and punctuation that were not noted in review of the chart prior to signing ED Disposition - Plan for ED Patient: Chief Complaint: Shortness of Breath Referrals: Yusuf Fung III, MD [Primary Care Provider] -
[2018-08-17 21:35] LABS: Bedside Glucose 163 mg/dL (70-110)
[2018-08-17 21:39] LABS: Lactic Acid 1.5 mmol/L (0.4-2.0)
[2018-08-17 22:08] LABS: International Normalized Ratio 1.3; Partial Thromboplast Time 41.4 Seconds (24.1-36.2); Prothrombin Time (Protime)PT. 16.4 SECONDS (11.7-14.9)
[2018-08-18] VITALS (57 sets, daily range): BP systolic 54–131; BP diastolic 38–98; PULSE 62–149; RESP 14–29; TEMP 36.1–36.7; O2SAT 93–100
--- NOTE | 2018-08-18 | PRES_PTH ---
PATIENT: SAMIRA GONZALES LOC: [facility] U#:[id number] AGE/SX: 63/F ROOM: ICU02 RE08/17/[address]: Dr. Alfredo Robins MD : [id number] BED: 1 DIS: 08/19/2018 SPEC #: [id number] RECD: 08/19/18 12:05 STATUS: DARIEL REQ #: [id number] ALLEY: 08/18/18 00:[address]: Darinel Allan DEPT: SURGICAL PATHOLOGY RECD BY: Elieser Clemente ENTERED: 08/19/18 12:07 SP TYPE: PRESS SORE OTHR DR: MD Dr. Cb Estrada DO Dr. David Kittoe, MD Dr. Frank A Cebul III, MD Dr. Jayaprakas Dasari, MD Dr. Robert Leininger, MD Tissues: A - Hip, NOS B - Hip, NOS Procedures: Surgery Specimen Level IV Comments: @ Ordering doctor for SUIV edited from to @ matilda KAUR at 08/19/18 120 @ Submitting doctor edited from to @ matilda KAUR at 08/19/18 1200 HEADER OPERATION: Incision and drainage of necrotic pressure injury PRE-OP DIAGNOSIS: Necrotic pressure injury TISSUE SUBMITTED: A - Tissue right hip/lateral thigh, B - Tissue left hip/lateral thigh MICROSCOPIC DIAGNOSIS A. Skin and soft tissue of right lateral hip/thigh, excision: Ulceration with associated acute and chronic inflammation and granulation with microabscess formation. B. Skin and soft tissue of left lateral hip/thigh, excision: Ulceration with associated acute and chronic inflammation and granulation with microabscess formation. AM:katie 08/20/18 MICROSCOPIC DESCRIPTION Slides are reviewed. GROSS DESCRIPTION A - Received in fixative is one container labeled with the patient's name and designated tissue right hip/lateral thigh. The specimen consists of a piece of skin with underlying tissue measuring 26 x 13 cm and up to 8 cm in thickness. The skin surface shows brownish, necrotic area. Sections do not reveal any mass lesion. Also present in the container is a detached piece of adipose tissue measuring 4 x 4 x 2.5 cm. Kettle Worker sections are submitted in three cassettes. B - Received in fixative is one container labeled with the patient's name and designated tissue left hip/lateral thigh. The specimen consists of a piece of skin with underlying tissue measuring 25 x 8 cm and up to 9 cm in thickness. The skin surface shows brownish, necrotic area. Sections do not reveal any mass lesion. Also present in the container are two detached pieces of adipose tissue measuring in aggregate 12 x 6 x 5 cm. Kettle Worker sections are submitted in three cassettes. / SJ:katie 08/19/18 TC:2 CPT: 67591 x2
[2018-08-18] MEDS: Piperacil/Tazobactam 3.375 GM/50 ML ML IV ×3 (00:21→22:16)
[2018-08-18] MEDS: traMADol 50 MG Tablet PO (00:54)
[2018-08-18] MEDS: Montelukast 10 MG Tablet PO ×2 (00:56→22:12)
[2018-08-18] MEDS: Midodrine HCl 5 MG Tablet 10 MG PO ×3 (00:56→22:13)
[2018-08-18] MEDS: Metoprolol Tartrate 25 MG Tablet 12.5 MG PO (00:58)
[2018-08-18] MEDS: Pramipexole Di-HCl 1 MG Tablet PO ×2 (00:58→22:15)
[2018-08-18] MEDS: Nystatin Powder 15gm Bottle 1 APPLIC TOPICAL ×3 (01:09→22:19)
[2018-08-18 01:16] LABS: Bedside Glucose 143 mg/dL (70-110)
--- NOTE | 2018-08-18 01:26 | PCM.RX.CS ---
Consult Pharmacy has been consulted to manage selected antiobiotic: Vancomycin Type of Consult: New start Suspected Infection: Skin/Soft tissue Prior Doses of Antibiotics Received/Current Regimen: Medications Discontinued Medications Vancomycin HCl 2,000 mg/ (Sodium Chloride) 540 mls @ 250 mls/hr IV X1 ONE Stop: 08/18/18 01:09 Last Admin: 08/17/18 23:48 Dose: 250 mls/hr Labs: Sodium 135 mmol/L (136-145) L 08/17/18 18:30 Potassium 3.4 mmol/L (3.5-5.1) L 08/17/18 18:30 Chloride 94 mmol/L (98-107) L 08/17/18 18:30 Carbon Dioxide 32.0 mmol/L (21.0-32.0) 08/17/18 18:30 Anion Gap 9 (5-15) 08/17/18 18:30 BUN 44 mg/dL (7-18) H 08/17/18 18:30 Creatinine 3.34 mg/dL (0.55-1.02) H 08/17/18 18:30 Est GFR (MDRD) Af Amer 18 mL/min (>60) L 08/17/18 18:30 Est GFR (MDRD) Non-Af 15 mL/min (>60) L 08/17/18 18:30 BUN/Creatinine Ratio 13.2 RATIO (10-20) 08/17/18 18:30 Glucose 51 mg/dL (74-106) L 08/17/18 18:30 Weight used for dosin.9 kg Estimated Creatinine Clearance: 13.28 Goal Trough: 10-15 mcg/mL Pharmacy Plan for Drug Dosing: Initial 2000mg vancomycin dose given. Due to CrCl<20, continuing dosage will be determined after random vanc level to be drawn 08/19/18 am. Pharmacy Service will continue to monitor and adjust dosing as required. Follow-Up Labs: Trough Vancomycin - Random level Labs to be done on [date and time ordered]: 08/19/18 @0600
[2018-08-18] MEDS: 0.9% Normal Saline 1,000 ML 60 ML IV ×3 (02:24→22:17)
[2018-08-18 06:42] LABS: Anion Gap 12 (5-15); BUN 46 mg/dL (7-18); BUN/Creat Ratio 13.1 RATIO (10-20); Calcium,Total 8.9 mg/dL (8.5-10.1); Chloride 95 mmol/L (98-107); Creatinine, Serum 3.52 mg/dL (0.55-1.02); EST Glomerular Filtration Rate 14 mL/min (>60); Est Glom Filt Rate - Afr Amer 17 mL/min (>60); Glucose 117 mg/dL (74-106); Potassium 3.4 mmol/L (3.5-5.1); Sodium Level 134 mmol/L (136-145)
[2018-08-18] MEDS: Heparin Injection (Vial) 5,000 UNIT/ML VIAL 5000 UNIT SC ×2 (06:46→22:18)
[2018-08-18] MEDS: Levothyroxine 25 MCG TABLET PO (06:50)
--- NOTE | 2018-08-18 06:52 | NURSING ---
Pt. lethargic, BP low 56/44. Placed in trendelenberg. BP still low. [employer] called
[2018-08-18 07:05] LABS: Absolute Lymphocyte Count 1.61 X10^3/ul (0.83-4.51); Absolute Neutrophil Count 22.2 X10^3/uL (2.0-7.7); Basophil# 0.05 X10^3/uL; Basophil% 0.2 % (0-1); Eosinophil# 0.13 X10^3/uL; Eosinophils% 0.5 % (0-5); Hematocrit 30.6 % (37-47); Hemoglobin 9.1 g/dl (12.0-15.0); Lymphocyte # 1.61 X10^3/ul (4.0); Lymphocyte % 6.1 % (19-41); Mean Corp Hgb Conc 29.7 g/gl (32-36); Mean Corpuscular Hgb 29.4 pg (27.0-32.0); Mean Corpuscular Volume 98.7 fL (81-99); Mean Platelet Vol. 9.4 fl (6.2-12.0); Monocyte# 1.86 X10^3/uL; Neutrophil # 22.18 X10^3/uL (2.7-7.7); Neutrophil % 84.1 % (47-70); Platelet Count 202 K/mm3 (150-450); RBC Distribution Width SD 59.7 fl (35.1-43.9); White Blood Count 26.4 K/mm3 (4.4-11.0)
[2018-08-18 07:15] LABS: Bedside Glucose 133 mg/dL (70-110)
[2018-08-18 07:19] LABS: Differential Indicated SCAN CRITERIA MET; POSITIVE COUNT YES; POSITIVE DIFFERENTIAL YES; POSITIVE MORPHOLOGY YES
[2018-08-18] MEDS: Ipratropium/Albuterol Sulfate 3 ML AMPUL.NEB INHALATION (07:20)
[2018-08-18 07:27] LABS: Hypochromasia 1+
--- NOTE | 2018-08-18 08:49 | NURSING ---
Report called to [facility] at this time patient to be transferred
--- NOTE | 2018-08-18 09:00 | NURSING ---
Attempted to call and Step mother - left a voicemail at this time in regards to patients transfer and requested a phone call back.
--- NOTE | 2018-08-18 09:38 | PCM.CONS.R ---
Problem List (1) ESRD (end stage renal disease) on dialysis Status: Chronic Consultation - Renal PCP/ Referring MD: Requesting physician: [] Primary care physician: Yusuf Fung III, - History of Present Illness History of Present Illness: The patient is a 63 year old F past medical history of end-stage renal disease on Thursday schedule of dialysis , morbid obesity , diabetes , chronic hypotension on midodrine. [facility]. Patient presented yesterday to the hospital for progressive shortness of breath for 2 weeks. She was admitted recently to the hospital for bilateral hips pain from decubitus ulcers. CAT scan of the chest was done yesterday which was negative for PE or fluid overload. Patient's blood pressure dropped this morning to around 65/40. Patient was then transferred to the ICU. Patient has elevated white cell count. Currently on Levophed. She is being treated for septic shock with wide spectrum antibiotics. Renal team was consulted for end-stage renal disease care. Last hemodialysis was Thursday as per the patient. Patient has left upper extremity AV fistula. Patient is awake alert oriented. Complaining of pain in both hips. Review of system: 12 systems review is negative except for what mentioned in HPI [] - Allergies Allergies: Allergies cyclobenzaprine [From Flexeril] Allergy (Verified 08/17/18 18:00) Other oxycodone Allergy (Verified 08/17/18 18:00) Other rosuvastatin calcium [From Crestor] Allergy (Verified 08/17/18 18:00) Unknown Patient stated that she does not remember, it has been so long ago. Penicillins Adverse Reaction (Verified 08/17/18 18:00) Unknown GETS YEAST INFECTION prednisone Adverse Reaction (Verified 08/17/18 18:00) Other SENDS BLOOD SUGARS HIGH simvastatin Adverse Reaction (Verified 08/17/18 18:00) Unknown FEELS FUNNY - Current Medications Current Medications: Current Medications Acetaminophen (Tylenol) 650 mg PO Q6H PRN PRN PRN Reason: Non-cardiac pain (mod-severe) Acetaminophen (Tylenol) 1,000 mg PO Q8 BHAVNA Last Admin: 08/18/18 06:50 Dose: Not Given Al Hydroxide/Mg Hydroxide (Mylanta Ii) 30 ml PO Q4H PRN PRN PRN Reason: Gi DISTRESS Albuterol Sulfate (Ventolin Aerosols) 2.5 mg INHALATION Q2H PRN PRN PRN Reason: dyspnea, wheezing Albuterol/Ipratropium (Duoneb) 3 ml INHALATION Q4HWA.RT [facility] Last Admin: 08/18/18 07:20 Dose: 3 ml Amiodarone HCl (Cordarone) 200 mg PO DAILY [facility] Aspirin (Aspirin, Baby) 81 mg PO DAILY@0800 [facility] Bisacodyl (Dulcolax) 10 mg RECTAL DAILY PRN PRN PRN Reason: Constipation Calcium Acetate (Phoslo Gel Cap) 667 mg PO TIDCM [facility] Collagenase (Santyl) 1 applic TOPICAL DAILY [facility]; Protocol Dextrose (D50w Syringe) 0 gm IV X1 PRN; Protocol PRN Reason: Hypoglycemia Glucagon () 1 mg IM .X1 PRN PRN Reason: Hypoglycemia Heparin Sodium (Porcine) (Heparin Na) 5,000 unit SC Q8 [facility] Last Admin: 08/18/18 06:46 Dose: 5,000 unit Hydralazine HCl (Apresoline Iv) 10 mg IV Q4H PRN PRN PRN Reason: SBP > 160 Sodium Chloride () 1,000 mls @ 60 mls/hr IV .[id number] [facility] Last Admin: 08/18/18 02:24 Dose: 60 mls/hr Piperacillin Sod/Tazobactam Sod (Zosyn) 3.375 gm in 50 mls @ 12.5 mls/hr IV Q12 [facility] Last Admin: 08/18/18 00:21 Dose: 12.5 mls/hr Vancomycin IV Pharmacy to Dose (1 ea/ Sodium Chloride) 500 mls @ 250 mls/hr IV PRN PRN; Protocol PRN Reason: Rx to Dose Norepinephrine Bitartrate 8 mg (/ Dextrose) 258 mls @ 9.68 mls/hr IV .[id number] [facility] Last Admin: 08/18/18 09:15 Dose: 9.68 mls/hr Insulin Glargine (Lantus (Bkc)) 12 units SC QHS [facility] Last Admin: 08/18/18 01:08 Dose: 12 units Insulin Human Lispro (Humalog Kwikpen (Bkc)) 0 unit SC ACHS [facility]; Protocol Last Admin: 08/18/18 08:24 Dose: Not Given Insulin Human Lispro (Humalog Kwikpen (Bkc)) 4 unit SC TIDAC [facility] Last Admin: 08/18/18 08:24 Dose: Not Given Levothyroxine Sodium (Synthroid) 25 mcg PO DAILY@0600 [facility] Last Admin: 08/18/18 06:50 Dose: 25 mcg Magnesium Hydroxide (Milk Of Magnesia) 30 ml PO DAILY PRN PRN Reason: Constipation Midodrine (Proamatine) 10 mg PO TID [facility] Last Admin: 08/18/18 06:44 Dose: 10 mg Montelukast Sodium (Singulair) 10 mg PO QHS [facility] Last Admin: 08/18/18 00:56 Dose: 10 mg Nutritional Formula ([place] - [place] Flavor) 1 packet PO BID [facility] Last Admin: 08/18/18 00:28 Dose: Not Given Nutritional Formula (Lactose Free) (Glucerna Shake) 120 ml PO 4X/DAY [facility] Last Admin: 08/18/18 00:27 Dose: Not Given Nystatin (Mycostatin Powder) 1 applic TOPICAL TID [facility]; Protocol Last Admin: 08/18/18 06:47 Dose: 1 applicatio Ondansetron HCl (Zofran) 4 mg IV Q8H PRN PRN PRN Reason: NAUSEA Pantoprazole Sodium (Protonix) 20 mg PO DAILY [facility] Polyethylene Glycol (Miralax) 17 gm PO QHS [facility] Last Admin: 08/18/18 00:29 Dose: Not Given Pramipexole Dihydrochloride (Mirapex) 1 mg PO QHS [facility] Last Admin: 08/18/18 00:58 Dose: 1 mg Pramipexole Dihydrochloride (Mirapex) 0.5 mg PO DAILY [facility] Sertraline HCl (Zoloft) 50 mg PO DAILY [facility] Sodium Chloride () 5 - 15 ml IV UD PRN PRN Reason: SALINE FLUSH Tramadol HCl (Ultram) 50 mg PO Q8H PRN PRN PRN Reason: PAIN Last Admin: 08/18/18 00:54 Dose: 50 mg - Past Medical History Past Medical History (Chronic Problems): Chronic Problems (Last Reviewed 09/09/17 @ 15:25 by Padmini Mitchell) Chronic obstructive pulmonary disease (COPD) (Chronic) GRAEME (obstructive sleep apnea) (Chronic) non-compliant with CPAP Diabetes mellitus, type II (Chronic) Decubitus ulcer of left hip, stage 2 (Chronic) Decubitus ulcer of right hip, stage 2 (Chronic) Super obesity (Chronic) Anemia in chronic kidney disease (Chronic) Excessive dietary caloric intake (Chronic) Paroxysmal atrial fibrillation (Chronic) Cardiac pacemaker in situ (Chronic ~02/23/14) Hypertension (Chronic) Carotid bruit (Chronic) Tachycardia-bradycardia syndrome (Chronic) History of depression (Chronic) HLD (hyperlipidemia) (Chronic) Biatrial enlargement (Chronic) Pulmonary HTN (Chronic) ESRD (end stage renal disease) on dialysis (Chronic) Contusion of right lower leg (Chronic) Resulting in a nonhealing wound Right lower leg eschar (Chronic) Decubitus ulcer of ankle, stage 2 (Chronic) infected ischial tuberosity ulcer (Chronic) - Past Surgical History Surgical History: cataract, cholecystectomy, tonsillectomy, - - Placement of fistula and left upper arm placement of pacemaker, carpal tunnel surgery - Social History Smoking Status: Former smoker Alcohol: None Drugs: None - Family History Maternal Family History: Family History (Last Reviewed 09/09/17 @ 15:25 by Padmini Mitchell) Mother Diabetes Hypertension Grandmother Myocardial infarction Grandfather Hypertension Father Hypertension History Items: Diabetes, Hypertension Paternal Family History: Family History (Last Reviewed 09/09/17 @ 15:25 by Padmini Mitchell) Mother Diabetes Hypertension Grandmother Myocardial infarction Grandfather Hypertension Father Hypertension History Items: Hypertension Sibling Family History: Family History (Last Reviewed 09/09/17 @ 15:25 by Padmini Mitchell) Mother Diabetes Hypertension Grandmother Myocardial infarction Grandfather Hypertension Father Hypertension History Items: No pertinent history - Physical Exam General: Alert, Oriented x3 HEENT: Atraumatic Oral: Dry Mucosa Neck: Supple, No JVD Lungs: Clear to auscultation, Normal air movement, No rhonchi, No wheeze Cardiovascular: Regular rate, Irregular Rate Abdomen: Bowel Sounds Present, Soft, Non Tender, Non-Distended Extremities: Edema - bilateral lower extremities chronic static edema Musculoskeletal: Tenderness - Over both lower extremities Lymphatic: No Cervical, Supraclavicular, or Inguinal Adenopathy Neurological: Cranial nerves II-XII grossly intact, Neuro grossly intact Psych/Mental Status: Appropriate Vital Signs Temp Pulse Resp BP Pulse Ox 96.9 F L 109 H 20 H 111/98 H 94 08/18/18 08:40 08/18/18 09:24 08/18/18 09:24 08/18/18 09:24 08/18/18 09:24 Oxygen Flow Rate (L/min) 5 Oxygen Delivery Method Nasal Cannula Weight: 147.9 kg Body Mass Index (BMI) 59.6 Finger Stick Blood Glucose 112 Intake and Output for Last 24 Hours 08/16/18 08/17/18 08/18/18 23:59 23:59 23:59 Intake Total 150 / 150 Output Total 0 / 0 Balance 150 / 150 Laboratory Tests Past 24 Hrs 08/17/18 08/17/18 08/17/18 18:30 18:30 18:30 WBC 18.5 H RBC 3.52 L Hgb 10.3 L Hct 34.4 L MCV 97.7 MCH 29.3 MCHC 29.9 L RDW 16.9 H RDW Differential 59.2 H Plt Count 240 MPV 9.7 Immature Gran % (Auto) 1.600 H Neut % (Auto) 82.5 H Lymph % (Auto) 8.6 L [place] % (Auto) 6.7 Eos % (Auto) 0.4 Baso % (Auto) 0.2 Absolute Neuts (auto) 15.3 H Absolute Lymphs (auto) 1.60 Total Counted Not Reportable Diff Path Review Hypochromasia PT INR APTT D-Dimer Quant (PE/DVT) 1.29 H* Sodium 135 L Potassium 3.4 L Chloride 94 L Carbon Dioxide 32.0 Anion Gap 9 BUN 44 H Creatinine 3.34 H Estim Creat Clear Calc 13.28 Est GFR (MDRD) Af Amer 18 L Est GFR (MDRD) Non-Af 15 L BUN/Creatinine Ratio 13.2 Glucose 51 L Lactic Acid Calcium 9.4 Magnesium Troponin I < 0.015 08/17/18 08/17/18 08/17/18 18:30 18:30 21:05 WBC RBC Hgb Hct MCV MCH MCHC RDW RDW Differential Plt Count MPV Immature Gran % (Auto) Neut % (Auto) Lymph % (Auto) [place] % (Auto) Eos % (Auto) Baso % (Auto) Absolute Neuts (auto) Absolute Lymphs (auto) Total Counted Diff Path Review Hypochromasia PT 16.4 H INR 1.3 APTT 41.4 H D-Dimer Quant (PE/DVT) Sodium Potassium Chloride Carbon Dioxide Anion Gap BUN Creatinine Estim Creat Clear Calc Est GFR (MDRD) Af Amer Est GFR (MDRD) Non-Af BUN/Creatinine Ratio Glucose Lactic Acid 1.5 Calcium Magnesium 2.0 Troponin I 08/18/18 08/18/18 06:05 06:05 WBC 26.4 H RBC 3.10 L Hgb 9.1 L Hct 30.6 L MCV 98.7 MCH 29.4 MCHC 29.7 L RDW 17.0 H RDW Differential 59.7 H Plt Count 202 MPV 9.4 Immature Gran % (Auto) 2.100 H Neut % (Auto) 84.1 H Lymph % (Auto) 6.1 L [place] % (Auto) 7.0 Eos % (Auto) 0.5 Baso % (Auto) 0.2 Absolute Neuts (auto) 22.2 H Absolute Lymphs (auto) 1.61 Total Counted Not Reportable Diff Path Review May foll Hypochromasia 1+ PT INR APTT D-Dimer Quant (PE/DVT) Sodium 134 L Potassium 3.4 L Chloride 95 L Carbon Dioxide 27.0 Anion Gap 12 BUN 46 H Creatinine 3.52 H Estim Creat Clear Calc 12.60 Est GFR (MDRD) Af Amer 17 L Est GFR (MDRD) Non-Af 14 L BUN/Creatinine Ratio 13.1 Glucose 117 H Lactic Acid Calcium 8.9 Magnesium Troponin I POC Glucose 08/18/18 08/18/18 08/17/18 06:26 01:04 21:30 POC Glucose 133 H 143 H 163 H 08/17/18 08/17/18 19:39 18:20 POC Glucose 112 H 53 L Assessment/Plan All Active Problems (Last Reviewed 09/09/17 @ 15:25 by Padmini Mitchell) Cellulitis of left hip (Acute) ESR raised (Acute) Clostridium difficile enterocolitis (Resolved) C. difficile colitis (Resolved) Hyperkalemia (Resolved) MRSA (methicillin resistant Staphylococcus aureus) infection (Resolved) Pseudomonas aeruginosa infection (Resolved) infected ischial tuberosity ulcer (Resolved) 1-end-stage renal disease patient. Patient is on hemodialysis Thursday schedule. Patient goes to [facility]. Last hemodialysis was Thursday. I will arrange for hemodialysis session today with the same chronic order. No ultrafiltration due to hemodynamic instability. Hemodialysis access is left upper extremity AV fistula which is positive for thrill 2-anemia: Hemoglobin 9.1. We will continue same chronic VISHAL order. RBCs transfusion when hemoglobin less than 7 as per ICU protocol. 3-BMD. Patient on calcium acetate 667 mg 3 times a day with meals We will monitor phosphorus level. 4-septic shock. Hemodynamic support/Abx as per the ICU team Dose antibiotics for patient on hemodialysis. Thank you for the consult. Renal team will continue to follow
--- NOTE | 2018-08-18 09:42 | CON.PCM_ITS ---
Problem List (1) ESRD (end stage renal disease) on dialysis Status: Chronic Consultation - Renal PCP/ Referring MD: Requesting physician: [] Primary care physician: Yusuf Fung III, - History of Present Illness History of Present Illness: The patient is a 63 year old F past medical history of end-stage renal disease on Thursday schedule of dialysis , morbid obesity , diabetes , chronic hypotension on midodrine. She is staying in a [facility]. Patient presented yesterday to the hospital for progressive shortness of breath for 2 weeks. She was admitted recently to the hospital for bilateral hips pain from decubitus ulcers. CAT scan of the chest was done yesterday which was negative for PE or fluid overload. Patient's blood pressure dropped this morning to around 65/40. Patient was then transferred to the ICU. Patient has elevated white cell count. Currently on Levophed. She is being treated for septic shock with wide spectrum antibiotics. Renal team was consulted for end-stage renal disease care. Last hemodialysis was Thursday as per the patient. Patient has left upper extremity AV fistula. Patient is awake alert oriented. Complaining of pain in both hips. Review of system: 12 systems review is negative except for what mentioned in HPI [] - Allergies Allergies: Allergies cyclobenzaprine [From Flexeril] Allergy (Verified 08/17/18 18:00) Other oxycodone Allergy (Verified 08/17/18 18:00) Other rosuvastatin calcium [From Crestor] Allergy (Verified 08/17/18 18:00) Unknown Patient stated that she does not remember, it has been so long ago. Penicillins Adverse Reaction (Verified 08/17/18 18:00) Unknown GETS YEAST INFECTION prednisone Adverse Reaction (Verified 08/17/18 18:00) Other SENDS BLOOD SUGARS HIGH simvastatin Adverse Reaction (Verified 08/17/18 18:00) Unknown FEELS FUNNY - Current Medications Current Medications: Current Medications Acetaminophen (Tylenol) 650 mg PO Q6H PRN PRN PRN Reason: Non-cardiac pain (mod-severe) Acetaminophen (Tylenol) 1,000 mg PO Q8 [facility]AVNA Last Admin: 08/18/18 06:50 Dose: Not Given Al Hydroxide/Mg Hydroxide (Mylanta Ii) 30 ml PO Q4H PRN PRN PRN Reason: Gi DISTRESS Albuterol Sulfate (Ventolin Aerosols) 2.5 mg INHALATION Q2H PRN PRN PRN Reason: dyspnea, wheezing Albuterol/Ipratropium (Duoneb) 3 ml INHALATION Q4HWA.RT [facility] Last Admin: 08/18/18 07:20 Dose: 3 ml Amiodarone HCl (Cordarone) 200 mg PO DAILY [facility] Aspirin (Aspirin, Baby) 81 mg PO DAILY@0800 [facility] Bisacodyl (Dulcolax) 10 mg RECTAL DAILY PRN PRN PRN Reason: Constipation Calcium Acetate (Phoslo Gel Cap) 667 mg PO TIDCM [facility] Collagenase (Santyl) 1 applic TOPICAL DAILY [facility]; Protocol Dextrose (D50w Syringe) 0 gm IV X1 PRN; Protocol PRN Reason: Hypoglycemia Glucagon () 1 mg IM .X1 PRN PRN Reason: Hypoglycemia Heparin Sodium (Porcine) (Heparin Na) 5,000 unit SC Q8 [facility] Last Admin: 08/18/18 06:46 Dose: 5,000 unit Hydralazine HCl (Apresoline Iv) 10 mg IV Q4H PRN PRN PRN Reason: SBP > 160 Sodium Chloride () 1,000 mls @ 60 mls/hr IV .[id number] [facility] Last Admin: 08/18/18 02:24 Dose: 60 mls/hr Piperacillin Sod/Tazobactam Sod (Zosyn) 3.375 gm in 50 mls @ 12.5 mls/hr IV Q12 [facility] Last Admin: 08/18/18 00:21 Dose: 12.5 mls/hr Vancomycin IV Pharmacy to Dose (1 ea/ Sodium Chloride) 500 mls @ 250 mls/hr IV PRN PRN; Protocol PRN Reason: Rx to Dose Norepinephrine Bitartrate 8 mg (/ Dextrose) 258 mls @ 9.68 mls/hr IV .[id number] [facility] Last Admin: 08/18/18 09:15 Dose: 9.68 mls/hr Insulin Glargine (Lantus (Bkc)) 12 units SC QHS [facility] Last Admin: 08/18/18 01:08 Dose: 12 units Insulin Human Lispro (Humalog Kwikpen (Bkc)) 0 unit SC ACHS [facility]; Protocol Last Admin: 08/18/18 08:24 Dose: Not Given Insulin Human Lispro (Humalog Kwikpen (Bkc)) 4 unit SC TIDAC [facility] Last Admin: 08/18/18 08:24 Dose: Not Given Levothyroxine Sodium (Synthroid) 25 mcg PO DAILY@0600 [facility] Last Admin: 08/18/18 06:50 Dose: 25 mcg Magnesium Hydroxide (Milk Of Magnesia) 30 ml PO DAILY PRN PRN Reason: Constipation Midodrine (Proamatine) 10 mg PO TID [facility] Last Admin: 08/18/18 06:44 Dose: 10 mg Montelukast Sodium (Singulair) 10 mg PO QHS [facility] Last Admin: 08/18/18 00:56 Dose: 10 mg Nutritional Formula (Maykel - Geary Flavor) 1 packet PO BID [facility] Last Admin: 08/18/18 00:28 Dose: Not Given Nutritional Formula (Lactose Free) (Glucerna Shake) 120 ml PO 4X/DAY [facility] Last Admin: 08/18/18 00:27 Dose: Not Given Nystatin (Mycostatin Powder) 1 applic TOPICAL TID [facility]; Protocol Last Admin: 08/18/18 06:47 Dose: 1 applicatio Ondansetron HCl (Zofran) 4 mg IV Q8H PRN PRN PRN Reason: NAUSEA Pantoprazole Sodium (Protonix) 20 mg PO DAILY [facility] Polyethylene Glycol (Miralax) 17 gm PO QHS [facility] Last Admin: 08/18/18 00:29 Dose: Not Given Pramipexole Dihydrochloride (Mirapex) 1 mg PO QHS [facility] Last Admin: 08/18/18 00:58 Dose: 1 mg Pramipexole Dihydrochloride (Mirapex) 0.5 mg PO DAILY [facility] Sertraline HCl (Zoloft) 50 mg PO DAILY [facility] Sodium Chloride () 5 - 15 ml IV UD PRN PRN Reason: SALINE FLUSH Tramadol HCl (Ultram) 50 mg PO Q8H PRN PRN PRN Reason: PAIN Last Admin: 08/18/18 00:54 Dose: 50 mg - Past Medical History Past Medical History (Chronic Problems): Chronic Problems (Last Reviewed 09/09/17 @ 15:25 by Padmini Mitchell) Chronic obstructive pulmonary disease (COPD) (Chronic) GRAEME (obstructive sleep apnea) (Chronic) non-compliant with CPAP Diabetes mellitus, type II (Chronic) Decubitus ulcer of left hip, stage 2 (Chronic) Decubitus ulcer of right hip, stage 2 (Chronic) Super obesity (Chronic) Anemia in chronic kidney disease (Chronic) Excessive dietary caloric intake (Chronic) Paroxysmal atrial fibrillation (Chronic) Cardiac pacemaker in situ (Chronic ~02/23/14) Hypertension (Chronic) Carotid bruit (Chronic) Tachycardia-bradycardia syndrome (Chronic) History of depression (Chronic) HLD (hyperlipidemia) (Chronic) Biatrial enlargement (Chronic) Pulmonary HTN (Chronic) ESRD (end stage renal disease) on dialysis (Chronic) Contusion of right lower leg (Chronic) Resulting in a nonhealing wound Right lower leg eschar (Chronic) Decubitus ulcer of ankle, stage 2 (Chronic) infected ischial tuberosity ulcer (Chronic) - Past Surgical History Surgical History: cataract, cholecystectomy, tonsillectomy, - - Placement of fis jennifer and left upper arm placement of pacemaker, carpal tunnel surgery - Social History Smoking Status: Former smoker Alcohol: None Drugs: None - Family History Maternal Family History: Family History (Last Reviewed 09/09/17 @ 15:25 by Padmini Mitchell) Mother Diabetes Hypertension Grandmother Myocardial infarction Grandfather Hypertension Father Hypertension History Items: Diabetes, Hypertension Paternal Family History: Family History (Last Reviewed 09/09/17 @ 15:25 by Padmini Mitchell) Mother Diabetes Hypertension Grandmother Myocardial infarction Grandfather Hypertension Father Hypertension History Items: Hypertension Sibling Family History: Family History (Last Reviewed 09/09/17 @ 15:25 by Padmini Mitchell) Mother Diabetes Hypertension Grandmother Myocardial infarction Grandfather Hypertension Father Hypertension History Items: No pertinent history - Physical Exam General: Alert, Oriented x3 HEENT: Atraumatic Oral: Dry Mucosa Neck: Supple, No JVD Lungs: Clear to auscultation, Normal air movement, No rhonchi, No wheeze Cardiovascular: Regular rate, Irregular Rate Abdomen: Bowel Sounds Present, Soft, Non Tender, Non-Distended Extremities: Edema - bilateral lower extremities chronic static edema Musculoskeletal: Tenderness - Over both lower extremities Lymphatic: No Cervical, Supraclavicular, or Inguinal Adenopathy Neurological: Cranial nerves II-XII grossly intact, Neuro grossly intact Psych/Mental Status: Appropriate Vital Signs Temp Pulse Resp BP Pulse Ox 96.9 F L 109 H 20 H 111/98 H 94 08/18/18 08:40 08/18/18 09:24 08/18/18 09:24 08/18/18 09:24 08/18/18 09:24 Oxygen Flow Rate (L/min) 5 Oxygen Delivery Method Nasal Cannula Weight: 147.9 kg Body Mass Index (BMI) 59.6 Finger Stick Blood Glucose 112 Intake and Output for Last 24 Hours 08/16/18 08/17/18 08/18/18 23:59 23:59 23:59 Intake Total 150 / 150 Output Total 0 / 0 Balance 150 / 150 Laboratory Tests Past 24 Hrs 08/17/18 08/17/18 08/17/18 18:30 18:30 18:30 WBC 18.5 H RBC 3.52 L Hgb 10.3 L Hct 34.4 L MCV 97.7 MCH 29.3 MCHC 29.9 L RDW 16.9 H RDW Differential 59.2 H Plt Count 240 MPV 9.7 Immature Gran % (Auto) 1.600 H Neut % (Auto) 82.5 H Lymph % (Auto) 8.6 L Sp[place] % (Auto) 6.7 Eos % (Auto) 0.4 Baso % (Auto) 0.2 Absolute Neuts (auto) 15.3 H Absolute Lymphs (auto) 1.60 Total Counted Not Reportable Diff Path Review Hypochromasia PT INR APTT D-Dimer Quant (PE/DVT) 1.29 H* Sodium 135 L Potassium 3.4 L Chloride 94 L Carbon Dioxide 32.0 Anion Gap 9 BUN 44 H Creatinine 3.34 H Estim Creat Clear Calc 13.28 Est GFR (MDRD) Af Amer 18 L Est GFR (MDRD) Non-Af 15 L BUN/Creatinine Ratio 13.2 Glucose 51 L Lactic Acid Calcium 9.4 Magnesium Troponin I < 0.015 08/17/18 08/17/18 08/17/18 18:30 18:30 21:05 WBC RBC Hgb Hct MCV MCH MCHC RDW RDW Differential Plt Count MPV Immature Gran % (Auto) Neut % (Auto) Lymph % (Auto) Spalding % (Auto) Eos % (Auto) Baso % (Auto) Absolute Neuts (auto) Absolute Lymphs (auto) Total Counted Diff Path Review Hypochromasia PT 16.4 H INR 1.3 APTT 41.4 H D-Dimer Quant (PE/DVT) Sodium Potassium Chloride Carbon Dioxide Anion Gap BUN Creatinine Estim Creat Clear Calc Est GFR (MDRD) Af Amer Est GFR (MDRD) Non-Af BUN/Creatinine Ratio Glucose Lactic Acid 1.5 Calcium Magnesium 2.0 Troponin I 08/18/18 08/18/18 06:05 06:05 WBC 26.4 H RBC 3.10 L Hgb 9.1 L Hct 30.6 L MCV 98.7 MCH 29.4 MCHC 29.7 L RDW 17.0 H RDW Differential 59.7 H Plt Count 202 MPV 9.4 Immature Gran % (Auto) 2.100 H Neut % (Auto) 84.1 H Lymph % (Auto) 6.1 L [place] % (Auto) 7.0 Eos % (Auto) 0.5 Baso % (Auto) 0.2 Absolute Neuts (auto) 22.2 H Absolute Lymphs (auto) 1.61 Total Counted Not Reportable Diff Path Review May foll Hypochromasia 1+ PT INR APTT D-Dimer Quant (PE/DVT) Sodium 134 L Potassium 3.4 L Chloride 95 L Carbon Dioxide 27.0 Anion Gap 12 BUN 46 H Creatinine 3.52 H Estim Creat Clear Calc 12.60 Est GFR (MDRD) Af Amer 17 L Est GFR (MDRD) Non-Af 14 L BUN/Creatinine Ratio 13.1 Glucose 117 H Lactic Acid Calcium 8.9 Magnesium Troponin I POC Glucose 08/18/18 08/18/18 08/17/18 06:26 01:04 21:30 POC Glucose 133 H 143 H 163 H 08/17/18 08/17/18 19:39 18:20 POC Glucose 112 H 53 L Assessment/Plan All Active Problems (Last Reviewed 09/09/17 @ 15:25 by Padmini Mitchell) Cellulitis of left hip (Acute) ESR raised (Acute) Clostridium difficile enterocolitis (Resolved) C. difficile colitis (Resolved) Hyperkalemia (Resolved) MRSA (methicillin resistant Staphylococcus aureus) infection (Resolved) Pseudomonas aeruginosa infection (Resolved) infected ischial tuberosity ulcer (Resolved) 1-end-stage renal disease patient. Patient is on hemodialysis Thursday schedule. Patient goes to [facility]. Last hemodialysis was Thursday. I will arrange for hemodialysis session today with the same chronic order. No ultrafiltration due to hemodynamic instability. Hemodialysis access is left upper extremity AV fistula which is positive for thrill 2-anemia: Hemoglobin 9.1. We will continue same chronic VISHAL order. RBCs transfusion when hemoglobin less than 7 as per ICU protocol. 3-BMD. Patient on calcium acetate 667 mg 3 times a day with meals We will monitor phosphorus level. 4-septic shock. Hemodynamic support/Abx as per the ICU team Dose antibiotics for patient on hemodialysis. Thank you for the consult. Renal team will continue to follow
--- NOTE | 2018-08-18 09:43 | CON.PCM_ITS ---
Reason for Consult Date of Consultation: 08/18/18 Reason for Consultation: Possible Septic Shock History of Present Illness: The patient is a 63-year-old female, with a history as outlined below, who presented to the emergency department on August 17 with complaints of generalized malaise, fatigue, subjective fever and worsening chronic hip wounds. The patient was recently admitted to the hospital at the end of July through August for with decubitus ulcers of the left and right hip with associated cellulitis. The patient was treated with antibiotics and instructed to follow-up with the wound care center upon discharge from the hospital. The patient additionally has known severe restrictive ventilatory mechanics, obstructive sleep apnea, tachy- bradycardia syndrome status post pacemaker placement and end-stage renal disease on hemodialysis. On presentation to the emergency department, the patient was noted to be afebrile, mildly tachycardic and a bit hypotensive. Laboratory evaluation revealed an elevated white blood cell count to 19,000. The patient had an elevated d-dimer to 1.29. Chemistry profile was notable for a creatinine of 3.34 with a potassium of 3.4. Initial lactate was normal at 1.5. Troponin was negative. A CTA chest was obtained which revealed no evidence for pulmonary embolism. Emphysematous changes were noted bilaterally. No acute airspace disease was identified. The patient did receive some supplemental IV fluids and was started on clindamycin for presumptive cellulitis of the bilateral hips. The patient was subsequently transferred to the progressive care unit. On the morning of August 18, a rapid response team was called in response to hypotension. At that time, the patient had systolic blood pressures in the 70s but was mentating appropriately. Of note, the patient is on Midodrin due to chronic hypotension. The patient's systolic blood pressures typically run in the 80s and 90s. The patient stabilized from a hemodynamic perspective with a small fluid bolus. However, a short time later, I was called back to the [facility] due to persistent hypotension and altered mentation. The patient was less responsive than previous and was therefore transferred to the medical intensive care unit for ongoing management. Upon arrival to the ICU, the patient was started on low-dose levophed to maintain hemodynamic stability. An arterial line was placed at the bedside. The patient's mentation improved without intervention. Over the course of the morning, the patient's Levophed requirement gradually increased. Given that her Levophed was initially running through a peripheral IV, the decision was made to place a central venous catheter to facilitate vasoactive medication administration. Consent was obtained from the patient. Central Venous Catheter (CVC, Central Line) Placement Indication: Intravenous access, administration of vasoactive agents Consent was obtained from: Patient A time-out was completed verifying correct patient, procedure, site, positioning, and special equipment if applicable. The patient was placed in a dependent position appropriate for central line placement based on the vein to be cannulated. The patient?s right neck was prepped and draped in sterile fashio n. 1% Lidocaine was used to anesthetize the surrounding skin area. A triple lumen catheter was introduced into the the right internal jugular vein using the Seldinger technique and under ultrasound guidance. The catheter was threaded smoothly over the guide wire and appropriate blood return was obtained. Each lumen of the catheter was evacuated of air and flushed with sterile saline. The catheter was then sutured in place to the skin and a sterile dressing applied. CXR to confirm appropriate positioning is pending. ULTRASOUND GUIDANCE STATEMENT (Vascular Access): I performed ultrasound image acquisition and interpretation for needle placement during this procedure. The vessel was identified and was found to be free of thrombosis by compression technique. A safe point of entry was marked at the skin and an angle for access was determined. The needle was guided by obtaining free flowing fluid and by real time visualization. Past Medical History Past Medical History (Chronic Problems): Chronic Problems (Last Reviewed 09/09/17 @ 15:25 by Padmini Mitchell) Chronic obstructive pulmonary disease (COPD) (Chronic) GRAEME (obstructive sleep apnea) (Chronic) non-compliant with CPAP Diabetes mellitus, type II (Chronic) Decubitus ulcer of left hip, stage 2 (Chronic) Decubitus ulcer of right hip, stage 2 (Chronic) Super obesity (Chronic) Anemia in chronic kidney disease (Chronic) Excessive dietary caloric intake (Chronic) Paroxysmal atrial fibrillation (Chronic) Cardiac pacemaker in situ (Chronic ~02/23/14) Hypertension (Chronic) Carotid bruit (Chronic) Tachycardia-bradycardia syndrome (Chronic) History of depression (Chronic) HLD (hyperlipidemia) (Chronic) Biatrial enlargement (Chronic) Pulmonary HTN (Chronic) ESRD (end stage renal disease) on dialysis (Chronic) Contusion of right lower leg (Chronic) Resulting in a nonhealing wound Right lower leg eschar (Chronic) Decubitus ulcer of ankle, stage 2 (Chronic) infected ischial tuberosity ulcer (Chronic) Medical History: Medical History (Last Reviewed 09/09/17 @ 15:25 by Padmini Mitchell) Cardiac pacemaker in situ (Chronic) Onset Date: ~02/23/14 Z95.0 Hypertension (Chronic) I10 Carotid bruit (Chronic) R09.89 Tachycardia-bradycardia syndrome (Chronic) I49.5 History of depression (Chronic) Z86.59 HLD (hyperlipidemia) (Chronic) E78.5 Biatrial enlargement (Chronic) I51.7 Pulmonary HTN (Chronic) I27.2 ESRD (end stage renal disease) on dialysis (Chronic) N18.6, Z99.2 Contusion of right lower leg (Chronic) S80.11XA Resulting in a nonhealing wound Right lower leg eschar (Chronic) Clostridium difficile enterocolitis (Resolved) A04.7 Decubitus ulcer of ankle, stage 2 (Chronic) L89.502 infected ischial tuberosity ulcer (Chronic) Asthma J45.909 CKD (chronic kidney disease) N18.9 COPD (chronic obstructive pulmonary disease) J44.9 Family history of hypertension Z82.49 Family history of sudden cardiac Z82.41 Paroxysmal atrial fibrillation I48.0 Respiratory failure, chronic J96.10 Type 2 diabetes mellitus E11.9 GRAEME (obstructive sleep apnea) G47.33 C. difficile colitis (Resolved) Hyperkalemia (Resolved) E87.5 infected ischial tuberosity ulcer (Resolved) Acute on chronic respiratory failure with hypoxia and hypercapnia (Inactive) J96.21, J96.22 Benign essential hypertension (Inactive) I10 COPD (chronic obstructive pulmonary disease) (Inactive) J44.9 FH: sudden cardiac (SCD) (Inactive) Z82.41 Fall (on) (from) other stairs and steps, initial encounter (Inactive) W10.8XXA Family history of hypertension (Inactive) Z82.49 History of chronic respiratory failure (Inactive) Z87.09 On 3 L nasal O2 buttermaker continuous churn use of drug (Inactive) Z79.899 Obstructive sleep apnea (Inactive) G47.33 PAF (paroxysmal atrial fibrillation) (Inactive) I48.0 with RVR Pacemaker (Inactive) Z95.0 DCCV 04/2015 Postoperative hypotension (Inactive) I95.89 Super obesity (Inactive) E66.9 Type II diabetes mellitus (Inactive) E11.9 Allergies cyclobenzaprine [From Flexeril] Allergy (Verified 08/17/18 18:00) Other oxycodone Allergy (Verified 08/17/18 18:00) Other rosuvastatin calcium [From Crestor] Allergy (Verified 08/17/18 18:00) Unknown Patient stated that she does not remember, it has been so long ago. Penicillins Adverse Reaction (Verified 08/17/18 18:00) Unknown GETS YEAST INFECTION prednisone Adverse Reaction (Verified 08/17/18 18:00) Other SENDS BLOOD SUGARS HIGH simvastatin Adverse Reaction (Verified 08/17/18 18:00) Unknown FEELS FUNNY Home Medications: Ambulatory Orders Medication Instructions Recorded Amiodarone HCl [Cordarone] 200 mg PO DAILY 02/14/17 Aspirin [Aspirin, Baby] 81 mg PO DAILY@0800 02/14/17 Benzonatate [Tessalon Perle] 100 mg PO PRN PRN 02/14/17 Bisacodyl [Dulcolax] 10 mg RECTAL PRN PRN 02/14/17 Calcium Acetate 667 mg PO TIDCM 02/14/17 Dextrose [Glucose Gel] 38 gm PO PRN PRN 02/14/17 Glucagon,Human Recombinant 1 mg IJ PRN PRN 02/14/17 [Glucagon Emergency Kit] Insulin Lispro [Humalog] 4 unit SQ TIDCM 02/14/17 Magnesium Hydroxide [Milk Of 30 ml PO DAILY PRN PRN 02/14/17 Magnesia] Meloxicam [Mobic] 7.5 mg PO DAILY 02/14/17 Montelukast [Singulair] 10 mg PO QHS 02/14/17 Na Phos,M-B/Na Phos,Di-Ba [Fleet 1 bottle RECTAL PRN PRN 02/14/17 Enema] Sertraline HCl [Zoloft] 50 mg PO DAILY 02/14/17 Cholecalciferol (Vitamin D3) 2,000 unit PO DAILY 08/02/18 [Vitamin D3] Fluticasone 110 Mcg [Flovent 110 1 puff INHALATION BID 08/02/18 Mcg] Insulin Glargine [Lantus SoloStar 12 units SC QHS 08/02/18 Pen] Insulin Lispro [Humalog] See Protocol SQ ACHS 08/02/18 Lactobacillus Rhamnosus GG 1 mg PO DAILY 08/02/18 [Culturelle] Levothyroxine [Synthroid] 25 mcg PO DAILY 08/02/18 Mag Hydrox/Aluminum Hyd/Simeth 30 ml PO Q4H PRN PRN 08/02/18 [Antacid Suspension] Midodrine HCl 10 mg PO TID 08/02/18 Omeprazole 20 mg PO DAILY 08/02/18 Polyethylene Glycol 3350 [Miralax] 17 gm PO QHS 08/02/18 Pramipexole Di-HCl [Mirapex] 0.5 mg PO DAILY 08/02/18 Pramipexole Di-HCl [Mirapex] 1 mg PO QHS 08/02/18 traMADol [Ultram] 50 mg PO Q8H PRN PRN 08/02/18 Acetaminophen [Tylenol] 1,000 mg PO Q8 tablet 08/06/18 Glucerna Shake 120 ml PO 4X/DAY liquid 08/06/18 Argin/Glut/Cahmb/Collag/Mv-Min 1 pack PO BID 08/17/18 [Maykel Packet] Ascorbic Acid 500 mg PO DAILY 08/17/18 Collagenase [Santyl] 1 applic TP DAILY 08/17/18 Metoprolol Tartrate 12.5 mg PO BID 08/17/18 Multivit,Stress Formula/Zinc 1 tab PO DAILY 08/17/18 [Stress Formula with Zinc Tab] Multivit,Tx with Iron,Minerals 1 tab PO DAILY 08/17/18 [Thera-M] Surgical History: Surgical History (Last Reviewed 09/09/17 @ 15:25 by Padmini Mitchell) H/O skin graft (Inactive) Z98.890 07/[address] Archie Fung to the nonhealing wound of the right lower extremity Surgical History: cataract, cholecystectomy, tonsillectomy, - - Placement of fistula and left upper arm placement of pacemaker, carpal tunnel surgery Psychiatric History: Anxiety, Depression CHIEF PORT DIRECTOR History: No pertinent CHIEF PORT DIRECTOR history Lives: Prison Smoking Status: Former smoker Tobacco Use: Non-smoker Alcohol: None Drugs: None - *Family History Maternal Family History: Family History (Last Reviewed 09/09/17 @ 15:25 by Padmini Mitchell) Mother Diabetes Hypertension Grandmother Myocardial infarction Grandfather Hypertension Father Hypertension History Items: Diabetes, Hypertension Paternal Family History: Family History (Last Reviewed 09/09/17 @ 15:25 by Padmini Mitchell) Mother Diabetes Hypertension Grandmother Myocardial infarction Grandfather Hypertension Father Hypertension History Items: Hypertension Sibling Family History: Family History (Last Reviewed 09/09/17 @ 15:25 by Padmini Mitchell) Mother Diabetes Hypertension Grandmother Myocardial infarction Grandfather Hypertension Father Hypertension History Items: No pertinent history Review of Systems Constitutional: Reports: Malaise, Weakness, Fatigue Eyes: Denies: Blurred vision, Double vision HEENT: Denies: Head Aches, Sinus Congestion, Sinus Drainage Cardiovascular: Denies: Chest Pain, Palpitations Respiratory: Reports: Shortness of Breath Gastrointestinal: Denies: Abdominal Pain, Nausea, Vomiting Genitourinary: Denies: Dysuria Musculoskeletal: Reports: Back Pain, - - B/L Hip Pain Skin: Reports: Wounds Neurological: Denies: Numbness, Tingling, Focal weakness Psychiatric: Denies: Anxiety, Depression, Homicidal Ideations, Suicidal Ideations Hematologic/ Lymphatic: Denies: Easy Bruising, Easy Bleeding Patient Problems: Active and Suspected Problems (Last Reviewed 09/09/17 @ 15:25 by Padmini Mitchell) Septic shock (Acute) Objective: The patient's most recent lab work, culture data and imaging studies have all been personally reviewed. Blood and wound culture are currently pending. - Physical Exam General: - - The patient is currently alert and appropriately interactive. HEENT: Atraumatic, PERRLA, Normocephalic Oral: No Gingival or Mucosal Lesions/ Ulcerations, - Neck: Supple, No Nodes, Trachea Midline, - - Large neck circumference with redundant soft tissue. Right IJ central venous catheter in place. Lungs: No rhonchi, No wheeze, No rales, Diminished Cardiovascular: Normal S1, Normal S2, No murmurs, Irregular Rate, Tachycardic Abdomen: Bowel Sounds Present, Soft, Non Tender, Obese Extremities: No clubbing, No cyanosis, Edema Skin: - - Chronic venous stasis dermatitis of lower extremities. Draining, ulcerated wounds on bilateral hips. Musculoskeletal: No Muscle Wasting Lymphatic: No Cervical, Supraclavicular, or Inguinal Adenopathy Neurological: - - No focal neurological deficits. Vital Signs Temp Pulse Resp BP Pulse Ox 36.1 C L 109 H 20 H 111/98 H 94 08/18/18 08:40 08/18/18 09:24 08/18/18 09:24 08/18/18 09:24 08/18/18 09:24 Oxygen Flow Rate (L/min) 5 Oxygen Delivery Method Nasal Cannula Weight: 326 lb 1.019 oz Body Mass Index (BMI) 59.6 Finger Stick Blood Glucose 112 Intake and Output for Last 24 Hours 08/16/18 08/17/18 08/18/18 23:59 23:59 23:59 Intake Total 150 / 150 Output Total 0 / 0 Balance 150 / 150 Laboratory Tests Past 24 Hrs 08/17/18 08/17/18 08/17/18 18:30 18:30 18:30 WBC 18.5 H RBC 3.52 L Hgb 10.3 L Hct 34.4 L MCV 97.7 MCH 29.3 MCHC 29.9 L RDW 16.9 H RDW Differential 59.2 H Plt Count 240 MPV 9.7 Immature Gran % (Auto) 1.600 H Neut % (Auto) 82.5 H Lymph % (Auto) 8.6 L [place] % (Auto) 6.7 Eos % (Auto) 0.4 Baso % (Auto) 0.2 Absolute Neuts (auto) 15.3 H Absolute Lymphs (auto) 1.60 Total Counted Not Reportable Diff Path Review Hypochromasia PT INR APTT D-Dimer Quant (PE/DVT) 1.29 H* Sodium 135 L Potassium 3.4 L Chloride 94 L Carbon Dioxide 32.0 Anion Gap 9 BUN 44 H Creatinine 3.34 H Estim Creat Clear Calc 13.28 Est GFR (MDRD) Af Amer 18 L Est GFR (MDRD) Non-Af 15 L BUN/Creatinine Ratio 13.2 Glucose 51 L Lactic Acid Calcium 9.4 Magnesium Troponin I < 0.015 08/17/18 08/17/18 08/17/18 18:30 18:30 21:05 WBC RBC Hgb Hct MCV MCH MCHC RDW RDW Differential Plt Count MPV Immature Gran % (Auto) Neut % (Auto) Lymph % (Auto) [place] % (Auto) Eos % (Auto) Baso % (Auto) Absolute Neuts (auto) Absolute Lymphs (auto) Total Counted Diff Path Review Hypochromasia PT 16.4 H INR 1.3 APTT 41.4 H D-Dimer Quant (PE/DVT) Sodium Potassium Chloride Carbon Dioxide Anion Gap BUN Creatinine Estim Creat Clear Calc Est GFR (MDRD) Af Amer Est GFR (MDRD) Non-Af BUN/Creatinine Ratio Glucose Lactic Acid 1.5 Calcium Magnesium 2.0 Troponin I 08/18/18 08/18/18 06:05 06:05 WBC 26.4 H RBC 3.10 L Hgb 9.1 L Hct 30.6 L MCV 98.7 MCH 29.4 MCHC 29.7 L RDW 17.0 H RDW Differential 59.7 H Plt Count 202 MPV 9.4 Immature Gran % (Auto) 2.100 H Neut % (Auto) 84.1 H Lymph % (Auto) 6.1 L [place] % (Auto) 7.0 Eos % (Auto) 0.5 Baso % (Auto) 0.2 Absolute Neuts (auto) 22.2 H Absolute Lymphs (auto) 1.61 Total Counted Not Reportable Diff Path Review May foll Hypochromasia 1+ PT INR APTT D-Dimer Quant (PE/DVT) Sodium 134 L Potassium 3.4 L Chloride 95 L Carbon Dioxide 27.0 Anion Gap 12 BUN 46 H Creatinine 3.52 H Estim Creat Clear Calc 12.60 Est GFR (MDRD) Af Amer 17 L Est GFR (MDRD) Non-Af 14 L BUN/Creatinine Ratio 13.1 Glucose 117 H Lactic Acid Calcium 8.9 Magnesium Troponin I POC Glucose 08/18/18 08/18/18 08/17/18 06:26 01:04 21:30 POC Glucose 133 H 143 H 163 H 08/17/18 08/17/18 19:39 18:20 POC Glucose 112 H 53 L Clinical Impression(s) from Imaging Studies Chest X-Ray 08/17/18 18:57 IMPRESSION: Cardiomegaly with vascular congestion, similar to prior. at 1951 Reported and signed by: Ismael Lemos MD Electronically Signed: Ismael Lemos, at 19:50 EST Tel , Service support , Chest CTA 08/17/18 20:11 IMPRESSION: No demonstrated pulmonary embolism, aneurysm, leak or arterial dissection. Mild emphysema, scarring in the lung bases, resolution of previous airspace disease. No pulmonary edema, congestive heart failure or confluent pneumonia. Stable cardiac enlargement, atherosclerosis, postsurgical changes, degenerative changes, obesity, hepatomegaly and hepatic steatosis suspected, remote granulomatous exposure. Electronically Signed: Taylor Delgado MD at 23:10 EST , Service support , Assessment/Plan Active and Suspected Problems (Last Reviewed 09/09/17 @ 15:25 by Padmini Mitchell) Septic shock (Acute) RECOMMENDATIONS: 1. Place arterial line for more accurate hemodynamic monitoring. 2. Continue Levophed to maintain a mean arterial pressure at or above 60 mmHg. Will add vasopressin as well, if clinically indicated. 3. Recheck serum lactate level. 4. Continue broad-spectrum antimicrobials. 5. Reevaluation by wound care nurse. 6. Obtain arterial blood gas 7. Start BiPAP 23/17 centimeters of water, per polysomnogram dated 2014, with naps and nightly. 8. Plastic surgery and infectious diseases consultations placed. IMPRESSIONS: 1. Septic shock with concern for worsening chronic hip wounds as the source of infection The patient was initially admitted to the hospital and started on antibiotics for acute on chronic bilateral hip wounds. However, with time, the patient deteriorated clinically and required transfer to the medical intensive care [facility]. The patient is currently in septic shock with concerns for wounds to the bilateral hips and a significant vasopressor requirement to maintain hemodynamic stability. Recommend continuing vasopressor support in an attempt to maintain a mean arterial pressure at or above 60 mmHg. Broad-spectrum antibiotics will be continued. Infectious diseases has been consulted. The patient was also evaluated by plastic surgery, with plans for debridement this afternoon. 2. Metabolic encephalopathy Likely secondary to #1 with concern for possible CO2 retention as well. We will continue supportive measures for potential soft tissue infectious process. We will also obtain arterial blood gas and initiate noninvasive positive pressure ventilation as needed. Avoid sedating medications. 3. End-stage renal disease on hemodialysis Nephrology to see patient today. She is normally on a Thursday, Thursday, Thursday dialysis schedule. Given the need for surgical intervention and current vasopressor requirement, recommend holding on dialysis today. 4. History of obstructive sleep apnea and restrictive lung mechanics Continue nocturnal noninvasive positive pressure ventilation with naps and nightly. Orders have been placed accordingly. 5. Super morbid obesity/diabetes mellitus/tachy-bradycardia syndrome/chronic pain syndrome/hypothyroidism/GERD Complicates care, management, recovery and prognosis. Hold beta-marvel for now. The remainder of the patient's baseline medications can be continued from my perspective. 6. CODE STATUS DNR CCA without intubation. TIME: 85 minutes of critical care time, inclusive of procedures, was spent addressing the patient's septic shock, acute on chronic bilateral hip wounds, metabolic encephalopathy, end-stage renal disease on hemodialysis, obstructive sleep apnea, restrictive lung disease, review of all data and collaboration with the care team. ([id number], [id number], [id number]) Code Visit Procedures: 79649 Critial Care Addl 30 Min 9xxxx: [id number] Critical care first hour
--- NOTE | 2018-08-18 10:13 | CASEMGMT ---
Addendum entered by Carmel Mayfield 08/18/18 12:34: Vanessa called and said that [facility] actually has dialysis on site, and that [facility] provides the dialysis. She states that Beatriz wants TB test information and the hep panel. Vanessa is going to look into gettin this information for [facility] and will let this SW know if she needs assist. HOWARD Riley, HAIR SPRING WINDER Original Note: Pt is a [facility] resident [facility]. SW called and verified this, updates faxed. Pt's is in the waiting room. He states that the plan is for pt to return to [facility], however they were working on getting pt into [facility] where she could go to dialysis on a cot. SW explained that pt will likely return to [facility] and they will keep working on it from there. states understanding. SW explained will call Vanessa and speak w/her in regard to this. BISHOP called Vanessa at [facility]. Pt is not able to sit up in the chair to go to dialysis, so they are looking to transfer pt to [facility], as they are able to have pt go by cot to dialysis from there. Also, they are working to switch pt from [facility] to [facility] in [place], to a different dialysis center, but this is taking some time as Beatriz has asked ongoingly for clinical information. Beatriz told [facility] it could take up to five days to get pt a spot. Upon further discussion w/Vanessa it seems pt can not go back to [facility] as pt cannot go by ambulette to dialysis from there, and they cannot provide ambulance transportation. Therefore, it seems pt will need to go to [facility] from here with the ambulance transport set up to the [facility] in [place]. Vanessa states her practice administrator is working on this as well, SW let Vanessa know to let this BISHOP how to assist in the process of getting pt from here to [facility] at discharge with dialysis at [facility] via cot. Phillip to let this BISHOP know. SW will continue to follow. HOWARD Riley, HAIR SPRING WINDER
--- NOTE | 2018-08-18 10:29 | CPS ---
Decreased to 3 LPM after ABG results of PO2 of 132 on 5LPM.
--- NOTE | 2018-08-18 10:30 | NURSING ---
Spoke with and updated on patients condition
[2018-08-18 10:31] LABS: Base Excess 7 mmol/L (-2 to +2); Bicarbonate 31.3 mmol/L (22-26); Blood Gas Specimen Type ALINE; O2 Delivery Device Nasal Can; PO2 132 mmHG (75-100); SITE OTHER; SO2 99 % (95-99); Time Given 1025; Total Carbon Dioxide 33 mmol/L; pH 7.43 (7.35-7.45)
--- NOTE | 2018-08-18 10:32 | CASEMGMT ---
As per admitting RN, pt has a living will but not able to bring here. Pt does not have POA forms and declined further information. SW asked , he is unaware of any papers, SW asked CC, they also have no advance directives on file for this pt. HOWARD Riley, COST ACCOUNTING ANALYST
[2018-08-18 11:00] LABS: Lactic Acid 0.9 mmol/L (0.4-2.0)
[2018-08-18 11:21] LABS: Bedside Glucose 316 mg/dL (70-110)
--- NOTE | 2018-08-18 11:31 | RAD_ITS ---
STUDY: X-RAY CHEST REASON FOR EXAM: Female, 63 years old. Central line placement. TECHNIQUE: Single AP portable view of the chest. COMPARISON: Comparison is made with prior examination dated August 17, 2018. FINDINGS: A right-sided internal jugular venous catheter has been placed. The tip is in the proximal portion of the superior vena cava. EKG liquids are seen. Stable vascular congestion. There is no demonstrated pleural abnormality. There is moderate cardiac enlargement. A right-sided dual-chamber pacemaker is seen. Normal mediastinum and dulce maria. Normal visualized pulmonary arteries. There is atherosclerotic tortuosity of the aortic arch and descending thoracic aorta. Normal visualized thoracic spine. Normal visualized ribs, clavicles, and shoulders. There is no demonstrated abnormality of the visualized soft tissue structures of the upper abdomen. RAD/CXR for Line Placement IMPRESSION: The tip of the right internal jugular venous catheter is seen in the proximal portion of the superior vena cava. The remainder of the examination is unchanged. Electronically Signed: Bo Morris MD at 13:40 EST Tel [phone], Service support ,
[2018-08-18 11:40] LABS: Pathologist Review Reviewed
[2018-08-18 12:16] LABS: M R Staph aureus DNA By PCR POSITIVE (Negative); Probe Check PASS; Staph aureus DNA By PCR POSITIVE (Negative)
[2018-08-18 12:36] LABS: Bedside Glucose 140 mg/dL (70-110)
--- NOTE | 2018-08-18 12:48 | CON.PCM_ITS ---
Reason for Consult Date of Consultation: 08/18/18 Reason for Consultation: Necrotic MRSA abscesses bilateral hips/lateral thighs. REFERRING PHYSICIAN: Dr. Morales. EVENTS ASSOCIATE: Dr. Allan. History of Present Illness: The patient is a 63 year old F with a history of diabetes mellitus and ESRD on dialysis was admitted to the hospital with increased fatigue, weakness, malaise in addition to worsened primarily left hip wound redness with foul odor drainage. Patient states she developed pressure injuries to her bilateral hip/lateral thigh areas because she would sit in a wheelchair that was too small for her and she would be in the chair for up to 4 hours during her dialysis. She developed worsening necrosis in the area of the pressure injury with foul odor and drainage. Dakin's dressing changes were started to help with the odor. Initially her WBC was 18.5 and today it has increased to 26.4. She is on Vancomycin and Zosyn. MRSA Wound DNA by PCR was positive. This morning she was hypotensive and placed on pressors and transferred to the ICU. I was asked to evaluate this patient for surgical options for treatment. Past Medical History Past Medical History (Chronic Problems): Chronic Problems (Last Reviewed 09/09/17 @ 15:25 by Padmini Mitchell) Chronic obstructive pulmonary disease (COPD) (Chronic) GRAEME (obstructive sleep apnea) (Chronic) non-compliant with CPAP Diabetes mellitus, type II (Chronic) Decubitus ulcer of left hip, stage 2 (Chronic) Decubitus ulcer of right hip, stage 2 (Chronic) Super obesity (Chronic) Anemia in chronic kidney disease (Chronic) Excessive dietary caloric intake (Chronic) Paroxysmal atrial fibrillation (Chronic) Cardiac pacemaker in situ (Chronic ~02/23/14) Hypertension (Chronic) Carotid bruit (Chronic) Tachycardia-bradycardia syndrome (Chronic) History of depression (Chronic) HLD (hyperlipidemia) (Chronic) Biatrial enlargement (Chronic) Pulmonary HTN (Chronic) ESRD (end stage renal disease) on dialysis (Chronic) Contusion of right lower leg (Chronic) Resulting in a nonhealing wound Right lower leg eschar (Chronic) Decubitus ulcer of ankle, stage 2 (Chronic) infected ischial tuberosity ulcer (Chronic) Medical History: Medical History (Last Reviewed 09/09/17 @ 15:25 by Padmini Mitchell) Cardiac pacemaker in situ (Chronic) Onset Date: ~02/23/14 Z95.0 Hypertension (Chronic) I10 Carotid bruit (Chronic) R09.89 Tachycardia-bradycardia syndrome (Chronic) I49.5 History of depression (Chronic) Z86.59 HLD (hyperlipidemia) (Chronic) E78.5 Biatrial enlargement (Chronic) I51.7 Pulmonary HTN (Chronic) I27.2 ESRD (end stage renal disease) on dialysis (Chronic) N18.6, Z99.2 Contusion of right lower leg (Chronic) S80.11XA Resulting in a nonhealing wound Right lower leg eschar (Chronic) Clostridium difficile enterocolitis (Resolved) A04.7 Decubitus ulcer of ankle, stage 2 (Chronic) L89.502 infected ischial tuberosity ulcer (Chronic) Asthma J45.909 CKD (chronic kidney disease) N18.9 COPD (chronic obstructive pulmonary disease) J44.9 Family history of hypertension Z82.49 Family history of sudden cardiac Z82.41 Paroxysmal atrial fibrillation I48.0 Respiratory failure, chronic J96.10 Type 2 diabetes mellitus E11.9 GRAEME (obstructive sleep apnea) G47.33 C. 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 Penicillins Adverse Reaction (Verified 08/17/18 18:00) Unknown GETS YEAST INFECTION prednisone Adverse Reaction (Verified 08/17/18 18:00) Other SENDS BLOOD SUGARS HIGH simvastatin Adverse Reaction (Verified 08/17/18 18:00) Unknown FEELS FUNNY Current Medications Acetaminophen (Tylenol) 650 mg PO Q6H PRN Acetaminophen (Tylenol) 1,000 mg PO Q8 BHAVNA Al Hydroxide/Mg Hydroxide (Mylanta Ii) 30 ml PO Q4H PRN Albuterol Sulfate (Ventolin Aerosols) 2.5 mg INHALATION Q2H PRN Albuterol/Ipratropium (Duoneb) 3 ml INHALATION Q4HWA.RT BHAVNA Amiodarone HCl (Cordarone) 200 mg PO DAILY BHAVNA Aspirin (Aspirin, Baby) 81 mg PO DAILY@0800 BHAVNA Bisacodyl (Dulcolax) 10 mg RECTAL DAILY PRN Calcium Acetate (Phoslo Gel Cap) 667 mg PO TIDCM [facility] Dextrose (D50w Syringe) 0 gm IV X1 PRN Glucagon () 1 mg IM .X1 PRN Heparin Sodium (Porcine) (Heparin Na) 5,000 unit SC Q8 BHAVNA Hydralazine HCl (Apresoline Iv) 10 mg IV Q4H PRN Piperacillin Sod/Tazobactam Sod (Zosyn) 3.375 gm in 50 mls @ 12.5 mls/hr IV Q12 [facility] Vancomycin IV Pharmacy to Dose (1 ea/ Sodium Chloride) 500 mls @ 250 mls/hr IV PRN Norepinephrine Bitartrate 8 mg (/ Dextrose) 258 mls @ 9.68 mls/hr IV .[id number] BHAVNA Vasopressin 40 units/ Sodium (Chloride) 52 mls @ 3.12 mls/hr IV .[id number] BHAVNA Insulin Glargine (Lantus (Bkc)) 12 units SC QHS BHAVNA Insulin Human Lispro (Humalog Kwikpen (Bkc)) 0 unit SC ACHS BHAVNA Insulin Human Lispro (Humalog Kwikpen (Bkc)) 4 unit SC TIDAC BHAVNA Levothyroxine Sodium (Synthroid) 25 mcg PO DAILY@0600 BHAVNA Magnesium Hydroxide (Milk Of Magnesia) 30 ml PO DAILY PRN Midodrine (Proamatine) 10 mg PO TID BHAVNA Montelukast Sodium (Singulair) 10 mg PO QHS [facility] Nutritional Formula (Maykel - [place] Flavor) 1 packet PO BID [facility] Nutritional Formula (Lactose Free) (Glucerna Shake) 120 ml PO 4X/DAY [facility] Nystatin (Mycostatin Powder) 1 applic TOPICAL TID BHAVNA Ondansetron HCl (Zofran) 4 mg IV Q8H PRN Pantoprazole Sodium (Protonix) 20 mg PO DAILY BHAVNA Polyethylene Glycol (Miralax) 17 gm PO QHS [facility] Pramipexole Dihydrochloride (Mirapex) 1 mg PO QHS BHAVNA Pramipexole Dihydrochloride (Mirapex) 0.5 mg PO DAILY BHAVNA Sertraline HCl (Zoloft) 50 mg PO DAILY [facility] Sodium Hypochlorite (Dakins Solution 0.25% (1/2 Strength)) 1 applic TOPICAL BID BHAVNA Tramadol 50 mg GT q12H PRN Home Medications: Ambulatory Orders Medication Instructions Recorded Amiodarone HCl [Cordarone] 200 mg PO DAILY 02/14/17 Aspirin [Aspirin, Baby] 81 mg PO DAILY@0800 02/14/17 Benzonatate [Tessalon Perle] 100 mg PO PRN PRN 02/14/17 Bisacodyl [Dulcolax] 10 mg RECTAL PRN PRN 02/14/17 Calcium Acetate 667 mg PO TIDCM 02/14/17 Dextrose [Glucose Gel] 38 gm PO PRN PRN 02/14/17 Glucagon,Human Recombinant 1 mg IJ PRN PRN 02/14/17 [Glucagon Emergency Kit] Insulin Lispro [Humalog] 4 unit SQ TIDCM 02/14/17 Magnesium Hydroxide [Milk Of 30 ml PO DAILY PRN PRN 02/14/17 Magnesia] Meloxicam [Mobic] 7.5 mg PO DAILY 02/14/17 Montelukast [Singulair] 10 mg PO QHS 02/14/17 Na Phos,M-B/Na Phos,Di-Ba [Fleet 1 bottle RECTAL PRN PRN 02/14/17 Enema] Sertraline HCl [Zoloft] 50 mg PO DAILY 02/14/17 Cholecalciferol (Vitamin D3) 2,000 unit PO DAILY 08/02/18 [Vitamin D3] Fluticasone 110 Mcg [Flovent 110 1 puff INHALATION BID 08/02/18 Mcg] Insulin Glargine [Lantus SoloStar 12 units SC QHS 08/02/18 Pen] Insulin Lispro [Humalog] See Protocol SQ ACHS 08/02/18 Lactobacillus Rhamnosus GG 1 mg PO DAILY 08/02/18 [Culturelle] Levothyroxine [Synthroid] 25 mcg PO DAILY 08/02/18 Mag Hydrox/Aluminum Hyd/Simeth 30 ml PO Q4H PRN PRN 08/02/18 [Antacid Suspension] Midodrine HCl 10 mg PO TID 08/02/18 Omeprazole 20 mg PO DAILY 08/02/18 Polyethylene Glycol 3350 [Miralax] 17 gm PO QHS 08/02/18 Pramipexole Di-HCl [Mirapex] 0.5 mg PO DAILY 08/02/18 Pramipexole Di-HCl [Mirapex] 1 mg PO QHS 08/02/18 traMADol [Ultram] 50 mg PO Q8H PRN PRN 08/02/18 Acetaminophen [Tylenol] 1,000 mg PO Q8 tablet 08/06/18 Glucerna Shake 120 ml PO 4X/DAY liquid 08/06/18 Argin/Glut/Cahmb/Collag/Mv-Min 1 pack PO BID 08/17/18 [Maykel Packet] Ascorbic Acid 500 mg PO DAILY 08/17/18 Collagenase [Santyl] 1 applic TP DAILY 08/17/18 Metoprolol Tartrate 12.5 mg PO BID 08/17/18 Multivit,Stress Formula/Zinc 1 tab PO DAILY 08/17/18 [Stress Formula with Zinc Tab] Multivit,Tx with Iron,Minerals 1 tab PO DAILY 08/17/18 [Thera-M] Surgical History: Surgical History (Last Reviewed 09/09/17 @ 15:25 by Padmini Mitchell) H/O skin graft (Inactive) Z98.890 07/[address] Archie Fung to the nonhealing wound of the right lower extremity Surgical History: cataract, cholecystectomy, tonsillectomy, - - Placement of fistula and left upper arm placement of pacemaker, carpal tunnel surgery Psychiatric History: Anxiety, Depression [employer]ICATOR [employer] History: No pertinent [employer] history Lives: [facility] Smoking Status: Former smoker Tobacco Use: Non-smoker Alcohol: None Drugs: None - *Family History Maternal Family History: Family History (Last Reviewed 09/09/17 @ 15:25 by Padmini Mitchell) Mother Diabetes Hypertension Grandmother Myocardial infarction Grandfather Hypertension Father Hypertension History Items: Diabetes, Hypertension Paternal Family History: Family History (Last Reviewed 09/09/17 @ 15:25 by Padmini Mitchell) Mother Diabetes Hypertension Grandmother Myocardial infarction Grandfather Hypertension Father Hypertension History Items: Hypertension Sibling Family History: Family History (Last Reviewed 09/09/17 @ 15:25 by Padmini Mitchell) Mother Diabetes Hypertension Grandmother Myocardial infarction Grandfather Hypertension Father Hypertension History Items: No pertinent history Review of Systems Comment: Constitutional: Reports: Anorexia, Fever, Malaise, Weakness, Fatigue. Denies: Chills, Weight Change. HEENT: Denies: Head Aches, Sinus Congestion, Sinus Drainage. Cardiovascular: Denies: Chest Pain, Palpitations. Respiratory: Reports: Shortness of Breath, Shortness of breath at rest, Shortness of breath upon exertion. Denies: Cough, Sputum production, Wheezing. Gastrointestinal: Denies: Abdominal Pain, Nausea, Vomiting. Genitourinary: Denies: Dysuria. Musculoskeletal: Reports: Joint Pain. Denies: Joint Tenderness. Skin: Reports: Skin Changes, Wounds. Denies: Rash. Neurological: Denies: Numbness, Tingling, Focal weakness. Psychiatric: Reports: Anxiety, Depression. Denies: Homicidal Ideations, Suicidal Ideations. Hematologic/ Lymphatic: Reports: Anemia. Denies: Easy Bruising, Easy Bleeding Patient Problems: Active and Suspected Problems (Last Reviewed 09/09/17 @ 15:25 by Padmini Mitchell) Septic shock (Acute) - Physical Exam General: awake, alert, oriented x 3 and cooperative. HEENT: EOMI, PERRLA. Neck: supple, nontender. No cervical adenopathy. Lungs: Diminished breath sounds bilaterally. No wheezing. Heart: Irregular. Abdomen: soft, obese, nondistended. Extremities: no cyanosis, clubbing. Lower extremity chronic venous skin changes. Bilateral lower extremity edema. No inguinal adenopathy. On the left hip/lateral thigh is a large area of redness and induration and tenderness. No purulent drainage. Some fluctuance noted. There is some necrotic skin measuring 7 cm. The area of redness and induration measures 18 cm . On the right hip/lateral thigh is a large area of redness and induration and tenderness. Some foul odor coming from the area with purulent drainage. Some fluctuance noted. There is a large area of necrotic skin measuring 11 cm. The area of redness and induration measures 21 cm. Neurological: cranial nerves II-XII grossly intact. Psychiatric: affect appears fatigued, no acute evidence of depressive or anxiety feelings. Vital Signs Temp Pulse Resp BP Pulse Ox 96.9 F L 108 H 23 H 75/40 L 97 08/18/18 08:40 08/18/18 11:30 08/18/18 11:30 08/18/18 11:30 08/18/18 11:30 Oxygen Flow Rate (L/min) 3 Oxygen Delivery Method Nasal Cannula Weight: 326 lb 1.019 oz Body Mass Index (BMI) 59.6 Finger Stick Blood Glucose 112 Intake and Output for Last 24 Hours 08/16/18 08/17/18 08/18/18 23:59 23:59 23:59 Intake Total 150 / 150 Output Total 0 / 0 Balance 150 / 150 Microbiology Past 72 Hours 08/18/18 02:00 Gram Stain - Final Wound - Hip Laboratory Tests Past 24 Hrs 08/17/18 08/17/18 08/17/18 18:30 18:30 18:30 WBC 18.5 H RBC 3.52 L Hgb 10.3 L Hct 34.4 L MCV 97.7 MCH 29.3 MCHC 29.9 L RDW 16.9 H RDW Differential 59.2 H Plt Count 240 MPV 9.7 Immature Gran % (Auto) 1.600 H Neut % (Auto) 82.5 H Lymph % (Auto) 8.6 L [place] % (Auto) 6.7 Eos % (Auto) 0.4 Baso % (Auto) 0.2 Absolute Neuts (auto) 15.3 H Absolute Lymphs (auto) 1.60 Total Counted Not Reportable Diff Path Review Hypochromasia ESR PT INR APTT D-Dimer Quant (PE/DVT) 1.29 H* Specimen Type Sample Site pH Bicarbonate Actual POC Total CO2 Base Excess O2 Saturation ABG pCO2 ABG pO2 O2 Delivery Device Liter Flow Blood Gas Notified Whom Blood Gas Notified Time Sodium 135 L Potassium 3.4 L Chloride 94 L Carbon Dioxide 32.0 Anion Gap 9 BUN 44 H Creatinine 3.34 H Estim Creat Clear Calc 13.28 Est GFR (MDRD) Af Amer 18 L Est GFR (MDRD) Non-Af 15 L BUN/Creatinine Ratio 13.2 Glucose 51 L Lactic Acid Calcium 9.4 Magnesium Troponin I < 0.015 C-React Prot Ext Range S.aureus Protein A PCR MRSA (PCR) 08/17/18 08/17/18 08/17/18 18:30 18:30 21:05 WBC RBC Hgb Hct MCV MCH MCHC RDW RDW Differential Plt Count MPV Immature Gran % (Auto) Neut % (Auto) Lymph % (Auto) [place] % (Auto) Eos % (Auto) Baso % (Auto) Absolute Neuts (auto) Absolute Lymphs (auto) Total Counted Diff Path Review Hypochromasia ESR PT 16.4 H INR 1.3 APTT 41.4 H D-Dimer Quant (PE/DVT) Specimen Type Sample Site pH Bicarbonate Actual POC Total CO2 Base Excess O2 Saturation ABG pCO2 ABG pO2 O2 Delivery Device Liter Flow Blood Gas Notified Whom Blood Gas Notified Time Sodium Potassium Chloride Carbon Dioxide Anion Gap BUN Creatinine Estim Creat Clear Calc Est GFR (MDRD) Af Amer Est GFR (MDRD) Non-Af BUN/Creatinine Ratio Glucose Lactic Acid 1.5 Calcium Magnesium 2.0 Troponin I C-React Prot Ext Range S.aureus Protein A PCR MRSA (PCR) 08/18/18 08/18/18 08/18/18 06:05 06:05 06:05 WBC 26.4 H RBC 3.10 L Hgb 9.1 L Hct 30.6 L MCV 98.7 MCH 29.4 MCHC 29.7 L RDW 17.0 H RDW Differential 59.7 H Plt Count 202 MPV 9.4 Immature Gran % (Auto) 2.100 H Neut % (Auto) 84.1 H Lymph % (Auto) 6.1 L [place] % (Auto) 7.0 Eos % (Auto) 0.5 Baso % (Auto) 0.2 Absolute Neuts (auto) 22.2 H Absolute Lymphs (auto) 1.61 Total Counted Not Reportable Diff Path Review Reviewed Hypochromasia 1+ ESR Pending PT INR APTT D-Dimer Quant (PE/DVT) Specimen Type Sample Site pH Bicarbonate Actual POC Total CO2 Base Excess O2 Saturation ABG pCO2 ABG pO2 O2 Delivery Device Liter Flow Blood Gas Notified Whom Blood Gas Notified Time Sodium 134 L Potassium 3.4 L Chloride 95 L Carbon Dioxide 27.0 Anion Gap 12 BUN 46 H Creatinine 3.52 H Estim Creat Clear Calc 12.60 Est GFR (MDRD) Af Amer 17 L Est GFR (MDRD) Non-Af 14 L BUN/Creatinine Ratio 13.1 Glucose 117 H Lactic Acid Calcium 8.9 Magnesium Troponin I C-React Prot Ext Range S.aureus Protein A PCR MRSA (PCR) 08/18/18 08/18/18 08/18/18 06:05 09:45 10:26 WBC RBC Hgb Hct MCV MCH MCHC RDW RDW Differential Plt Count MPV Immature Gran % (Auto) Neut % (Auto) Lymph % (Auto) [place] % (Auto) Eos % (Auto) Baso % (Auto) Absolute Neuts (auto) Absolute Lymphs (auto) Total Counted Diff Path Review Hypochromasia ESR PT INR APTT D-Dimer Quant (PE/DVT) Specimen Type MELODY Sample Site OTHER pH 7.43 Bicarbonate Actual 31.3 H POC Total CO2 33 Base Excess 7 H O2 Saturation 99 ABG pCO2 47.0 H ABG pO2 132 H O2 Delivery Device Nasal Can Liter Flow 5.0 Blood Gas Notified Whom ICU MD Blood Gas Notified Time 1025 Sodium Potassium Chloride Carbon Dioxide Anion Gap BUN Creatinine Estim Creat Clear Calc Est GFR (MDRD) Af Amer Est GFR (MDRD) Non-Af BUN/Creatinine Ratio Glucose Lactic Acid Calcium Magnesium Troponin I C-React Prot Ext Range 152.00 H S.aureus Protein A PCR POSITIVE H MRSA (PCR) POSITIVE H 08/18/18 10:30 WBC RBC Hgb Hct MCV MCH MCHC RDW RDW Differential Plt Count MPV Immature Gran % (Auto) Neut % (Auto) Lymph % (Auto) [place] % (Auto) Eos % (Auto) Baso % (Auto) Absolute Neuts (auto) Absolute Lymphs (auto) Total Counted Diff Path Review Hypochromasia ESR PT INR APTT D-Dimer Quant (PE/DVT) Specimen Type Sample Site pH Bicarbonate Actual POC Total CO2 Base Excess O2 Saturation ABG pCO2 ABG pO2 O2 Delivery Device Liter Flow Blood Gas Notified Whom Blood Gas Notified Time Sodium Potassium Chloride Carbon Dioxide Anion Gap BUN Creatinine Estim Creat Clear Calc Est GFR (MDRD) Af Amer Est GFR (MDRD) Non-Af BUN/Creatinine Ratio Glucose Lactic Acid 0.9 Calcium Magnesium Troponin I C-React Prot Ext Range S.aureus Protein A PCR MRSA (PCR) POC Glucose 08/18/18 08/18/18 08/18/18 12:15 08:40 06:26 POC Glucose 140 H 316 H 133 H 08/18/18 08/17/18 08/17/18 01:04 21:30 19:39 POC Glucose 143 H 163 H 112 H 08/17/18 18:20 POC Glucose 53 L Diagnostic Data Chest CTA 08/17/18 20:11 IMPRESSION: No demonstrated pulmonary embolism, aneurysm, leak or arterial dissection. Mild emphysema, scarring in the lung bases, resolution of previous airspace disease. No pulmonary edema, congestive heart failure or confluent pneumonia. Stable cardiac enlargement, atherosclerosis, postsurgical changes, degenerative changes, obesity, hepatomegaly and hepatic steatosis suspected, remote granulomatous exposure. Electronically Signed: Taylor Delgado MD at 23:10 EST , Service support , Assessment/Plan All Active Problems (Last Reviewed 09/09/17 @ 15:25 by Padmini Mitchell) Pressure injury of deep tissue of right thigh (Acute) Pressure injury of deep tissue of left thigh (Acute) Abscess of right thigh (Acute) Abscess of left thigh (Acute) Methicillin resistant Staphylococcus aureus infection (Acute) Necrotizing soft tissue infection (Acute) Skin necrosis (Acute) Cellulitis of left hip (Acute) ESR raised (Acute) Septic shock (Acute) Clostridium difficile enterocolitis (Resolved) C. difficile colitis (Resolved) Hyperkalemia (Resolved) MRSA (methicillin resistant Staphylococcus aureus) infection (Resolved) Pseudomonas aeruginosa infection (Resolved) infected ischial tuberosity ulcer (Resolved) 1. Necrotic pressure injury MRSA abscess bilateral hips/lateral thighs. 2. MRSA. 3. Sepsis. 4. Diabetes mellitus. 5. ESRD with dialysis. Patient has worsening infection bilateral hips/lateral thighs. She is on pressors for blood pressure issues. Her WBC has increased to 24. With her history of diabetes mellitus and ESRD requiring dialysis, she is at increased risk for this infection worsening and extending to her fascia with necrotizing fasciitis and her muscle with necrosis. She needs urgent operative intervention today to remove the necrotic tissue and open up the wounds to minimize potential anaerobic infection problems. Will also debride down to the muscle and fascia to evaluate the need for more aggressive debridement of muscle and fascia if necrotizing process seen in the muscle and fascia. She is currently on Vancomycin and Zosyn. Her MRSA Wound DNA by PCR was positive. Discussed with the patient and her that her infection is life threatening and needs operative intervention today. Hopefully by removing the necrotic tissue, she will be able to get off the pressors postop. Anticipate some blood loss from the surgery. Will check a Hgb after surgery and she may need PRBC depending on the Hgb level. Preop she is 9.1. Patient was informed of the risks and complications of the procedure including alternatives to surgery. These were discussed with the patient personally. Patient voices understanding and wishes to proceed. She wasn't dialyzed today. Anticipate dialysis tomorrow. So will repack the wounds tomorrow and anticipate placement of the VAC on Thursday. Code Visit Inpatient E&M: 30831 Subs Hosp L3 - Modifier 57 ICD-10 - L89.219, L02.415, L89.229, L02.416, I96, M79.89, A49.02, A41.9, E11.9, N18.6
--- NOTE | 2018-08-18 12:50 | NURSING ---
Dr Allan in to assess wounds to bilateral hips. Dr Allan plans to take patient to surgery today around 2pm. patient will most likely need wound VAC post operatively. will continue to follow.
[2018-08-18 13:09] LABS: Erythrocyte Sedimentation Rate > 130 mm/hr (0-30)
--- NOTE | 2018-08-18 13:13 | PCM.PN.HOSP ---
Subjective: Patient is a 63-year-old lady admitted with recent hospitalization for cellulitis associated with decubitus ulcers involving both hips discharged to senior care facility brought to the emergency department as a result of progressive generalized malaise. Patient was first admitted to progressive care unit however in view of increasing lethargy and persistent hypotension patient was transferred to the intensive care unit as a suspected case of septic shock Objective: GENERAL: Lethargic but arousable HEENT: Atraumatic; EYES; Anicteric,jeannette NECK; supple, normal thyroid, RESPIRATORY: Diminished to auscultation bilaterally, CARDIOVASCULAR: Regular S1 S2, no audible murmurs GI: soft, non-tender, normoactive bowel sounds, : No Renal angle tenderness; EXTREMITIES: Lateral decubitus involving both hips NEURO: Unable to assess SKIN: No Rash PSYCH; unable to assess Vitals/I&O's: Vital Signs Temp Pulse Resp BP Pulse Ox 96.9 F L 108 H 23 H 75/40 L 97 08/18/18 08:40 08/18/18 11:30 08/18/18 11:30 08/18/18 11:30 08/18/18 11:30 Oxygen Flow Rate (L/min) 3 Oxygen Delivery Method Nasal Cannula Weight: 147.9 kg Body Mass Index (BMI) 59.6 Finger Stick Blood Glucose 112 Intake and Output for Last 24 Hours 08/16/18 08/17/18 08/18/18 23:59 23:59 23:59 Intake Total 150 / 150 Output Total 0 / 0 Balance 150 / 150 Microbiology Past 72 Hours 08/18/18 02:00 Wound - Hip Gram Stain - Final Laboratory Results 08/17/18 18:20: POC Glucose 53 L 08/17/18 18:30: WBC 18.5 H, RBC 3.52 L, Hgb 10.3 L, Hct 34.4 L, MCV 97.7, MCH 29.3, MCHC 29.9 L, RDW 16.9 H, RDW Differential 59.2 H, Plt Count 240, MPV 9.7, Immature Gran % (Auto) 1.600 H, Neut % (Auto) 82.5 H, Lymph % (Auto) 8.6 L, [place] % (Auto) 6.7, Eos % (Auto) 0.4, Baso % (Auto) 0.2, Absolute Neuts (auto) 15.3 H, Absolute Lymphs (auto) 1.60, Total Counted Not Reportable 08/17/18 18:30: D-Dimer Quant (PE/DVT) 1.29 H* 08/17/18 18:30: Sodium 135 L, Potassium 3.4 L, Chloride 94 L, Carbon Dioxide 32.0, Anion Gap 9, BUN 44 H, Creatinine 3.34 H, Estim Creat Clear Calc 13.28, Est GFR (MDRD) Af Amer 18 L, Est GFR (MDRD) Non-Af 15 L, BUN/Creatinine Ratio 13.2, Glucose 51 L, Calcium 9.4, Troponin I < 0.015 08/17/18 18:30: PT 16.4 H, INR 1.3, APTT 41.4 H 08/17/18 18:30: Magnesium 2.0 08/17/18 19:39: POC Glucose 112 H 08/17/18 21:05: Lactic Acid 1.5 08/17/18 21:30: POC Glucose 163 H 08/18/18 01:04: POC Glucose 143 H 08/18/18 06:05: WBC 26.4 H, RBC 3.10 L, Hgb 9.1 L, Hct 30.6 L, MCV 98.7, MCH 29.4, MCHC 29.7 L, RDW 17.0 H, RDW Differential 59.7 H, Plt Count 202, MPV 9.4, Immature Gran % (Auto) 2.100 H, Neut % (Auto) 84.1 H, Lymph % (Auto) 6.1 L, [place] % (Auto) 7.0, Eos % (Auto) 0.5, Baso % (Auto) 0.2, Absolute Neuts (auto) 22.2 H, Absolute Lymphs (auto) 1.61, Total Counted Not Reportable, Diff Path Review Reviewed, Hypochromasia 1+ 08/18/18 06:05: Sodium 134 L, Potassium 3.4 L, Chloride 95 L, Carbon Dioxide 27.0, Anion Gap 12, BUN 46 H, Creatinine 3.52 H, Estim Creat Clear Calc 12.60, Est GFR (MDRD) Af Amer 17 L, Est GFR (MDRD) Non-Af 14 L, BUN/Creatinine Ratio 13.1, Glucose 117 H, Calcium 8.9 08/18/18 06:05: ESR > 130 H 08/18/18 06:05: C-React Prot Ext Range 152.00 H 08/18/18 06:26: POC Glucose 133 H 08/18/18 08:40: POC Glucose 316 H 08/18/18 09:45: S.aureus Protein A PCR POSITIVE H, MRSA (PCR) POSITIVE H 08/18/18 10:26: Specimen Type MELODY, Sample Site OTHER, pH 7.43, Bicarbonate Actual 31.3 H, POC Total CO2 33, Base Excess 7 H, O2 Saturation 99, ABG pCO2 47.0 H, ABG pO2 132 H, O2 Delivery Device Nasal Can, Liter Flow 5.0, Blood Gas Notified Whom ICU MD, Blood Gas Notified Time 1025 08/18/18 10:30: Lactic Acid 0.9 08/18/18 12:15: POC Glucose 140 H Current Medications Acetaminophen (Tylenol) 650 mg PO Q6H PRN PRN PRN Reason: Non-cardiac pain (mod-severe) Acetaminophen (Tylenol) 1,000 mg PO Q8 [facility] Last Admin: 08/18/18 13:06 Dose: Not Given Al Hydroxide/Mg Hydroxide (Mylanta Ii) 30 ml PO Q4H PRN PRN PRN Reason: Gi DISTRESS Albuterol Sulfate (Ventolin Aerosols) 2.5 mg INHALATION Q2H PRN PRN PRN Reason: dyspnea, wheezing Albuterol/Ipratropium (Duoneb) 3 ml INHALATION Q4HWA.RT [facility] Last Admin: 08/18/18 07:20 Dose: 3 ml Amiodarone HCl (Cordarone) 200 mg PO DAILY [facility] Last Admin: 08/18/18 11:53 Dose: Not Given Aspirin (Aspirin, Baby) 81 mg PO DAILY@0800 [facility] Last Admin: 08/18/18 10:54 Dose: Not Given Bisacodyl (Dulcolax) 10 mg RECTAL DAILY PRN PRN PRN Reason: Constipation Calcium Acetate (Phoslo Gel Cap) 667 mg PO TIDCM [facility] Last Admin: 08/18/18 11:55 Dose: Not Given Dextrose (D50w Syringe) 0 gm IV X1 PRN; Protocol PRN Reason: Hypoglycemia Glucagon () 1 mg IM .X1 PRN PRN Reason: Hypoglycemia Heparin Sodium (Porcine) (Heparin Na) 5,000 unit SC Q8 [facility] Last Admin: 08/18/18 13:05 Dose: Not Given Hydralazine HCl (Apresoline Iv) 10 mg IV Q4H PRN PRN PRN Reason: SBP > 160 Sodium Chloride () 1,000 mls @ 60 mls/hr IV .[id number] [facility] Last Admin: 08/18/18 02:24 Dose: 60 mls/hr Piperacillin Sod/Tazobactam Sod (Zosyn) 3.375 gm in 50 mls @ 12.5 mls/hr IV Q12 [facility] Last Admin: 08/18/18 12:59 Dose: 12.5 mls/hr Vancomycin IV Pharmacy to Dose (1 ea/ Sodium Chloride) 500 mls @ 250 mls/hr IV PRN PRN; Protocol PRN Reason: Rx to Dose Norepinephrine Bitartrate 8 mg (/ Dextrose) 258 mls @ 9.68 mls/hr IV .[id number] [facility] Last Admin: 08/18/18 09:15 Dose: 9.68 mls/hr Vasopressin 40 units/ Sodium (Chloride) 52 mls @ 3.12 mls/hr IV .[id number] [facility] Last Admin: 08/18/18 12:07 Dose: 3.12 mls/hr Insulin Glargine (Lantus (Bkc)) 12 units SC QHS [facility] Last Admin: 08/18/18 01:08 Dose: 12 units Insulin Human Lispro (Humalog Kwikpen (Bkc)) 0 unit SC ACHS [facility]; Protocol Last Admin: 08/18/18 12:16 Dose: Not Given Insulin Human Lispro (Humalog Kwikpen (Bkc)) 4 unit SC TIDAC [facility] Last Admin: 08/18/18 12:16 Dose: Not Given Levothyroxine Sodium (Synthroid) 25 mcg PO DAILY@0600 [facility] Last Admin: 08/18/18 06:50 Dose: 25 mcg Magnesium Hydroxide (Milk Of Magnesia) 30 ml PO DAILY PRN PRN Reason: Constipation Midodrine (Proamatine) 10 mg PO TID [facility] Last Admin: 08/18/18 13:06 Dose: Not Given Montelukast Sodium (Singulair) 10 mg PO QHS [facility] Last Admin: 08/18/18 00:56 Dose: 10 mg Nutritional Formula (Maykel - Duval Flavor) 1 packet PO BID [facility] Last Admin: 08/18/18 11:53 Dose: Not Given Nutritional Formula (Lactose Free) (Glucerna Shake) 120 ml PO 4X/DAY [facility] Last Admin: 08/18/18 13:05 Dose: Not Given Nystatin (Mycostatin Powder) 1 applic TOPICAL TID [facility]; Protocol Last Admin: 08/18/18 13:05 Dose: Not Given Ondansetron HCl (Zofran) 4 mg IV Q8H PRN PRN PRN Reason: NAUSEA Pantoprazole Sodium (Protonix) 20 mg PO DAILY [facility] Last Admin: 08/18/18 11:54 Dose: Not Given Polyethylene Glycol (Miralax) 17 gm PO QHS [facility] Last Admin: 08/18/18 00:29 Dose: Not Given Pramipexole Dihydrochloride (Mirapex) 1 mg PO QHS [facility] Last Admin: 08/18/18 00:58 Dose: 1 mg Pramipexole Dihydrochloride (Mirapex) 0.5 mg PO DAILY [facility] Last Admin: 08/18/18 11:54 Dose: Not Given Sertraline HCl (Zoloft) 50 mg PO DAILY [facility] Last Admin: 08/18/18 11:54 Dose: Not Given Sodium Chloride () 5 - 15 ml IV UD PRN PRN Reason: SALINE FLUSH Sodium Hypochlorite (Dakins Solution 0.25% (1/2 Strength)) 1 applic TOPICAL BID [facility]; Protocol Last Admin: 08/18/18 12:43 Dose: Not Given Tramadol HCl (Ultram) 50 mg PO Q12H PRN PRN Reason: PAIN Medical Necessity - Tobacco Use Smoking Status: Former smoker Tobacco Use: Non-smoker Assessment/Plan All Active Problems (Last Reviewed 09/09/17 @ 15:25 by Padmini Mitchell) Cellulitis of left hip (Acute) ESR raised (Acute) Clostridium difficile enterocolitis (Resolved) C. difficile colitis (Resolved) Hyperkalemia (Resolved) MRSA (methicillin resistant Staphylococcus aureus) infection (Resolved) Pseudomonas aeruginosa infection (Resolved) infected ischial tuberosity ulcer (Resolved) Patient is a 63-year-old lady admitted with recent hospitalization for cellulitis associated with decubitus ulcers involving both hips discharged to senior care facility brought to the emergency department as a result of progressive generalized malaise. Patient was first admitted to progressive care unit however in view of increasing lethargy and persistent hypotension patient was transferred to the intensive care unit as a suspected case of septic shock 1. Septic shock secondary to bilateral decubitus ulcers with surrounding areas of cellulitis. Patient admitted to the intensive care unit treatment initiated per protocol does not broad-spectrum antibiotic therapy with Zosyn and vancomycin, IV fluid resuscitation and consult placed to Dr. Herrera with pulmonary/critical care Case discussed with team 2. Acute metabolic encephalopathy 3. End-stage renal disease patient is on dialysis ~ Mondays, Wednesdays and Fridays so it was placed to nephrology for dialysis orders 4. 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 Did continue with patient home regimen 5. Hypertension-medications held in view of patient's hypotension 6. Dyslipidemia per history patient apparently has allergy to statins 7. Morbid obesity with BMI of 59.6 8. Pulmonary hypertension secondary to obesity, GRAEME on supplemental oxygen and nocturnal BiPAP 9. Hypothyroidism-patient is on levothyroxine home dose continued 10. Chronic A. fib rate controlled not on systemic anticoagulation due to significant risk for falls 11. Conduction system disorder status post pacemaker placement 12. RLS -- Mirapex at HS 13. DVT prophylaxis: On SCD. Active Medications Acetaminophen (Tylenol) 650 mg PO Q6H PRN PRN PRN Reason: Non-cardiac pain (mod-severe) Acetaminophen (Tylenol) 1,000 mg PO Q8 [facility] Last Admin: 08/18/18 13:06 Dose: Not Given Al Hydroxide/Mg Hydroxide (Mylanta Ii) 30 ml PO Q4H PRN PRN PRN Reason: Gi DISTRESS Albuterol Sulfate (Ventolin Aerosols) 2.5 mg INHALATION Q2H PRN PRN PRN Reason: dyspnea, wheezing Albuterol/Ipratropium (Duoneb) 3 ml INHALATION Q4HWA.RT [facility] Last Admin: 08/18/18 07:20 Dose: 3 ml Amiodarone HCl (Cordarone) 200 mg PO DAILY [facility] Last Admin: 08/18/18 11:53 Dose: Not Given Aspirin (Aspirin, Baby) 81 mg PO DAILY@0800 [facility] Last Admin: 08/18/18 10:54 Dose: Not Given Bisacodyl (Dulcolax) 10 mg RECTAL DAILY PRN PRN PRN Reason: Constipation Calcium Acetate (Phoslo Gel Cap) 667 mg PO TIDCM [facility] Last Admin: 08/18/18 11:55 Dose: Not Given Dextrose (D50w Syringe) 0 gm IV X1 PRN; Protocol PRN Reason: Hypoglycemia Glucagon () 1 mg IM .X1 PRN PRN Reason: Hypoglycemia Heparin Sodium (Porcine) (Heparin Na) 5,000 unit SC Q8 [facility] Last Admin: 08/18/18 13:05 Dose: Not Given Hydralazine HCl (Apresoline Iv) 10 mg IV Q4H PRN PRN PRN Reason: SBP > 160 Sodium Chloride () 1,000 mls @ 60 mls/hr IV .[id number] [facility] Last Admin: 08/18/18 02:24 Dose: 60 mls/hr Piperacillin Sod/Tazobactam Sod (Zosyn) 3.375 gm in 50 mls @ 12.5 mls/hr IV Q12 [facility] Last Admin: 08/18/18 12:59 Dose: 12.5 mls/hr Vancomycin IV Pharmacy to Dose (1 ea/ Sodium Chloride) 500 mls @ 250 mls/hr IV PRN PRN; Protocol PRN Reason: Rx to Dose Norepinephrine Bitartrate 8 mg (/ Dextrose) 258 mls @ 9.68 mls/hr IV .[id number] [facility] Last Admin: 08/18/18 09:15 Dose: 9.68 mls/hr Vasopressin 40 units/ Sodium (Chloride) 52 mls @ 3.12 mls/hr IV .[id number] [facility] Last Admin: 08/18/18 12:07 Dose: 3.12 mls/hr Insulin Glargine (Lantus (Bkc)) 12 units SC QHS [facility] Last Admin: 08/18/18 01:08 Dose: 12 units Insulin Human Lispro (Humalog Kwikpen (Bkc)) 0 unit SC ACHS [facility]; Protocol Last Admin: 08/18/18 12:16 Dose: Not Given Insulin Human Lispro (Humalog Kwikpen (Bkc)) 4 unit SC TIDAC [facility] Last Admin: 08/18/18 12:16 Dose: Not Given Levothyroxine Sodium (Synthroid) 25 mcg PO DAILY@0600 [facility] Last Admin: 08/18/18 06:50 Dose: 25 mcg Magnesium Hydroxide (Milk Of Magnesia) 30 ml PO DAILY PRN PRN Reason: Constipation Midodrine (Proamatine) 10 mg PO TID [facility] Last Admin: 08/18/18 13:06 Dose: Not Given Montelukast Sodium (Singulair) 10 mg PO QHS [facility] Last Admin: 08/18/18 00:56 Dose: 10 mg Nutritional Formula (Maykel - [place] Flavor) 1 packet PO BID [facility] Last Admin: 08/18/18 11:53 Dose: Not Given Nutritional Formula (Lactose Free) (Glucerna Shake) 120 ml PO 4X/DAY [facility] Last Admin: 08/18/18 13:05 Dose: Not Given Nystatin (Mycostatin Powder) 1 applic TOPICAL TID [facility]; Protocol Last Admin: 08/18/18 13:05 Dose: Not Given Ondansetron HCl (Zofran) 4 mg IV Q8H PRN PRN PRN Reason: NAUSEA Pantoprazole Sodium (Protonix) 20 mg PO DAILY [facility] Last Admin: 08/18/18 11:54 Dose: Not Given Polyethylene Glycol (Miralax) 17 gm PO QHS [facility] Last Admin: 08/18/18 00:29 Dose: Not Given Pramipexole Dihydrochloride (Mirapex) 1 mg PO QHS [facility] Last Admin: 08/18/18 00:58 Dose: 1 mg Pramipexole Dihydrochloride (Mirapex) 0.5 mg PO DAILY [facility] Last Admin: 08/18/18 11:54 Dose: Not Given Sertraline HCl (Zoloft) 50 mg PO DAILY [facility] Last Admin: 08/18/18 11:54 Dose: Not Given Sodium Chloride () 5 - 15 ml IV UD PRN PRN Reason: SALINE FLUSH Sodium Hypochlorite (Dakins Solution 0.25% (1/2 Strength)) 1 applic TOPICAL BID [facility]; Protocol Last Admin: 08/18/18 12:43 Dose: Not Given Tramadol HCl (Ultram) 50 mg PO Q12H PRN PRN Reason: PAIN Clinical Impression(s) from Imaging Studies Chest X-Ray 08/17/18 18:57 IMPRESSION: Cardiomegaly with vascular congestion, similar to prior. at 1951 Reported and signed by: Ismael Lemos MD Electronically Signed: Ismael Lemos, at 19:50 EST Tel , Service support , Chest CTA 08/17/18 20:11 IMPRESSION: No demonstrated pulmonary embolism, aneurysm, leak or arterial dissection. Mild emphysema, scarring in the lung bases, resolution of previous airspace disease. No pulmonary edema, congestive heart failure or confluent pneumonia. Stable cardiac enlargement, atherosclerosis, postsurgical changes, degenerative changes, obesity, hepatomegaly and hepatic steatosis suspected, remote granulomatous exposure. Electronically Signed: Taylor Delgado MD at 23:10 EST , Service support , Code Visit Inpatient E&M: 04392 Subs Hosp L3
--- NOTE | 2018-08-18 14:33 | CON.PCM_ITS ---
Problem List (1) Septic shock Status: Acute Reason for Consult: septic shock Consulted by: Dr. Herrera History of Present Illness: The patient is a 63 year old F with ESRD and morbid obesity who presented yesterday with several weeks of not feeling well, weakness, and large painful decubitus ulcers over hips. Denies any issues with AV fistula. No fever, some chills, no abd pain. No outpt abx. Has not missed any HD sessions. Came to ED, BP was 54/42, given vanc/clinda/zosyn, admitted to icu, remains on max dose of 2 pressors. Per nursing, R ulcer is large, foul smelling, necrotic. Pt reports pain is severe, constant. Full ROS performed and neg except as noted above. - Medical History Past Medical History (Chronic Problems): Chronic Problems (Last Reviewed 09/09/17 @ 15:25 by Padmini Mitchell) Chronic obstructive pulmonary disease (COPD) (Chronic) GRAEME (obstructive sleep apnea) (Chronic) non-compliant with CPAP Diabetes mellitus, type II (Chronic) Decubitus ulcer of left hip, stage 2 (Chronic) Decubitus ulcer of right hip, stage 2 (Chronic) Super obesity (Chronic) Anemia in chronic kidney disease (Chronic) Excessive dietary caloric intake (Chronic) Paroxysmal atrial fibrillation (Chronic) Cardiac pacemaker in situ (Chronic ~02/23/14) Hypertension (Chronic) Carotid bruit (Chronic) Tachycardia-bradycardia syndrome (Chronic) History of depression (Chronic) HLD (hyperlipidemia) (Chronic) Biatrial enlargement (Chronic) Pulmonary HTN (Chronic) ESRD (end stage renal disease) on dialysis (Chronic) Contusion of right lower leg (Chronic) Resulting in a nonhealing wound Right lower leg eschar (Chronic) Decubitus ulcer of ankle, stage 2 (Chronic) infected ischial tuberosity ulcer (Chronic) Allergies/Adverse Reactions: Allergies cyclobenzaprine [From Flexeril] Allergy (Verified 08/17/18 18:00) Other oxycodone Allergy (Verified 08/17/18 18:00) Other rosuvastatin calcium [From Crestor] Allergy (Verified 08/17/18 18:00) Unknown Patient stated that she does not remember, it has been so long ago. Penicillins Adverse Reaction (Verified 08/17/18 18:00) Unknown GETS YEAST INFECTION prednisone Adverse Reaction (Verified 08/17/18 18:00) Other SENDS BLOOD SUGARS HIGH simvastatin Adverse Reaction (Verified 08/17/18 18:00) Unknown FEELS FUNNY Home Medications: Ambulatory Orders Medication Instructions Recorded Amiodarone HCl [Cordarone] 200 mg PO DAILY 02/14/17 Aspirin [Aspirin, Baby] 81 mg PO DAILY@0800 02/14/17 Benzonatate [Tessalon Perle] 100 mg PO PRN PRN 02/14/17 Bisacodyl [Dulcolax] 10 mg RECTAL PRN PRN 02/14/17 Calcium Acetate 667 mg PO TIDCM 02/14/17 Dextrose [Glucose Gel] 38 gm PO PRN PRN 02/14/17 Glucagon,Human Recombinant 1 mg IJ PRN PRN 02/14/17 [Glucagon Emergency Kit] Insulin Lispro [Humalog] 4 unit SQ TIDCM 02/14/17 Magnesium Hydroxide [Milk Of 30 ml PO DAILY PRN PRN 02/14/17 Magnesia] Meloxicam [Mobic] 7.5 mg PO DAILY 02/14/17 Montelukast [Singulair] 10 mg PO QHS 02/14/17 Na Phos,M-B/Na Phos,Di-Ba [Fleet 1 bottle RECTAL PRN PRN 02/14/17 Enema] Sertraline HCl [Zoloft] 50 mg PO DAILY 02/14/17 Cholecalciferol (Vitamin D3) 2,000 unit PO DAILY 08/02/18 [Vitamin D3] Fluticasone 110 Mcg [Flovent 110 1 puff INHALATION BID 08/02/18 Mcg] Insulin Glargine [Lantus SoloStar 12 units SC QHS 08/02/18 Pen] Insulin Lispro [Humalog] See Protocol SQ ACHS 08/02/18 Lactobacillus Rhamnosus GG 1 mg PO DAILY 08/02/18 [Culturelle] Levothyroxine [Synthroid] 25 mcg PO DAILY 08/02/18 Mag Hydrox/Aluminum Hyd/Simeth 30 ml PO Q4H PRN PRN 08/02/18 [Antacid Suspension] Midodrine HCl 10 mg PO TID 08/02/18 Omeprazole 20 mg PO DAILY 08/02/18 Polyethylene Glycol 3350 [Miralax] 17 gm PO QHS 08/02/18 Pramipexole Di-HCl [Mirapex] 0.5 mg PO DAILY 08/02/18 Pramipexole Di-HCl [Mirapex] 1 mg PO QHS 08/02/18 traMADol [Ultram] 50 mg PO Q8H PRN PRN 08/02/18 Acetaminophen [Tylenol] 1,000 mg PO Q8 tablet 08/06/18 Glucerna Shake 120 ml PO 4X/DAY liquid 08/06/18 Argin/Glut/Cahmb/Collag/Mv-Min 1 pack PO BID 08/17/18 [Maykel Packet] Ascorbic Acid 500 mg PO DAILY 08/17/18 Collagenase [Santyl] 1 applic TP DAILY 08/17/18 Metoprolol Tartrate 12.5 mg PO BID 08/17/18 Multivit,Stress Formula/Zinc 1 tab PO DAILY 08/17/18 [Stress Formula with Zinc Tab] Multivit,Tx with Iron,Minerals 1 tab PO DAILY 08/17/18 [Thera-M] - Social History SMOKING STATUS:: Former smoker Vital Signs Temp Pulse Resp BP Pulse Ox 98.0 F 141 H 24 H 84/51 L 100 08/18/18 12:00 08/18/18 14:00 08/18/18 14:00 08/18/18 14:00 08/18/18 14:00 Oxygen Flow Rate (L/min) 3 Oxygen Delivery Method Nasal Cannula Weight: 147.9 kg Body Mass Index (BMI) 59.6 Finger Stick Blood Glucose 112 Microbiology Past 72 Hours 08/18/18 02:00 Gram Stain - Final Wound - Hip Laboratory Tests Past 24 Hrs 08/17/18 08/17/18 08/17/18 18:30 18:30 18:30 WBC 18.5 H RBC 3.52 L Hgb 10.3 L Hct 34.4 L MCV 97.7 MCH 29.3 MCHC 29.9 L RDW 16.9 H RDW Differential 59.2 H Plt Count 240 MPV 9.7 Immature Gran % (Auto) 1.600 H Neut % (Auto) 82.5 H Lymph % (Auto) 8.6 L [place] % (Auto) 6.7 Eos % (Auto) 0.4 Baso % (Auto) 0.2 Absolute Neuts (auto) 15.3 H Absolute Lymphs (auto) 1.60 Total Counted Not Reportable Diff Path Review Hypochromasia ESR PT INR APTT D-Dimer Quant (PE/DVT) 1.29 H* Specimen Type Sample Site pH Bicarbonate Actual POC Total CO2 Base Excess O2 Saturation ABG pCO2 ABG pO2 O2 Delivery Device Liter Flow Blood Gas Notified Whom Blood Gas Notified Time Sodium 135 L Potassium 3.4 L Chloride 94 L Carbon Dioxide 32.0 Anion Gap 9 BUN 44 H Creatinine 3.34 H Estim Creat Clear Calc 13.28 Est GFR (MDRD) Af Amer 18 L Est GFR (MDRD) Non-Af 15 L BUN/Creatinine Ratio 13.2 Glucose 51 L Lactic Acid Calcium 9.4 Magnesium Troponin I < 0.015 C-React Prot Ext Range S.aureus Protein A PCR MRSA (PCR) 08/17/18 08/17/18 08/17/18 18:30 18:30 21:05 WBC RBC Hgb Hct MCV MCH MCHC RDW RDW Differential Plt Count MPV Immature Gran % (Auto) Neut % (Auto) Lymph % (Auto) [place] % (Auto) Eos % (Auto) Baso % (Auto) Absolute Neuts (auto) Absolute Lymphs (auto) Total Counted Diff Path Review Hypochromasia ESR PT 16.4 H INR 1.3 APTT 41.4 H D-Dimer Quant (PE/DVT) Specimen Type Sample Site pH Bicarbonate Actual POC Total CO2 Base Excess O2 Saturation ABG pCO2 ABG pO2 O2 Delivery Device Liter Flow Blood Gas Notified Whom Blood Gas Notified Time Sodium Potassium Chloride Carbon Dioxide Anion Gap BUN Creatinine Estim Creat Clear Calc Est GFR (MDRD) Af Amer Est GFR (MDRD) Non-Af BUN/Creatinine Ratio Glucose Lactic Acid 1.5 Calcium Magnesium 2.0 Troponin I C-React Prot Ext Range S.aureus Protein A PCR MRSA (PCR) 08/18/18 08/18/18 08/18/18 06:05 06:05 06:05 WBC 26.4 H RBC 3.10 L Hgb 9.1 L Hct 30.6 L MCV 98.7 MCH 29.4 MCHC 29.7 L RDW 17.0 H RDW Differential 59.7 H Plt Count 202 MPV 9.4 Immature Gran % (Auto) 2.100 H Neut % (Auto) 84.1 H Lymph % (Auto) 6.1 L [place] % (Auto) 7.0 Eos % (Auto) 0.5 Baso % (Auto) 0.2 Absolute Neuts (auto) 22.2 H Absolute Lymphs (auto) 1.61 Total Counted Not Reportable Diff Path Review Reviewed Hypochromasia 1+ ESR > 130 H PT INR APTT D-Dimer Quant (PE/DVT) Specimen Type Sample Site pH Bicarbonate Actual POC Total CO2 Base Excess O2 Saturation ABG pCO2 ABG pO2 O2 Delivery Device Liter Flow Blood Gas Notified Whom Blood Gas Notified Time Sodium 134 L Potassium 3.4 L Chloride 95 L Carbon Dioxide 27.0 Anion Gap 12 BUN 46 H Creatinine 3.52 H Estim Creat Clear Calc 12.60 Est GFR (MDRD) Af Amer 17 L Est GFR (MDRD) Non-Af 14 L BUN/Creatinine Ratio 13.1 Glucose 117 H Lactic Acid Calcium 8.9 Magnesium Troponin I C-React Prot Ext Range S.aureus Protein A PCR MRSA (PCR) 08/18/18 08/18/18 08/18/18 06:05 09:45 10:26 WBC RBC Hgb Hct MCV MCH MCHC RDW RDW Differential Plt Count MPV Immature Gran % (Auto) Neut % (Auto) Lymph % (Auto) [place] % (Auto) Eos % (Auto) Baso % (Auto) Absolute Neuts (auto) Absolute Lymphs (auto) Total Counted Diff Path Review Hypochromasia ESR PT INR APTT D-Dimer Quant (PE/DVT) Specimen Type MELODY Sample Site OTHER pH 7.43 Bicarbonate Actual 31.3 H POC Total CO2 33 Base Excess 7 H O2 Saturation 99 ABG pCO2 47.0 H ABG pO2 132 H O2 Delivery Device Nasal Can Liter Flow 5.0 Blood Gas Notified Whom ICU MD Blood Gas Notified Time 1025 Sodium Potassium Chloride Carbon Dioxide Anion Gap BUN Creatinine Estim Creat Clear Calc Est GFR (MDRD) Af Amer Est GFR (MDRD) Non-Af BUN/Creatinine Ratio Glucose Lactic Acid Calcium Magnesium Troponin I C-React Prot Ext Range 152.00 H S.aureus Protein A PCR POSITIVE H MRSA (PCR) POSITIVE H 08/18/18 10:30 WBC RBC Hgb Hct MCV MCH MCHC RDW RDW Differential Plt Count MPV Immature Gran % (Auto) Neut % (Auto) Lymph % (Auto) [place] % (Auto) Eos % (Auto) Baso % (Auto) Absolute Neuts (auto) Absolute Lymphs (auto) Total Counted Diff Path Review Hypochromasia ESR PT INR APTT D-Dimer Quant (PE/DVT) Specimen Type Sample Site pH Bicarbonate Actual POC Total CO2 Base Excess O2 Saturation ABG pCO2 ABG pO2 O2 Delivery Device Liter Flow Blood Gas Notified Whom Blood Gas Notified Time Sodium Potassium Chloride Carbon Dioxide Anion Gap BUN Creatinine Estim Creat Clear Calc Est GFR (MDRD) Af Amer Est GFR (MDRD) Non-Af BUN/Creatinine Ratio Glucose Lactic Acid 0.9 Calcium Magnesium Troponin I C-React Prot Ext Range S.aureus Protein A PCR MRSA (PCR) - Other Studies Radiology: [] reviewed Other Studies: [] Route of nutrition/ use of supplements: [] Nutritional Intake: [] IV Site: [] Díaz Catheter: [] - Physical Exam General: Alert, Oriented x3, Cooperative, - - ill appearing HEENT: Atraumatic, PERRLA, EOMI Neck: Supple, No Nodes Lungs: Clear to auscultation, Normal air movement, Diminished Cardiovascular: Murmur, Tachycardic Abdomen: Soft, Non Tender, Non-Distended, Obese Extremities: Edema Skin: Ulcer/ Wound - bilateral hips/pelvis IV Site: Central Line, without redness Musculoskeletal: No Tenderness to Palpation of Joints or Extremities Neurological: Cranial nerves II-XII grossly intact - Assessment/Plan Antibiotics: [] Assessment/Plan: [] septic shock - remains hypotensive despite 2 pressors. Cxs pending. MRSA pcr (+). Going to OR today with Dr. Allan for debridement. Continue vanc/zosyn, will restart clinda for anti-toxin effect with possible necrotizing fasciitis. Will follow, thank you, d/w Dr. Herrera and nursing.
--- NOTE | 2018-08-18 15:00 | NURSING ---
To OR via bed w/ OR staff
--- NOTE | 2018-08-18 17:13 | OP.PN_ITS ---
Immediate Post-Op Note Date of Procedure: 08/18/18 Primary Surgeon/Physician: Darinel Allan MD prototype fabricator: None Pre-Operative Diagnosis: 1. Necrotic pressure injury MRSA abscess bilateral hips/lateral thighs. 2. MRSA. 3. Sepsis. 4. Diabetes mellitus. 5. ESRD with dialysis. Post-Operative Diagnosis: 1. Necrotizing pressure injury MRSA abscess bilateral hips/lateral thighs. 2. MRSA. 3. Sepsis. 4. Diabetes mellitus. 5. ESRD with dialysis. Surgery/Procedure Performed:: 1. Surgical preparation left hip/lateral thigh with incision and drainage and excisional debridement necrotizing pressure injury MRSA abscess (273 cm2). 2. Surgical preparation right hip/lateral thigh with incision and drainage and excisional debridement necrotizing pressure injury MRSA abscess (360 cm2). Description of Surgical Findings:: The patient is a 63 year old F with a history of diabetes mellitus and ESRD on dialysis was admitted to the hospital with increased fatigue, weakness, malaise in addition to worsened primarily left hip wound redness with foul odor drainage. Patient states she developed pressure injuries to her bilateral hip/lateral thigh areas because she would sit in a wheelchair that was too small for her and she would be in the chair for up to 4 hours during her dialysis. She developed worsening necrosis in the area of the pressure injury with foul odor and drainage. Dakin's dressing changes were started to help with the odor. Initially her WBC was 18.5 and today it has increased to 26.4. She is on Vancomycin and Zosyn. MRSA Wound DNA by PCR was positive. This morning she was hypotensive and placed on pressors and transferred to the ICU. I was asked to evaluate this patient for surgical options for treatment. Discussed with the patient that urgent surgical intervention was needed today as soon as possible because the risk of worsening infection with necrotizing process, sepsis, and . She voiced understanding and wished to proceed. Today the patient underwent surgical preparation left hip/lateral thigh with incision and drainage and excisional debridement necrotizing pressure injury MRSA abscess (273 cm2) and surgical preparation right hip/lateral thigh with incision and drainage and excisional debridement necrotizing pressure injury MRSA abscess (360 cm2). The tensor fascia neha was inflamed and looked viable without clinical evidence of necrotizing process at this time. The underlying vastus lateralis muscle appeared viable and not necrotic at this time. Size of defect left hip/lateral thigh - 21 x 13 x11 cm. Size of defect right hip/lateral thigh - 24 x 15 x 11 cm. Estimated Blood Loss: 400 ml. Specimen's removed: 1. Left hip/lateral thigh necrotizing pressure injury MRSA abscess to Pathology and Microbiology. 2. Right hip/lateral thigh necrotizing pressure injury MRSA abscess to Pathology and Microbiology. Drains: None. Type of Anesthesia:: General - Admit VTE Documentation VTE Present on Admission: No VTE Mechan Device Prophylaxis: SCD's VTE Pharm Prophylaxis ordered?: Yes
--- NOTE | 2018-08-18 17:42 | CPS ---
Pt returned from surgery, intubated and was placed on vent.
--- NOTE | 2018-08-18 18:12 | RAD_ITS ---
STUDY: X-RAY CHEST REASON FOR EXAM: Female, 63 years old. Endotracheal tube placement. TECHNIQUE: Single AP portable view of the chest. COMPARISON: August 18, 2018 (1226 hours). FINDINGS: There is now an endotracheal tube with its tip 1.4 cm above the kasia. This could be pulled back 1 cm. There is a stable right jugular central venous catheter. Stable right-sided cardiac pacemaker. There is a limited inspiratory effort. There is no new infiltrate or mass within the lungs. The degree of vascular congestion seen on the prior study has decreased. There is no demonstrated pleural abnormality. There is moderate cardiomegaly. There is no change in the mediastinum, dulce maria, pulmonary arteries or aorta. The thoracic spine is obscured by the mediastinum. There is degenerative osteoarthritis of the bilateral shoulders. There is no demonstrated abnormality of the visualized soft tissue structures of the upper abdomen. RAD/Chest 1 View (Portable) IMPRESSION: 1. Endotracheal tube as described. This could be pulled back 1 cm. 2. Decreased inspiratory effort. There appears to be a decrease in the degree of vascular congestion when compared to the prior study. 3. No other interval change. Electronically Signed: Gregorio Cervantes DO at 18:40 EST Tel [phone], Service support ,
[2018-08-18] MEDS: fentaNYL drip 100 ML 5 MCG IV (18:16)
[2018-08-18 19:11] LABS: Base Excess 2 mmol/L (-2 to +2); Bicarbonate 27.1 mmol/L (22-26); Blood Gas Specimen Type ALINE; FI02 50; Mode A-C; O2 Delivery Device Vent; PEEP 5; PO2 136 mmHG (75-100); RR 14; SITE OTHER; SO2 99 % (95-99); Time Given 1900; Total Carbon Dioxide 28 mmol/L; Vt 450; pCO2 43.7 mmHg (35-45)
--- NOTE | 2018-08-18 19:25 | PCM.OPRPT ---
Report of Operation Date of Procedure: 08/18/18 Pre-Operative Diagnosis: 1. Necrotic pressure injury MRSA abscess bilateral hips/lateral thighs. 2. MRSA. 3. Sepsis. 4. Diabetes mellitus. 5. ESRD with dialysis. Post-Operative Diagnosis: 1. Necrotizing pressure injury MRSA abscess bilateral hips/lateral thighs. 2. MRSA. 3. Sepsis. 4. Diabetes mellitus. 5. ESRD with dialysis. Surgery/Procedure Performed:: 1. Surgical preparation left hip/lateral thigh with incision and drainage and excisional debridement necrotizing pressure injury MRSA abscess (273 cm2). 2. Surgical preparation right hip/lateral thigh with incision and drainage and excisional debridement necrotizing pressure injury MRSA abscess (360 cm2). Description of Surgical Findings:: The patient is a 63 year old F with a history of diabetes mellitus and ESRD on dialysis was admitted to the hospital with increased fatigue, weakness, malaise in addition to worsened primarily left hip wound redness with foul odor drainage. Patient states she developed pressure injuries to her bilateral hip/lateral thigh areas because she would sit in a wheelchair that was too small for her and she would be in the chair for up to 4 hours during her dialysis. She developed worsening necrosis in the area of the pressure injury with foul odor and drainage. Dakin's dressing changes were started to help with the odor. Initially her WBC was 18.5 and today it has increased to 26.4. She is on Vancomycin and Zosyn. MRSA Wound DNA by PCR was positive. This morning she was hypotensive and placed on pressors and transferred to the ICU. I was asked to evaluate this patient for surgical options for treatment. Discussed with the patient that urgent surgical intervention was needed today as soon as possible because the risk of worsening infection with necrotizing process, sepsis, and . Patient was informed of the risks and complications of the procedure including alternatives to surgery. These were discussed with the patient personally. Patient voices understanding and wishes to proceed. The tensor fascia neha was inflamed and looked viable without clinical evidence of necrotizing process at this time. The underlying vastus lateralis muscle appeared viable and not necrotic at this time. Size of defect left hip/lateral thigh - 21 x 13 x11 cm. Size of defect right hip/lateral thigh - 24 x 15 x 11 cm. chief bank examiner: None Type of Anesthesia:: General Specimen's removed: 1. Left hip/lateral thigh necrotizing pressure injury MRSA abscess to Pathology and Microbiology. 2. Right hip/lateral thigh necrotizing pressure injury MRSA abscess to Pathology and Microbiology. Drains: None. Estimated Blood Loss (mL): 400 ml. Description of Procedure: Patient was taken to OR in supine position and was placed under general anesthesia. The hips and thighs were prepped and draped in the usual fashion. Due to her large size, I placed saline bags underneath her hips to get better exposure of the infected areas while still maintaining a supine position. The right hip/lateral thigh area was prepped first. When completed, the saline bags were removed from the right side and placed underneath her left hips in order to debride the left side which was prepped and draped separately after the right side was completed. SCD's were placed for DVT prophylaxis. Perioperative antibiotics were given intravenously. I then proceeded with incision and drainage of her right sided infection. There was a lot of fat necrosis in the subcutaneous tissue with some creamy pus. Brisk bleeding was noted that was controlled with electrocautery. Because of the skin necrosis and underlying induration and necrotizing process in the subcutaneous tissue, extensive excisional debridement was done down to the muscle and fascia. The tensor fascia neha appeared slightly inflamed and viable. No bubbling brownish grayish fluid was seen that would suggest necrotizing fasciitis. The underlying vastus lateralis muscle appeared viable with no evidence of necrosis. The wound was irrigated with saline. Hemostasis was obtained with electrocautery. Some of the tissue was sent to Microbiology for culture. The rest of the tissue was sent to Pathology for analysis. The size of the defect right hip/lateral thigh after incision and drainage and excisional debridement was 24 x 15 x 11 cm or 360 cm2. The wound was dressed with Mepitel nonadherent dressing followed by Kerlix gauze and Betadine followed by dry Kerlix gauze and ABD pads followed by a compression SHEREE wrap. I used 5 Kerlix rolls for the packing. I then proceeded to the left side after a separate prep and drape. I then proceeded with incision and drainage of her left sided infection. There was a lot of fat necrosis in the subcutaneous tissue with some creamy pus. Brisk bleeding was noted that was controlled with electrocautery. Because of the skin necrosis and underlying induration and necrotizing process in the subcutaneous tissue, extensive excisional debridement was done down to the muscle and fascia. The tensor fascia neha appeared slightly inflamed and viable. No bubbling brownish grayish fluid was seen that would suggest necrotizing fasciitis. The underlying vastus lateralis muscle appeared viable with no evidence of necrosis. The wound was irrigated with saline. Hemostasis was obtained with electrocautery. Some of the tissue was sent to Microbiology for culture. The rest of the tissue was sent to Pathology for analysis. The size of the defect left hip/lateral thigh after incision and drainage and excisional debridement was 21 x 13 x 11 cm or 273 cm2. The wound was dressed with Mepitel nonadherent dressing followed by Kerlix gauze and Betadine followed by dry Kerlix gauze and ABD pads followed by a compression SHEREE wrap. I used 5 Kerlix rolls for the packing. Patient tolerated the procedure reasonably well and was sent directly to PACU in serious condition. She was kept intubated. There was about 400 ml of blood loss. Will check a Hgb and if it drops below 8 will plan on PRBC transfusion at the time of her dialysis. Anticipate dialysis tomorrow so will repack the wounds with Betadine dressing and will plan on the VAC placement the next day on Thursday. Grafts/Implants Used: None. - Complications None. - Admit VTE Documentation VTE Present on Admission: No VTE Mechan Device Prophylaxis: SCD's VTE Pharm Prophylaxis ordered?: Yes Code Visit Surgery Charges CPT - 11766 ICD-10 - L89.219, L02.415, I96, M79.89, A49.02, A41.9, E11.9, N18.6 69119 S81.801A, L89.219, L02.415, I96, M79.89, A49.02, A41.9, E11.9, N18.6 81410 S81.801A, L89.219, L02.415, I96, M79.89, A49.02, A41.9, E11.9, N18.6 53696 S81.801A, L89.219, L02.415, I96, M79.89, A49.02, A41.9, E11.9, N18.6 46617 S81.801A, L89.219, L02.415, I96, M79.89, A49.02, A41.9, E11.9, N18.6 38696 L89.229, L02.416, I96, M79.89, A49.02, A41.9, E11.9, N18.6 15069 S81.802A, L89.229, L02.416, I96, M79.89, A49.02, A41.9, E11.9, N18.6 24768 S81.802A, L89.229, L02.416, I96, M79.89, A49.02, A41.9, E11.9, N18.6 31843 S81.802A, L89.229, L02.416, I96, M79.89, A49.02, A41.9, E11.9, N18.6
--- NOTE | 2018-08-18 20:30 | RAD_ITS ---
HISTORY: OG PLACEMENT EXAM/TECHNIQUE: XR Abdomen 1 View: COMPARISON: None. FINDINGS: # of images incl. paperwork: 2 Enteric tube tip in the proximal stomach directed to the left in the left upper abdomen. Consider advancing 8 to 9 cm and the more distal stomach and repeating radiograph. No apparent free air. Implanted cardiac device and cardiomegaly partially visible. RAD/Abdomen Single View (Portable) IMPRESSION: Enteric tube tip in the proximal stomach directed to the left in the left upper abdomen. Consider advancing 8 to 9 cm and the more distal stomach and repeating radiograph. at 2056 Reported and signed by: Ismael Lemos MD Electronically Signed: Ismael Lemos, at 20:54 EST Tel , Service support ,
--- NOTE | 2018-08-18 20:30 | RAD_ITS ---
HISTORY: ET TUBE PLACEMENT EXAM/TECHNIQUE: XR Chest 1 View: COMPARISON: 08/18/18 chest radiograph at 6:15 PM. FINDINGS: # of images incl. paperwork: 1 Endotracheal tube tip more proximal in the thoracic trachea compared to the previous study. Tip now 5 cm above the kasia. No apparent pneumothorax. Low lung volumes with coarse interstitial prominence. Calcified granuloma left upper lung again demonstrated. Cardiomegaly with implanted cardiac device. Right IJ central venous catheter, tip near the cavoatrial junction. RAD/Chest 1 View (Portable) IMPRESSION: Endotracheal tube tip more proximal in the thoracic trachea compared to the previous study. Tip now 5 cm above the kasia. at 2059 Reported and signed by: Ismael Lemos MD Electronically Signed: Ismael Lemos, at 20:58 EST Tel , Service support ,
[2018-08-18] MEDS: Acetaminophen 500 MG Tablet 1000 MG PO (22:13)
[2018-08-18] MEDS: Polyethylene Glycol 3350 17 GM PACKET PO (22:16)
[2018-08-18] MEDS: Insulin Lispro 100 UNIT/ML INSULN.PEN SC (22:29)
[2018-08-18 22:41] LABS: Bedside Glucose 152 mg/dL (70-110)
[2018-08-19] VITALS (28 sets, daily range): BP systolic 68–96; BP diastolic 45–57; PULSE 124–172; RESP 14–28; TEMP 36.4–37.1; O2SAT 77–100
--- NOTE | 2018-08-19 00:35 | RAD_ITS ---
HISTORY: OG TUBE PLACEMENT EXAM/TECHNIQUE: XR Chest 1 View: COMPARISON: Abdominal radiographs 08/18/18 at 8:23 PM. FINDINGS: # of images incl. paperwork: 1 The enteric tube tip now in the mid to distal stomach, more distal compared to previous. No apparent free air. Cardiomegaly and implanted cardiac device again demonstrated. RAD/Abdomen Single View (Portable) IMPRESSION: Enteric tube tip now in the mid to distal stomach. at 0145 Reported and signed by: Ismael Lemos MD Electronically Signed: Ismael Lemos, at 1:13 EST Tel , Service support ,
[2018-08-19] MEDS: Hydrocortisone Sod Succinate 100 MG/2 ML Vial 50 MG IV ×2 (00:38→06:00)
[2018-08-19 04:23] LABS: Anion Gap 18 (5-15); BUN 49 mg/dL (7-18); BUN/Creat Ratio 12.1 RATIO (10-20); Calcium,Total 9.1 mg/dL (8.5-10.1); Chloride 93 mmol/L (98-107); Creatinine, Serum 4.04 mg/dL (0.55-1.02); EST Glomerular Filtration Rate 12 mL/min (>60); Est Glom Filt Rate - Afr Amer 14 mL/min (>60); Estimated Creatinine Clearance 10.98 ml/min; Glucose 292 mg/dL (74-106); Potassium 4.2 mmol/L (3.5-5.1); Sodium Level 133 mmol/L (136-145)
[2018-08-19 04:31] LABS: Hematocrit 28.9 % (37-47); Hemoglobin 8.9 g/dl (12.0-15.0); Mean Corp Hgb Conc 30.8 g/gl (32-36); Mean Corpuscular Hgb 29.6 pg (27.0-32.0); Mean Platelet Vol. 9.4 fl (6.2-12.0); Platelet Count 265 K/mm3 (150-450); RBC Distribution Width CV 17.6 % (11.6-14.6); RBC Distribution Width SD 60.3 fl (35.1-43.9); Red Blood Count 3.01 M/mm3 (4.2-5.4); White Blood Count 23.4 K/mm3 (4.4-11.0)
[2018-08-19 04:36] LABS: Differential Indicated MANUAL DIFF; POSITIVE COUNT YES; POSITIVE DIFFERENTIAL YES; POSITIVE MORPHOLOGY YES
[2018-08-19 04:43] LABS: Vancomycin, Random Level 16.4 ug/mL (0.0-15.0)
[2018-08-19 05:18] LABS: Lymphocyte 7 % (19-41); Metamyelocyte 1 % (0-1); Monocyte 1 % (0-10); Neutrophil-Segmented 91 % (47-70); Total Cells Counted 100 (MANUAL DIFF)
[2018-08-19 05:19] LABS: Anisocytosis 1+; Hypochromasia 1+; Microcytosis 1+; Platelet Estimate ADEQUATE (ADEQ); Polychromasia 1+
[2018-08-19 05:21] LABS: Absolute Lymphocyte Count 1.64 X10^3/ul (0.83-4.51); Absolute Neutrophil Count 21.3 X10^3/uL (2.0-7.7)
[2018-08-19] MEDS: Heparin Injection (Vial) 5,000 UNIT/ML VIAL 5000 UNIT SC (05:59)
[2018-08-19] MEDS: Chlorhexidine 15 ML PO (06:00)
[2018-08-19] MEDS: CHLORHEXIDINE GLUC 2% CLOTH 1 EACH TOWELETTE TOPICAL (06:01)
[2018-08-19] MEDS: Insulin Lispro 100 UNIT/ML INSULN.PEN SC ×2 (06:05→06:06)
[2018-08-19 06:17] LABS: Bedside Glucose 302 mg/dL (70-110)
[2018-08-19] MEDS: Ipratropium/Albuterol Sulfate 3 ML AMPUL.NEB INHALATION (06:50)
--- NOTE | 2018-08-19 06:53 | PCM.PN.INT ---
Subjective: The patient was seen and examined at the bedside this morning. Events from the last 24 hours have been reviewed. The patient is currently afebrile, but remains in refractory septic shock. She was taken to the OR last evening for surgical drainage and excisional debridement of the patient's necrotizing pressure ulcers. No attempt was made by anesthesia to extubate the patient postoperatively. Upon her return to the medical intensive care unit, the patient remained hemodynamically unstable, despite being on levophed and vasopressin. Therefore, Stan-Synephrine was subsequently started. At the present time, the patient remains on 3 vasopressors and stress dose steroids with marginal hemodynamics. Objective: The patient's most recent lab work, culture data and imaging studies have all been personally reviewed. Blood and wound cultures are pending. General: - - The patient is currently intubated, sedated and mechanically ventilated. She is tolerating assist control without any ventilator desynchrony noted. HEENT: Atraumatic, Normocephalic, - - Pupils are dilated and minimally responsive Oral: No Gingival or Mucosal Lesions/ Ulcerations, - - Endotracheal and OG tubes remain in place. Neck: Supple, No Nodes, Trachea Midline, - - Large neck circumference with redundant soft tissue. Right IJ central venous catheter in place. Lungs: No wheeze, No rales, Diminished, Rhonchi Cardiovascular: Normal S1, Normal S2, No murmurs, Tachycardic Abdomen: Bowel Sounds Present, Soft, Non Tender, Obese Extremities: No clubbing, No cyanosis, - - Bilateral lower externally pitting edema Skin: - - Bilateral lower extremity venous stasis dermatitis. Bilateral hip surgical wounds are currently dressed. Musculoskeletal: No Muscle Wasting Lymphatic: No Cervical, Supraclavicular, or Inguinal Adenopathy Neurological: - - No focal neurological deficits. The patient is currently sedated. Vital Signs Temp Pulse Resp BP Pulse Ox 37.1 C 160 H 27 H 68/47 L 100 08/19/18 04:00 08/19/18 06:00 08/19/18 06:00 08/19/18 06:00 08/19/18 06:00 Oxygen Flow Rate (L/min) 3 Oxygen Delivery Method Mechanical Ventilator Weight: 330 lb 7.567 oz Body Mass Index (BMI) 59.6 Finger Stick Blood Glucose 112 Intake and Output for Last 24 Hours 08/17/18 08/18/1819 23:59 23:59 23:59 Intake Total 1125 / 1125 2599.4 / 2599.4 Output Total 0 / 0 Balance 1125 / 1125 2599.4 / 2599.4 Labs (Last 48 Hours) 08/17/18 08/17/18 08/17/18 18:20 18:30 18:30 WBC 18.5 H RBC 3.52 L Hgb 10.3 L Hct 34.4 L MCV 97.7 MCH 29.3 MCHC 29.9 L RDW 16.9 H RDW Differential 59.2 H Plt Count 240 MPV 9.7 Immature Gran % (Auto) 1.600 H Neut % (Auto) 82.5 H Lymph % (Auto) 8.6 L [place] % (Auto) 6.7 Eos % (Auto) 0.4 Baso % (Auto) 0.2 Absolute Neuts (auto) 15.3 H Absolute Lymphs (auto) 1.60 Total Counted Not Reportable Neutrophils % (Manual) Lymphocytes % (Manual) Monocytes % (Manual) Metamyelocytes % Diff Path Review Platelet Estimate Polychromasia Hypochromasia Anisocytosis Microcytosis ESR PT INR APTT D-Dimer Quant (PE/DVT) 1.29 H* Specimen Type Sample Site pH Bicarbonate Actual POC Total CO2 Base Excess O2 Saturation O2 % ABG pCO2 ABG pO2 Zack Test Respiration Rate O2 Delivery Device Liter Flow Minute Volume Vent Mode Tidal Volume POC PEEP Blood Gas Notified Whom Blood Gas Notified Time Sodium Potassium Chloride Carbon Dioxide Anion Gap BUN Creatinine Estim Creat Clear Calc Est GFR (MDRD) Af Amer Est GFR (MDRD) Non-Af BUN/Creatinine Ratio Glucose Lactic Acid Calcium Magnesium Troponin I C-React Prot Ext Range Random Vancomycin S.aureus Protein A PCR MRSA (PCR) POC Glucose 53 L 08/17/18 08/17/18 08/17/18 18:30 18:30 18:30 WBC RBC Hgb Hct MCV MCH MCHC RDW RDW Differential Plt Count MPV Immature Gran % (Auto) Neut % (Auto) Lymph % (Auto) [place] % (Auto) Eos % (Auto) Baso % (Auto) Absolute Neuts (auto) Absolute Lymphs (auto) Total Counted Neutrophils % (Manual) Lymphocytes % (Manual) Monocytes % (Manual) Metamyelocytes % Diff Path Review Platelet Estimate Polychromasia Hypochromasia Anisocytosis Microcytosis ESR PT 16.4 H INR 1.3 APTT 41.4 H D-Dimer Quant (PE/DVT) Specimen Type Sample Site pH Bicarbonate Actual POC Total CO2 Base Excess O2 Saturation O2 % ABG pCO2 ABG pO2 Zack Test Respiration Rate O2 Delivery Device Liter Flow Minute Volume Vent Mode Tidal Volume POC PEEP Blood Gas Notified Whom Blood Gas Notified Time Sodium 135 L Potassium 3.4 L Chloride 94 L Carbon Dioxide 32.0 Anion Gap 9 BUN 44 H Creatinine 3.34 H Estim Creat Clear Calc 13.28 Est GFR (MDRD) Af Amer 18 L Est GFR (MDRD) Non-Af 15 L BUN/Creatinine Ratio 13.2 Glucose 51 L Lactic Acid Calcium 9.4 Magnesium 2.0 Troponin I < 0.015 C-React Prot Ext Range Random Vancomycin S.aureus Protein A PCR MRSA (PCR) POC Glucose 08/17/18 08/17/18 08/17/18 19:39 21:05 21:30 WBC RBC Hgb Hct MCV MCH MCHC RDW RDW Differential Plt Count MPV Immature Gran % (Auto) Neut % (Auto) Lymph % (Auto) [place] % (Auto) Eos % (Auto) Baso % (Auto) Absolute Neuts (auto) Absolute Lymphs (auto) Total Counted Neutrophils % (Manual) Lymphocytes % (Manual) Monocytes % (Manual) Metamyelocytes % Diff Path Review Platelet Estimate Polychromasia Hypochromasia Anisocytosis Microcytosis ESR PT INR APTT D-Dimer Quant (PE/DVT) Specimen Type Sample Site pH Bicarbonate Actual POC Total CO2 Base Excess O2 Saturation O2 % ABG pCO2 ABG pO2 Zack Test Respiration Rate O2 Delivery Device Liter Flow Minute Volume Vent Mode Tidal Volume POC PEEP Blood Gas Notified Whom Blood Gas Notified Time Sodium Potassium Chloride Carbon Dioxide Anion Gap BUN Creatinine Estim Creat Clear Calc Est GFR (MDRD) Af Amer Est GFR (MDRD) Non-Af BUN/Creatinine Ratio Glucose Lactic Acid 1.5 Calcium Magnesium Troponin I C-React Prot Ext Range Random Vancomycin S.aureus Protein A PCR MRSA (PCR) POC Glucose 112 H 163 H 08/18/18 08/18/18 08/18/18 01:04 06:05 06:05 WBC 26.4 H RBC 3.10 L Hgb 9.1 L Hct 30.6 L MCV 98.7 MCH 29.4 MCHC 29.7 L RDW 17.0 H RDW Differential 59.7 H Plt Count 202 MPV 9.4 Immature Gran % (Auto) 2.100 H Neut % (Auto) 84.1 H Lymph % (Auto) 6.1 L [place] % (Auto) 7.0 Eos % (Auto) 0.5 Baso % (Auto) 0.2 Absolute Neuts (auto) 22.2 H Absolute Lymphs (auto) 1.61 Total Counted Not Reportable Neutrophils % (Manual) Lymphocytes % (Manual) Monocytes % (Manual) Metamyelocytes % Diff Path Review Reviewed Platelet Estimate Polychromasia Hypochromasia 1+ Anisocytosis Microcytosis ESR PT INR APTT D-Dimer Quant (PE/DVT) Specimen Type Sample Site pH Bicarbonate Actual POC Total CO2 Base Excess O2 Saturation O2 % ABG pCO2 ABG pO2 Zack Test Respiration Rate O2 Delivery Device Liter Flow Minute Volume Vent Mode Tidal Volume POC PEEP Blood Gas Notified Whom Blood Gas Notified Time Sodium 134 L Potassium 3.4 L Chloride 95 L Carbon Dioxide 27.0 Anion Gap 12 BUN 46 H Creatinine 3.52 H Estim Creat Clear Calc 12.60 Est GFR (MDRD) Af Amer 17 L Est GFR (MDRD) Non-Af 14 L BUN/Creatinine Ratio 13.1 Glucose 117 H Lactic Acid Calcium 8.9 Magnesium Troponin I C-React Prot Ext Range Random Vancomycin S.aureus Protein A PCR MRSA (PCR) POC Glucose 143 H 08/18/18 08/18/18 08/18/18 06:05 06:05 06:26 WBC RBC Hgb Hct MCV MCH MCHC RDW RDW Differential Plt Count MPV Immature Gran % (Auto) Neut % (Auto) Lymph % (Auto) [place] % (Auto) Eos % (Auto) Baso % (Auto) Absolute Neuts (auto) Absolute Lymphs (auto) Total Counted Neutrophils % (Manual) Lymphocytes % (Manual) Monocytes % (Manual) Metamyelocytes % Diff Path Review Platelet Estimate Polychromasia Hypochromasia Anisocytosis Microcytosis ESR > 130 H PT INR APTT D-Dimer Quant (PE/DVT) Specimen Type Sample Site pH Bicarbonate Actual POC Total CO2 Base Excess O2 Saturation O2 % ABG pCO2 ABG pO2 Zack Test Respiration Rate O2 Delivery Device Liter Flow Minute Volume Vent Mode Tidal Volume POC PEEP Blood Gas Notified Whom Blood Gas Notified Time Sodium Potassium Chloride Carbon Dioxide Anion Gap BUN Creatinine Estim Creat Clear Calc Est GFR (MDRD) Af Amer Est GFR (MDRD) Non-Af BUN/Creatinine Ratio Glucose Lactic Acid Calcium Magnesium Troponin I C-React Prot Ext Range 152.00 H Random Vancomycin S.aureus Protein A PCR MRSA (PCR) POC Glucose 133 H 08/18/18 08/18/18 08/18/18 08:40 09:45 10:26 WBC RBC Hgb Hct MCV MCH MCHC RDW RDW Differential Plt Count MPV Immature Gran % (Auto) Neut % (Auto) Lymph % (Auto) [place] % (Auto) Eos % (Auto) Baso % (Auto) Absolute Neuts (auto) Absolute Lymphs (auto) Total Counted Neutrophils % (Manual) Lymphocytes % (Manual) Monocytes % (Manual) Metamyelocytes % Diff Path Review Platelet Estimate Polychromasia Hypochromasia Anisocytosis Microcytosis ESR PT INR APTT D-Dimer Quant (PE/DVT) Specimen Type MELODY Sample Site OTHER pH 7.43 Bicarbonate Actual 31.3 H POC Total CO2 33 Base Excess 7 H O2 Saturation 99 O2 % ABG pCO2 47.0 H ABG pO2 132 H Zack Test Respiration Rate O2 Delivery Device Nasal Can Liter Flow 5.0 Minute Volume Vent Mode Tidal Volume POC PEEP Blood Gas Notified Whom ICU MD Blood Gas Notified Time 1025 Sodium Potassium Chloride Carbon Dioxide Anion Gap BUN Creatinine Estim Creat Clear Calc Est GFR (MDRD) Af Amer Est GFR (MDRD) Non-Af BUN/Creatinine Ratio Glucose Lactic Acid Calcium Magnesium Troponin I C-React Prot Ext Range Random Vancomycin S.aureus Protein A PCR POSITIVE H MRSA (PCR) POSITIVE H POC Glucose 316 H 08/18/18 08/18/18 08/18/18 10:30 12:15 19:04 WBC RBC Hgb Hct MCV MCH MCHC RDW RDW Differential Plt Count MPV Immature Gran % (Auto) Neut % (Auto) Lymph % (Auto) [place] % (Auto) Eos % (Auto) Baso % (Auto) Absolute Neuts (auto) Absolute Lymphs (auto) Total Counted Neutrophils % (Manual) Lymphocytes % (Manual) Monocytes % (Manual) Metamyelocytes % Diff Path Review Platelet Estimate Polychromasia Hypochromasia Anisocytosis Microcytosis ESR PT INR APTT D-Dimer Quant (PE/DVT) Specimen Type MELODY Sample Site OTHER pH 7.40 Bicarbonate Actual 27.1 H POC Total CO2 28 Base Excess 2 O2 Saturation 99 O2 % 50 ABG pCO2 43.7 ABG pO2 136 H Zack Test NA Respiration Rate 14 O2 Delivery Device Vent Liter Flow Minute Volume 6.00 Vent Mode A-C Tidal Volume 450 POC PEEP 5 Blood Gas Notified Whom [facility] Blood Gas Notified Time 1900 Sodium Potassium Chloride Carbon Dioxide Anion Gap BUN Creatinine Estim Creat Clear Calc Est GFR (MDRD) Af Amer Est GFR (MDRD) Non-Af BUN/Creatinine Ratio Glucose Lactic Acid 0.9 Calcium Magnesium Troponin I C-React Prot Ext Range Random Vancomycin S.aureus Protein A PCR MRSA (PCR) POC Glucose 140 H 08/18/18 08/19/18 08/19/18 22:08 04:00 04:00 WBC 23.4 H RBC 3.01 L Hgb 8.9 L Hct 28.9 L MCV 96.0 MCH 29.6 MCHC 30.8 L RDW 17.6 H RDW Differential 60.3 H Plt Count 265 MPV 9.4 Immature Gran % (Auto) Neut % (Auto) Not Reportable Lymph % (Auto) [place] % (Auto) Eos % (Auto) Baso % (Auto) Absolute Neuts (auto) 21.3 H Absolute Lymphs (auto) 1.64 Total Counted 100 Neutrophils % (Manual) 91 H Lymphocytes % (Manual) 7 L Monocytes % (Manual) 1 Metamyelocytes % 1 Diff Path Review May foll Platelet Estimate ADEQUATE Polychromasia 1+ Hypochromasia 1+ Anisocytosis 1+ Microcytosis 1+ ESR PT INR APTT D-Dimer Quant (PE/DVT) Specimen Type Sample Site pH Bicarbonate Actual POC Total CO2 Base Excess O2 Saturation O2 % ABG pCO2 ABG pO2 Zack Test Respiration Rate O2 Delivery Device Liter Flow Minute Volume Vent Mode Tidal Volume POC PEEP Blood Gas Notified Whom Blood Gas Notified Time Sodium Potassium Chloride Carbon Dioxide Anion Gap BUN Creatinine Estim Creat Clear Calc Est GFR (MDRD) Af Amer Est GFR (MDRD) Non-Af BUN/Creatinine Ratio Glucose Lactic Acid Calcium Magnesium Troponin I C-React Prot Ext Range Random Vancomycin 16.4 H S.aureus Protein A PCR MRSA (PCR) POC Glucose 152 H 08/19/18 08/19/18 04:00 06:03 WBC RBC Hgb Hct MCV MCH MCHC RDW RDW Differential Plt Count MPV Immature Gran % (Auto) Neut % (Auto) Lymph % (Auto) [place] % (Auto) Eos % (Auto) Baso % (Auto) Absolute Neuts (auto) Absolute Lymphs (auto) Total Counted Neutrophils % (Manual) Lymphocytes % (Manual) Monocytes % (Manual) Metamyelocytes % Diff Path Review Platelet Estimate Polychromasia Hypochromasia Anisocytosis Microcytosis ESR PT INR APTT D-Dimer Quant (PE/DVT) Specimen Type Sample Site pH Bicarbonate Actual POC Total CO2 Base Excess O2 Saturation O2 % ABG pCO2 ABG pO2 Zack Test Respiration Rate O2 Delivery Device Liter Flow Minute Volume Vent Mode Tidal Volume POC PEEP Blood Gas Notified Whom Blood Gas Notified Time Sodium 133 L Potassium 4.2 Chloride 93 L Carbon Dioxide 22.0 Anion Gap 18 H BUN 49 H Creatinine 4.04 H Estim Creat Clear Calc 10.98 Est GFR (MDRD) Af Amer 14 L Est GFR (MDRD) Non-Af 12 L BUN/Creatinine Ratio 12.1 Glucose 292 H Lactic Acid Calcium 9.1 Magnesium Troponin I C-React Prot Ext Range Random Vancomycin S.aureus Protein A PCR MRSA (PCR) POC Glucose 302 H Microbiology 08/18/18 02:00 Wound - Hip Gram Stain - Final Clinical Impression(s) from Imaging Studies Chest X-Ray 08/17/18 18:57 IMPRESSION: Cardiomegaly with vascular congestion, similar to prior. at 1951 Reported and signed by: Ismael Lemos MD Electronically Signed: Ismael Lemos, at 19:50 EST Tel , Service support , Chest CTA 08/17/18 20:11 IMPRESSION: No demonstrated pulmonary embolism, aneurysm, leak or arterial dissection. Mild emphysema, scarring in the lung bases, resolution of previous airspace disease. No pulmonary edema, congestive heart failure or confluent pneumonia. Stable cardiac enlargement, atherosclerosis, postsurgical changes, degenerative changes, obesity, hepatomegaly and hepatic steatosis suspected, remote granulomatous exposure. Electronically Signed: Taylor Delgado MD at 23:10 EST , Service support , Chest X-Ray 08/18/18 11:31 IMPRESSION: The tip of the right internal jugular venous catheter is seen in the proximal portion of the superior vena cava. The remainder of the examination is unchanged. Electronically Signed: Bo Morris MD at 13:40 EST Tel [phone], Service support , Chest X-Ray 08/18/18 18:12 IMPRESSION: 1. Endotracheal tube as described. This could be pulled back 1 cm. 2. Decreased inspiratory effort. There appears to be a decrease in the degree of vascular congestion when compared to the prior study. 3. No other interval change. Electronically Signed: rGegorio Cervantes DO at 18:40 EST Tel [phone], Service support , Chest X-Ray 08/18/18 20:30 IMPRESSION: Endotracheal tube tip more proximal in the thoracic trachea compared to the previous study. Tip now 5 cm above the kasia. at 2059 Reported and signed by: Ismael Lemos MD Electronically Signed: Ismael Lemos, at 20:58 EST Tel , Service support , KUB X-Ray 08/18/18 20:30 IMPRESSION: Enteric tube tip in the proximal stomach directed to the left in the left upper abdomen. Consider advancing 8 to 9 cm and the more distal stomach and repeating radiograph. at 2056 Reported and signed by: Ismael Lemos MD Electronically Signed: Ismael Lemos, at 20:54 EST Tel , Service support , KUB X-Ray 08/19/18 00:35 IMPRESSION: Enteric tube tip now in the mid to distal stomach. at 0145 Reported and signed by: Ismael Lemos MD Electronically Signed: Ismael Lemos, at 1:13 EST Tel , Service support , Medical Necessity - Tobacco Use Smoking Status: Former smoker Tobacco Use: Non-smoker Assessment/Plan All Active Problems (Last Reviewed 09/09/17 @ 15:25 by Padmini Mitchell) Pressure injury of deep tissue of right thigh (Acute) Pressure injury of deep tissue of left thigh (Acute) Abscess of right thigh (Acute) Abscess of left thigh (Acute) Methicillin resistant Staphylococcus aureus infection (Acute) Necrotizing soft tissue infection (Acute) Skin necrosis (Acute) Cellulitis of left hip (Acute) ESR raised (Acute) Septic shock (Acute) Clostridium difficile enterocolitis (Resolved) C. difficile colitis (Resolved) Hyperkalemia (Resolved) MRSA (methicillin resistant Staphylococcus aureus) infection (Resolved) Pseudomonas aeruginosa infection (Resolved) infected ischial tuberosity ulcer (Resolved) RECOMMENDATIONS: 1. Continue Levophed, vasopressin and Stan-Synephrine in an attempt to maintain a mean arterial pressure at or above 60 mmHg. 2. Continue broad-spectrum antimicrobial coverage per infectious diseases recommendations. 3. Continue local wound care per surgery recommendations. 4. Transition from continuous fentanyl infusion to Precedex this morning. 5. Continue stress dose steroids. 6. Give 1 L of fluid now. 7. Continue appropriate ICU prophylaxis 8. Plans for goals of care discussion with the family this morning. IMPRESSIONS: 1. Refractory septic shock secondary to bilateral necrotizing hip wounds, now POD #1 s/p surgical drainage and excisional debridement The patient was initially admitted to the hospital and started on antibiotics for acute on chronic bilateral hip wounds. However, with time, the patient deteriorated clinically and required transfer to the medical intensive care unit. The patient is currently in refractory septic shock with vasopressor requirement x3. Broad-spectrum antibiotics will be continued per infectious diseases recommendations. In addition, the patient will be maintained on stress dose steroids as ordered. Additional supplemental IV fluids will be provided this morning. 2. Acute on chronic hypoxemic respiratory failure The patient was intubated on August 18 to allow for surgical drainage and excisional debridement of the patient's hip wounds. No attempt was made by anesthesia postoperatively to extubate the patient. The patient's continuous fentanyl infusion will be discontinued this morning and replaced with Precedex in hopes that this may help facilitate weaning from mechanical ventilation. The patient previously reported that she had a baseline 4 L/min supplemental oxygen requirement. 3. Metabolic encephalopathy Likely secondary to #1, coupled with mild CO2 retention. Patient is currently intubated and sedated. Her continuous fentanyl infusion will be discontinued and transition to Precedex to allow for clearing of her mental status. 4. End-stage renal disease on hemodialysis Nephrology following. The patient is a Thursday, Thursday, Thursday dialysis patient. However, dialysis is currently on hold due to the patient's refractory septic shock. 5. History of obstructive sleep apnea and restrictive lung mechanics BiPAP can be restarted if the patient is able to be successfully extubated from mechanical ventilation. 6. Super morbid obesity/diabetes mellitus/tachy-bradycardia syndrome/chronic pain syndrome/hypothyroidism/GERD Complicates care, management, recovery and prognosis. Antihypertensives are on hold. 7. CODE STATUS DNR CCA without intubation. I spoke at length with the patient's this morning regarding the patient's overall prognosis and concerns for continued clinical decompensation over the next 24 hours. He has plans to discuss with additional family members and consideration for potential transition to comfort care measures. UPDATE, 0900: Following a discussion with the patient's and additional family member, they are electing to pursue comfort care measures at this time. They are awaiting the arrival of one additional family member. After all family members have arrived, will plan to premedicate the patient with IV fentanyl and Ativan for anxiety, after which time, the patient will be palliatively extubated. Vasopressor support will then be discontinued. Family is aware and questions were answered. CODE STATUS has been updated to DNR CC. At approximately 1000 hours the patient was palliatively extubated, after having been premedicated with ativan and Fentanyl. At 1020 the patient peacefully with family at the bedside. TIME: 80 minutes of critical care time, independent of procedures, was spent addressing the patient's septic shock, respiratory failure, acute on chronic bilateral hip wounds, metabolic encephalopathy, end-stage renal disease on hemodialysis, obstructive sleep apnea, restrictive lung disease, goals of care/code status discussion, review of all data and collaboration with the care team. ([id number], [id number]) Code Visit Procedures: 44102 Critial Care Addl 30 Min 9xxxx: [id number] Critical care first hour
--- NOTE | 2018-08-19 06:58 | PN_ITS ---
Subjective: The patient was seen and examined at the bedside this morning. Events from the last 24 hours have been reviewed. The patient is currently afebrile, but remains in refractory septic shock. She was taken to the OR last evening for surgical drainage and excisional debridement of the patient's necrotizing pressure ulcers. No attempt was made by anesthesia to extubate the patient postoperatively. Upon her return to the medical intensive care unit, the patient remained hemodynamically unstable, despite being on levophed and vasopressin. Therefore, Stan-Synephrine was subsequently started. At the present time, the patient remains on 3 vasopressors and stress dose steroids with marginal hemodynamics. Objective: The patient's most recent lab work, culture data and imaging studies have all been personally reviewed. Blood and wound cultures are pending. General: - - The patient is currently intubated, sedated and mechanically ventilated. She is tolerating assist control without any ventilator desynchrony noted. HEENT: Atraumatic, Normocephalic, - - Pupils are dilated and minimally responsive Oral: No Gingival or Mucosal Lesions/ Ulcerations, - - Endotracheal and OG tubes remain in place. Neck: Supple, No Nodes, Trachea Midline, - - Large neck circumference with redundant soft tissue. Right IJ central venous catheter in place. Lungs: No wheeze, No rales, Diminished, Rhonchi Cardiovascular: Normal S1, Normal S2, No murmurs, Tachycardic Abdomen: Bowel Sounds Present, Soft, Non Tender, Obese Extremities: No clubbing, No cyanosis, - - Bilateral lower externally pitting edema Skin: - - Bilateral lower extremity venous stasis dermatitis. Bilateral hip surgical wounds are currently dressed. Musculoskeletal: No Muscle Wasting Lymphatic: No Cervical, Supraclavicular, or Inguinal Adenopathy Neurological: - - No focal neurological deficits. The patient is currently sedated. Vital Signs Temp Pulse Resp BP Pulse Ox 37.1 C 160 H 27 H 68/47 L 100 08/19/18 04:00 08/19/18 06:00 08/19/18 06:00 08/19/18 06:00 08/19/18 06:00 Oxygen Flow Rate (L/min) 3 Oxygen Delivery Method Mechanical Ventilator Weight: 330 lb 7.567 oz Body Mass Index (BMI) 59.6 Finger Stick Blood Glucose 112 Intake and Output for Last 24 Hours 08/17/18 08/18/1819 23:59 23:59 23:59 Intake Total 1125 / 1125 2599.4 / 2599.4 Output Total 0 / 0 Balance 1125 / 1125 2599.4 / 2599.4 Labs (Last 48 Hours) 08/17/18 08/17/18 08/17/18 18:20 18:30 18:30 WBC 18.5 H RBC 3.52 L Hgb 10.3 L Hct 34.4 L MCV 97.7 MCH 29.3 MCHC 29.9 L RDW 16.9 H RDW Differential 59.2 H Plt Count 240 MPV 9.7 Immature Gran % (Auto) 1.600 H Neut % (Auto) 82.5 H Lymph % (Auto) 8.6 L [place] % (Auto) 6.7 Eos % (Auto) 0.4 Baso % (Auto) 0.2 Absolute Neuts (auto) 15.3 H Absolute Lymphs (auto) 1.60 Total Counted Not Reportable Neutrophils % (Manual) Lymphocytes % (Manual) Monocytes % (Manual) Metamyelocytes % Diff Path Review Platelet Estimate Polychromasia Hypochromasia Anisocytosis Microcytosis ESR PT INR APTT D-Dimer Quant (PE/DVT) 1.29 H* Specimen Type Sample Site pH Bicarbonate Actual POC Total CO2 Base Excess O2 Saturation O2 % ABG pCO2 ABG pO2 Zack Test Respiration Rate O2 Delivery Device Liter Flow Minute Volume Vent Mode Tidal Volume POC PEEP Blood Gas Notified Whom Blood Gas Notified Time Sodium Potassium Chloride Carbon Dioxide Anion Gap BUN Creatinine Estim Creat Clear Calc Est GFR (MDRD) Af Amer Est GFR (MDRD) Non-Af BUN/Creatinine Ratio Glucose Lactic Acid Calcium Magnesium Troponin I C-React Prot Ext Range Random Vancomycin S.aureus Protein A PCR MRSA (PCR) POC Glucose 53 L 08/17/18 08/17/18 08/17/18 18:30 18:30 18:30 WBC RBC Hgb Hct MCV MCH MCHC RDW RDW Differential Plt Count MPV Immature Gran % (Auto) Neut % (Auto) Lymph % (Auto) [place] % (Auto) Eos % (Auto) Baso % (Auto) Absolute Neuts (auto) Absolute Lymphs (auto) Total Counted Neutrophils % (Manual) Lymphocytes % (Manual) Monocytes % (Manual) Metamyelocytes % Diff Path Review Platelet Estimate Polychromasia Hypochromasia Anisocytosis Microcytosis ESR PT 16.4 H INR 1.3 APTT 41.4 H D-Dimer Quant (PE/DVT) Specimen Type Sample Site pH Bicarbonate Actual POC Total CO2 Base Excess O2 Saturation O2 % ABG pCO2 ABG pO2 Zack Test Respiration Rate O2 Delivery Device Liter Flow Minute Volume Vent Mode Tidal Volume POC PEEP Blood Gas Notified Whom Blood Gas Notified Time Sodium 135 L Potassium 3.4 L Chloride 94 L Carbon Dioxide 32.0 Anion Gap 9 BUN 44 H Creatinine 3.34 H Estim Creat Clear Calc 13.28 Est GFR (MDRD) Af Amer 18 L Est GFR (MDRD) Non-Af 15 L BUN/Creatinine Ratio 13.2 Glucose 51 L Lactic Acid Calcium 9.4 Magnesium 2.0 Troponin I < 0.015 C-React Prot Ext Range Random Vancomycin S.aureus Protein A PCR MRSA (PCR) POC Glucose 08/17/18 08/17/18 08/17/18 19:39 21:05 21:30 WBC RBC Hgb Hct MCV MCH MCHC RDW RDW Differential Plt Count MPV Immature Gran % (Auto) Neut % (Auto) Lymph % (Auto) [place] % (Auto) Eos % (Auto) Baso % (Auto) Absolute Neuts (auto) Absolute Lymphs (auto) Total Counted Neutrophils % (Manual) Lymphocytes % (Manual) Monocytes % (Manual) Metamyelocytes % Diff Path Review Platelet Estimate Polychromasia Hypochromasia Anisocytosis Microcytosis ESR PT INR APTT D-Dimer Quant (PE/DVT) Specimen Type Sample Site pH Bicarbonate Actual POC Total CO2 Base Excess O2 Saturation O2 % ABG pCO2 ABG pO2 Zack Test Respiration Rate O2 Delivery Device Liter Flow Minute Volume Vent Mode Tidal Volume POC PEEP Blood Gas Notified Whom Blood Gas Notified Time Sodium Potassium Chloride Carbon Dioxide Anion Gap BUN Creatinine Estim Creat Clear Calc Est GFR (MDRD) Af Amer Est GFR (MDRD) Non-Af BUN/Creatinine Ratio Glucose Lactic Acid 1.5 Calcium Magnesium Troponin I C-React Prot Ext Range Random Vancomycin S.aureus Protein A PCR MRSA (PCR) POC Glucose 112 H 163 H 08/18/18 08/18/18 08/18/18 01:04 06:05 06:05 WBC 26.4 H RBC 3.10 L Hgb 9.1 L Hct 30.6 L MCV 98.7 MCH 29.4 MCHC 29.7 L RDW 17.0 H RDW Differential 59.7 H Plt Count 202 MPV 9.4 Immature Gran % (Auto) 2.100 H Neut % (Auto) 84.1 H Lymph % (Auto) 6.1 L [place] % (Auto) 7.0 Eos % (Auto) 0.5 Baso % (Auto) 0.2 Absolute Neuts (auto) 22.2 H Absolute Lymphs (auto) 1.61 Total Counted Not Reportable Neutrophils % (Manual) Lymphocytes % (Manual) Monocytes % (Manual) Metamyelocytes % Diff Path Review Reviewed Platelet Estimate Polychromasia Hypochromasia 1+ Anisocytosis Microcytosis ESR PT INR APTT D-Dimer Quant (PE/DVT) Specimen Type Sample Site pH Bicarbonate Actual POC Total CO2 Base Excess O2 Saturation O2 % ABG pCO2 ABG pO2 Zack Test Respiration Rate O2 Delivery Device Liter Flow Minute Volume Vent Mode Tidal Volume POC PEEP Blood Gas Notified Whom Blood Gas Notified Time Sodium 134 L Potassium 3.4 L Chloride 95 L Carbon Dioxide 27.0 Anion Gap 12 BUN 46 H Creatinine 3.52 H Estim Creat Clear Calc 12.60 Est GFR (MDRD) Af Amer 17 L Est GFR (MDRD) Non-Af 14 L BUN/Creatinine Ratio 13.1 Glucose 117 H Lactic Acid Calcium 8.9 Magnesium Troponin I C-React Prot Ext Range Random Vancomycin S.aureus Protein A PCR MRSA (PCR) POC Glucose 143 H 08/18/18 08/18/18 08/18/18 06:05 06:05 06:26 WBC RBC Hgb Hct MCV MCH MCHC RDW RDW Differential Plt Count MPV Immature Gran % (Auto) Neut % (Auto) Lymph % (Auto) [place] % (Auto) Eos % (Auto) Baso % (Auto) Absolute Neuts (auto) Absolute Lymphs (auto) Total Counted Neutrophils % (Manual) Lymphocytes % (Manual) Monocytes % (Manual) Metamyelocytes % Diff Path Review Platelet Estimate Polychromasia Hypochromasia Anisocytosis Microcytosis ESR > 130 H PT INR APTT D-Dimer Quant (PE/DVT) Specimen Type Sample Site pH Bicarbonate Actual POC Total CO2 Base Excess O2 Saturation O2 % ABG pCO2 ABG pO2 Zack Test Respiration Rate O2 Delivery Device Liter Flow Minute Volume Vent Mode Tidal Volume POC PEEP Blood Gas Notified Whom Blood Gas Notified Time Sodium Potassium Chloride Carbon Dioxide Anion Gap BUN Creatinine Estim Creat Clear Calc Est GFR (MDRD) Af Amer Est GFR (MDRD) Non-Af BUN/Creatinine Ratio Glucose Lactic Acid Calcium Magnesium Troponin I C-React Prot Ext Range 152.00 H Random Vancomycin S.aureus Protein A PCR MRSA (PCR) POC Glucose 133 H 08/18/18 08/18/18 08/18/18 08:40 09:45 10:26 WBC RBC Hgb Hct MCV MCH MCHC RDW RDW Differential Plt Count MPV Immature Gran % (Auto) Neut % (Auto) Lymph % (Auto) [place] % (Auto) Eos % (Auto) Baso % (Auto) Absolute Neuts (auto) Absolute Lymphs (auto) Total Counted Neutrophils % (Manual) Lymphocytes % (Manual) Monocytes % (Manual) Metamyelocytes % Diff Path Review Platelet Estimate Polychromasia Hypochromasia Anisocytosis Microcytosis ESR PT INR APTT D-Dimer Quant (PE/DVT) Specimen Type MELODY Sample Site OTHER pH 7.43 Bicarbonate Actual 31.3 H POC Total CO2 33 Base Excess 7 H O2 Saturation 99 O2 % ABG pCO2 47.0 H ABG pO2 132 H Zack Test Respiration Rate O2 Delivery Device Nasal Can Liter Flow 5.0 Minute Volume Vent Mode Tidal Volume POC PEEP Blood Gas Notified Whom ICU MD Blood Gas Notified Time 1025 Sodium Potassium Chloride Carbon Dioxide Anion Gap BUN Creatinine Estim Creat Clear Calc Est GFR (MDRD) Af Amer Est GFR (MDRD) Non-Af BUN/Creatinine Ratio Glucose Lactic Acid Calcium Magnesium Troponin I C-React Prot Ext Range Random Vancomycin S.aureus Protein A PCR POSITIVE H MRSA (PCR) POSITIVE H POC Glucose 316 H 08/18/18 08/18/18 08/18/18 10:30 12:15 19:04 WBC RBC Hgb Hct MCV MCH MCHC RDW RDW Differential Plt Count MPV Immature Gran % (Auto) Neut % (Auto) Lymph % (Auto) [place] % (Auto) Eos % (Auto) Baso % (Auto) Absolute Neuts (auto) Absolute Lymphs (auto) Total Counted Neutrophils % (Manual) Lymphocytes % (Manual) Monocytes % (Manual) Metamyelocytes % Diff Path Review Platelet Estimate Polychromasia Hypochromasia Anisocytosis Microcytosis ESR PT INR APTT D-Dimer Quant (PE/DVT) Specimen Type MELODY Sample Site OTHER pH 7.40 Bicarbonate Actual 27.1 H POC Total CO2 28 Base Excess 2 O2 Saturation 99 O2 % 50 ABG pCO2 43.7 ABG pO2 136 H Zack Test NA Respiration Rate 14 O2 Delivery Device Vent Liter Flow Minute Volume 6.00 Vent Mode A-C Tidal Volume 450 POC PEEP 5 Blood Gas Notified Whom [facility] Blood Gas Notified Time 1900 Sodium Potassium Chloride Carbon Dioxide Anion Gap BUN Creatinine Estim Creat Clear Calc Est GFR (MDRD) Af Amer Est GFR (MDRD) Non-Af BUN/Creatinine Ratio Glucose Lactic Acid 0.9 Calcium Magnesium Troponin I C-React Prot Ext Range Random Vancomycin S.aureus Protein A PCR MRSA (PCR) POC Glucose 140 H 08/18/18 08/19/18 08/19/18 22:08 04:00 04:00 WBC 23.4 H RBC 3.01 L Hgb 8.9 L Hct 28.9 L MCV 96.0 MCH 29.6 MCHC 30.8 L RDW 17.6 H RDW Differential 60.3 H Plt Count 265 MPV 9.4 Immature Gran % (Auto) Neut % (Auto) Not Reportable Lymph % (Auto) [place] % (Auto) Eos % (Auto) Baso % (Auto) Absolute Neuts (auto) 21.3 H Absolute Lymphs (auto) 1.64 Total Counted 100 Neutrophils % (Manual) 91 H Lymphocytes % (Manual) 7 L Monocytes % (Manual) 1 Metamyelocytes % 1 Diff Path Review May foll Platelet Estimate ADEQUATE Polychromasia 1+ Hypochromasia 1+ Anisocytosis 1+ Microcytosis 1+ ESR PT INR APTT D-Dimer Quant (PE/DVT) Specimen Type Sample Site pH Bicarbonate Actual POC Total CO2 Base Excess O2 Saturation O2 % ABG pCO2 ABG pO2 Zack Test Respiration Rate O2 Delivery Device Liter Flow Minute Volume Vent Mode Tidal Volume POC PEEP Blood Gas Notified Whom Blood Gas Notified Time Sodium Potassium Chloride Carbon Dioxide Anion Gap BUN Creatinine Estim Creat Clear Calc Est GFR (MDRD) Af Amer Est GFR (MDRD) Non-Af BUN/Creatinine Ratio Glucose Lactic Acid Calcium Magnesium Troponin I C-React Prot Ext Range Random Vancomycin 16.4 H S.aureus Protein A PCR MRSA (PCR) POC Glucose 152 H 08/19/18 08/19/18 04:00 06:03 WBC RBC Hgb Hct MCV MCH MCHC RDW RDW Differential Plt Count MPV Immature Gran % (Auto) Neut % (Auto) Lymph % (Auto) [place] % (Auto) Eos % (Auto) Baso % (Auto) Absolute Neuts (auto) Absolute Lymphs (auto) Total Counted Neutrophils % (Manual) Lymphocytes % (Manual) Monocytes % (Manual) Metamyelocytes % Diff Path Review Platelet Estimate Polychromasia Hypochromasia Anisocytosis Microcytosis ESR PT INR APTT D-Dimer Quant (PE/DVT) Specimen Type Sample Site pH Bicarbonate Actual POC Total CO2 Base Excess O2 Saturation O2 % ABG pCO2 ABG pO2 Zack Test Respiration Rate O2 Delivery Device Liter Flow Minute Volume Vent Mode Tidal Volume POC PEEP Blood Gas Notified Whom Blood Gas Notified Time Sodium 133 L Potassium 4.2 Chloride 93 L Carbon Dioxide 22.0 Anion Gap 18 H BUN 49 H Creatinine 4.04 H Estim Creat Clear Calc 10.98 Est GFR (MDRD) Af Amer 14 L Est GFR (MDRD) Non-Af 12 L BUN/Creatinine Ratio 12.1 Glucose 292 H Lactic Acid Calcium 9.1 Magnesium Troponin I C-React Prot Ext Range Random Vancomycin S.aureus Protein A PCR MRSA (PCR) POC Glucose 302 H Microbiology 08/18/18 02:00 Wound - Hip Gram Stain - Final Clinical Impression(s) from Imaging Studies Chest X-Ray 08/17/18 18:57 IMPRESSION: Cardiomegaly with vascular congestion, similar to prior. at 1951 Reported and signed by: Ismael Lemos MD Electronically Signed: Ismael Lemos, at 19:50 EST Tel , Service support , Chest CTA 08/17/18 20:11 IMPRESSION: No demonstrated pulmonary embolism, aneurysm, leak or arterial dissection. Mild emphysema, scarring in the lung bases, resolution of previous airspace disease. No pulmonary edema, congestive heart failure or confluent pneumonia. Stable cardiac enlargement, atherosclerosis, postsurgical changes, degenerative changes, obesity, hepatomegaly and hepatic steatosis suspected, remote granulomatous exposure. Electronically Signed: Taylor Delgado MD at 23:10 EST , Service support , Chest X-Ray 08/18/18 11:31 IMPRESSION: The tip of the right internal jugular venous catheter is seen in the proximal portion of the superior vena cava. The remainder of the examination is unchanged. Electronically Signed: Bo Morris MD at 13:40 EST Tel [phone], Service support , Chest X-Ray 08/18/18 18:12 IMPRESSION: 1. Endotracheal tube as described. This could be pulled back 1 cm. 2. Decreased inspiratory effort. There appears to be a decrease in the degree of vascular congestion when compared to the prior study. 3. No other interval change. Electronically Signed: Gregorio Cervantes DO at 18:40 EST Tel [phone], Service support , Chest X-Ray 08/18/18 20:30 IMPRESSION: Endotracheal tube tip more proximal in the thoracic trachea compared to the previous study. Tip now 5 cm above the kasia. at 2059 Reported and signed by: Ismael Lemos MD Electronically Signed: Ismael Lemos, at 20:58 EST Tel , Service support , KUB X-Ray 08/18/18 20:30 IMPRESSION: Enteric tube tip in the proximal stomach directed to the left in the left upper abdomen. Consider advancing 8 to 9 cm and the more distal stomach and repeating radiograph. at 2056 Reported and signed by: Ismael Lemos MD Electronically Signed: Ismael Lemos, at 20:54 EST Tel , Service support , KUB X-Ray 08/19/18 00:35 IMPRESSION: Enteric tube tip now in the mid to distal stomach. at 0145 Reported and signed by: Ismael Lemos MD Electronically Signed: Ismael Lemos, at 1:13 EST Tel , Service support , Medical Necessity - Tobacco Use Smoking Status: Former smoker Tobacco Use: Non-smoker Assessment/Plan All Active Problems (Last Reviewed 09/09/17 @ 15:25 by Padmini Mitchell) Pressure injury of deep tissue of right thigh (Acute) Pressure injury of deep tissue of left thigh (Acute) Abscess of right thigh (Acute) Abscess of left thigh (Acute) Methicillin resistant Staphylococcus aureus infection (Acute) Necrotizing soft tissue infection (Acute) Skin necrosis (Acute) Cellulitis of left hip (Acute) ESR raised (Acute) Septic shock (Acute) Clostridium difficile enterocolitis (Resolved) C. difficile colitis (Resolved) Hyperkalemia (Resolved) MRSA (methicillin resistant Staphylococcus aureus) infection (Resolved) Pseudomonas aeruginosa infection (Resolved) infected ischial tuberosity ulcer (Resolved) RECOMMENDATIONS: 1. Continue Levophed, vasopressin and Stan-Synephrine in an attempt to maintain a mean arterial pressure at or above 60 mmHg. 2. Continue broad-spectrum antimicrobial coverage per infectious diseases recommendations. 3. Continue local wound care per surgery recommendations. 4. Transition from continuous fentanyl infusion to Precedex this morning. 5. Continue stress dose steroids. 6. Give 1 L of fluid now. 7. Continue appropriate ICU prophylaxis 8. Plans for goals of care discussion with the family this morning. IMPRESSIONS: 1. Refractory septic shock secondary to bilateral necrotizing hip wounds, now POD #1 s/p surgical drainage and excisional debridement The patient was initially admitted to the hospital and started on antibiotics for acute on chronic bilateral hip wounds. However, with time, the patient deteriorated clinically and required transfer to the medical intensive care unit. The patient is currently in refractory septic shock with vasopressor requirement x3. Broad-spectrum antibiotics will be continued per infectious diseases recommendations. In addition, the patient will be maintained on stress dose steroids as ordered. Additional supplemental IV fluids will be provided this morning. 2. Acute on chronic hypoxemic respiratory failure The patient was intubated on August 18 to allow for surgical drainage and excisional debridement of the patient's hip wounds. No attempt was made by anesthesia postoperatively to extubate the patient. The patient's continuous fentanyl infusion will be discontinued this morning and replaced with Precedex in hopes that this may help facilitate weaning from mechanical ventilation. The patient previously reported that she had a baseline 4 L/min supplemental oxygen requirement. 3. Metabolic encephalopathy Likely secondary to #1, coupled with mild CO2 retention. Patient is currently intubated and sedated. Her continuous fentanyl infusion will be discontinued and transition to Precedex to allow for clearing of her mental status. 4. End-stage renal disease on hemodialysis Nephrology following. The patient is a Thursday, Thursday, Thursday dialysis patient. However, dialysis is currently on hold due to the patient's refractory septic shock. 5. History of obstructive sleep apnea and restrictive lung mechanics BiPAP can be restarted if the patient is able to be successfully extubated from mechanical ventilation. 6. Super morbid obesity/diabetes mellitus/tachy-bradycardia syndrome/chronic pain syndrome/hypothyroidism/GERD Complicates care, management, recovery and prognosis. Antihypertensives are on hold. 7. CODE STATUS DNR CCA without intubation. I spoke at length with the patient's this morning regarding the patient's overall prognosis and concerns for continued clinical decompensation over the next 24 hours. He has plans to discuss with additional family members and consideration for potential transition to comfort care measures. UPDATE, 0900: Following a discussion with the patient's and additional family member, they are electing to pursue comfort care measures at this time. They are awaiting the arrival of one additional family member. After all family members have arrived, will plan to premedicate the patient with IV fentanyl and Ativan for anxiety, after which time, the patient will be palliatively extubated. Vasopressor support will then be discontinued. Family is aware and questions were answered. CODE STATUS has been updated to DNR CC. At approximately 1000 hours the patient was palliatively extubated, after having been premedicated with ativan and Fentanyl. At 1020 the patient peacefully with family at the bedside. TIME: 80 minutes of critical care time, independent of procedures, was spent addressing the patient's septic shock, respiratory failure, acute on chronic bilateral hip wounds, metabolic encephalopathy, end-stage renal disease on hemodialysis, obstructive sleep apnea, restrictive lung disease, goals of care/code status discussion, review of all data and collaboration with the care team. ([id number], [id number]) Code Visit Procedures: 10163 Critial Care Addl 30 Min 9xxxx: [id number] Critical care first hour
[2018-08-19] MEDS: 0.9% Normal Saline 1,000 ML 999 ML IV (07:00)
[2018-08-19] MEDS: Nystatin Powder 15gm Bottle 1 APPLIC TOPICAL (08:13)
--- NOTE | 2018-08-19 09:10 | PCM.PN.HOSP ---
Patient Problems: Active and Suspected Problems (Last Reviewed 09/09/17 @ 15:25 by Padmini Mitchell) Septic shock (Acute) Subjective: Patient is a 63-year-old lady admitted with recent hospitalization for cellulitis associated with decubitus ulcers involving both hips discharged to [facility] facility brought to the emergency department as a result of progressive generalized malaise. Patient was first admitted to progressive care unit however in view of increasing lethargy and persistent hypotension patient was transferred to the intensive care unit as a suspected case of septic shock Patient condition continued to deteriorate resulting in patient being intubated. Seen this a.m. remains sedated on the vent on multiple pressors. Has anisocoria Objective: GENERAL: Sedated on the vent HEENT: Atraumatic; ET tube in place EYES; right pupil unreactive tonight, NECK; supple, normal thyroid, RESPIRATORY: Diminished to auscultation bilaterally, CARDIOVASCULAR: Regular S1 S2, no audible murmurs GI: soft, non-tender, normoactive bowel sounds, : No Renal angle tenderness; EXTREMITIES: Lateral decubitus involving both hips NEURO: Unable to assess SKIN: No Rash PSYCH; unable to assess Vitals/I&O's: Vital Signs Temp Pulse Resp BP Pulse Ox 97.6 F L 137 H 19 H 77/46 L 94 08/19/18 08:00 08/19/18 08:45 08/19/18 08:45 08/19/18 08:45 08/19/18 08:45 Oxygen Flow Rate (L/min) 3 Oxygen Delivery Method Mechanical Ventilator Weight: 149.9 kg Body Mass Index (BMI) 59.6 Finger Stick Blood Glucose 112 Intake and Output for Last 24 Hours 08/17/18 08/18/18 08/19/18 23:59 23:59 23:59 Intake Total 1125 / 1125 2599.4 / 2599.4 Output Total 0 / 0 Balance 1125 / 1125 2599.4 / 2599.4 Microbiology Past 72 Hours 08/18/18 02:00 Wound - Hip Gram Stain - Final Laboratory Results 08/18/18 06:05: Diff Path Review Reviewed 08/18/18 06:05: ESR > 130 H 08/18/18 06:05: C-React Prot Ext Range 152.00 H 08/18/18 08:40: POC Glucose 316 H 08/18/18 09:45: S.aureus Protein A PCR POSITIVE H, MRSA (PCR) POSITIVE H 08/18/18 10:26: Specimen Type MELODY, Sample Site OTHER, pH 7.43, Bicarbonate Actual 31.3 H, POC Total CO2 33, Base Excess 7 H, O2 Saturation 99, ABG pCO2 47.0 H, ABG pO2 132 H, O2 Delivery Device Nasal Can, Liter Flow 5.0, Blood Gas Notified Whom ICU , Blood Gas Notified Time 1025 08/18/18 10:30: Lactic Acid 0.9 08/18/18 12:15: POC Glucose 140 H 08/18/18 19:04: Specimen Type MELODY, Sample Site OTHER, pH 7.40, Bicarbonate Actual 27.1 H, POC Total CO2 28, Base Excess 2, O2 Saturation 99, O2 % 50, ABG pCO2 43.7, ABG pO2 136 H, Zack Test NA, Respiration Rate 14, O2 Delivery Device Vent, Minute Volume 6.00, Vent Mode A-C, Tidal Volume 450, POC PEEP 5, Blood Gas Notified Whom HOSP , Blood Gas Notified Time 1900 08/18/18 22:08: POC Glucose 152 H 08/19/18 04:00: Random Vancomycin 16.4 H 08/19/18 04:00: WBC 23.4 H, RBC 3.01 L, Hgb 8.9 L, Hct 28.9 L, MCV 96.0, MCH 29.6, MCHC 30.8 L, RDW 17.6 H, RDW Differential 60.3 H, Plt Count 265, MPV 9.4, Neut % (Auto) Not Reportable, Absolute Neuts (auto) 21.3 H, Absolute Lymphs (auto) 1.64, Total Counted 100, Neutrophils % (Manual) 91 H, Lymphocytes % (Manual) 7 L, Monocytes % (Manual) 1, Metamyelocytes % 1, Diff Path Review May , Platelet Estimate ADEQUATE, Polychromasia 1+, Hypochromasia 1+, Anisocytosis 1+, Microcytosis 1+ 08/19/18 04:00: Sodium 133 L, Potassium 4.2, Chloride 93 L, Carbon Dioxide 22.0, Anion Gap 18 H, BUN 49 H, Creatinine 4.04 H, Estim Creat Clear Calc 10.98, Est GFR (MDRD) Af Amer 14 L, Est GFR (MDRD) Non-Af 12 L, BUN/Creatinine Ratio 12.1, Glucose 292 H, Calcium 9.1 08/19/18 06:03: POC Glucose 302 H Current Medications Acetaminophen (Tylenol Liquid) 650 mg GT Q6H PRN PRN PRN Reason: Non-cardiac pain (mod-severe) Acetaminophen (Tylenol Liquid) 1,000 mg GT Q8 [facility] Al Hydroxide/Mg Hydroxide (Mylanta Ii) 30 ml GT Q4H PRN PRN PRN Reason: Gi DISTRESS Albuterol Sulfate (Ventolin Aerosols) 2.5 mg INHALATION Q2H PRN PRN PRN Reason: dyspnea, wheezing Albuterol/Ipratropium (Duoneb) 3 ml INHALATION Q4HWA.RT [facility] Last Admin: 08/19/18 06:50 Dose: 3 ml Amiodarone HCl (Cordarone) 200 mg GT DAILY [facility] Aspirin (Aspirin, Baby) 81 mg GT DAILY@0800 [facility] Bisacodyl (Dulcolax) 10 mg RECTAL DAILY PRN PRN PRN Reason: Constipation Calcium Acetate (Phoslo Gel Cap) 667 mg GT TIDCM [facility] Chlorhexidine Gluconate () 15 ml PO BID [facility] Last Admin: 08/19/18 06:00 Dose: 15 ml Chlorhexidine Gluconate () 1 each TOPICAL DAILY [facility] Last Admin: 08/19/18 06:01 Dose: 1 each Dextrose (D50w Syringe) 0 gm IV X1 PRN; Protocol PRN Reason: Hypoglycemia Glucagon () 1 mg IM .X1 PRN PRN Reason: Hypoglycemia Heparin Sodium (Porcine) (Heparin Na) 5,000 unit SC Q8 [facility] Last Admin: 08/19/18 05:59 Dose: 5,000 unit Hydralazine HCl (Apresoline Iv) 10 mg IV Q4H PRN PRN PRN Reason: SBP > 160 Hydrocortisone Sodium Succinate (Solu-Cortef) 50 mg IV Q6 [facility] Last Admin: 08/19/18 06:00 Dose: 50 mg Sodium Chloride () 1,000 mls @ 60 mls/hr IV .[id number] [facility] Last Admin: 08/18/18 22:17 Dose: 60 mls/hr Piperacillin Sod/Tazobactam Sod (Zosyn) 3.375 gm in 50 mls @ 12.5 mls/hr IV Q12 [facility] Last Admin: 08/18/18 22:16 Dose: 12.5 mls/hr Vancomycin IV Pharmacy to Dose (1 ea/ Sodium Chloride) 500 mls @ 250 mls/hr IV PRN PRN; Protocol PRN Reason: Rx to Dose Vasopressin 40 units/ Sodium (Chloride) 52 mls @ 3.12 mls/hr IV .[id number] [facility] Last Admin: 08/19/18 05:53 Dose: Not Given Norepinephrine Bitartrate 8 mg (/ Dextrose) 258 mls @ 9.68 mls/hr IV .[id number] [facility] Last Admin: 08/19/18 07:05 Dose: 9.68 mls/hr Clindamycin Phosphate 900 mg/ (Dextrose) 106 mls @ 212 mls/hr IV Q8 [facility] Last Admin: 08/19/18 06:00 Dose: 212 mls/hr Phenylephrine HCl 40 mg/ (Sodium Chloride) 254 mls @ 3.81 mls/hr IV .[id number] [facility] Last Admin: 08/19/18 08:15 Dose: 3.81 mls/hr Dexmedetomidine HCl 400 mcg/ (Sodium Chloride) 100 mls @ 18.74 mls/hr IV .[id number] [facility] Last Admin: 08/19/18 07:02 Dose: 18.74 mls/hr Insulin Glargine (Lantus (Bkc)) 12 units SC QHS [facility] Last Admin: 08/18/18 22:18 Dose: 12 units Insulin Human Lispro (Humalog Kwikpen (Bkc)) 0 unit SC ACHS [facility]; Protocol Last Admin: 08/19/18 06:06 Dose: 4 u Insulin Human Lispro (Humalog Kwikpen (Bkc)) 4 unit SC TIDAC [facility] Last Admin: 08/19/18 06:05 Dose: 4 u Levothyroxine Sodium (Synthroid) 25 mcg GT DAILY@0600 [facility] Magnesium Hydroxide (Milk Of Magnesia) 30 ml GT DAILY PRN PRN Reason: Constipation Midodrine (Proamatine) 10 mg GT TID [facility] Montelukast Sodium (Singulair) 10 mg GT QHS [facility] Nutritional Formula (Maykel - [place] Flavor) 1 packet GT BID [facility] Nutritional Formula (Lactose Free) (Glucerna Shake) 120 ml PO 4X/DAY [facility] Last Admin: 08/18/18 22:17 Dose: Not Given Nystatin (Mycostatin Powder) 1 applic TOPICAL TID [facility]; Protocol Last Admin: 08/19/18 08:13 Dose: 1 applicatio Ondansetron HCl (Zofran) 4 mg IV Q8H PRN PRN PRN Reason: NAUSEA Pantoprazole Sodium (Protonix) 20 mg PO DAILY [facility] Last Admin: 08/18/18 11:54 Dose: Not Given Polyethylene Glycol (Miralax) 17 gm GT QHS [facility] Pramipexole Dihydrochloride (Mirapex) 1 mg GT QHS [facility] Pramipexole Dihydrochloride (Mirapex) 0.5 mg GT DAILY [facility] Sertraline HCl (Zoloft) 50 mg GT DAILY [facility] Sodium Chloride () 5 - 15 ml IV UD PRN PRN Reason: SALINE FLUSH Sodium Hypochlorite (Dakins Solution 0.25% (1/2 Strength)) 1 applic TOPICAL BID [facility]; Protocol Last Admin: 08/18/18 22:42 Dose: Not Given Tramadol HCl (Ultram) 50 mg GT Q12H PRN PRN Reason: PAIN Medical Necessity - Tobacco Use Smoking Status: Former smoker Tobacco Use: Non-smoker Assessment/Plan All Active Problems (Last Reviewed 09/09/17 @ 15:25 by Padmini Mitchell) Pressure injury of deep tissue of right thigh (Acute) Pressure injury of deep tissue of left thigh (Acute) Abscess of right thigh (Acute) Abscess of left thigh (Acute) Methicillin resistant Staphylococcus aureus infection (Acute) Necrotizing soft tissue infection (Acute) Skin necrosis (Acute) Cellulitis of left hip (Acute) ESR raised (Acute) Septic shock (Acute) Clostridium difficile enterocolitis (Resolved) C. difficile colitis (Resolved) Hyperkalemia (Resolved) MRSA (methicillin resistant Staphylococcus aureus) infection (Resolved) Pseudomonas aeruginosa infection (Resolved) infected ischial tuberosity ulcer (Resolved) Patient is a 63-year-old lady admitted with recent hospitalization for cellulitis associated with decubitus ulcers involving both hips discharged to [facility] facility brought to the emergency department as a result of progressive generalized malaise. Patient was first admitted to progressive care unit however in view of increasing lethargy and persistent hypotension patient was transferred to the intensive care unit as a suspected case of septic shock 1. Septic shock secondary to bilateral decubitus ulcers with surrounding areas of cellulitis. Patient admitted to the intensive care unit treatment initiated per protocol does not broad-spectrum antibiotic therapy with Zosyn and vancomycin, IV fluid resuscitation and consult placed to Dr. Herrera with pulmonary/critical care Case discussed with team 2. Acute metabolic encephalopathy 3. Acute hypoxic respiratory failure she was intubated on 08/18/[address] Herrera subsequent vent management deferred 4. Anisocoria do suspect possible brainstem injury 5. End-stage renal disease patient is on dialysis ~ Mondays, Wednesdays and Fridays so it was placed to nephrology for dialysis orders 6. 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 Did continue with patient home regimen 7. Hypertension-medications held in view of patient's hypotension 8. Dyslipidemia per history patient apparently has allergy to statins 9. Morbid obesity with BMI of 59.6 10. Pulmonary hypertension secondary to obesity, GRAEME on supplemental oxygen and nocturnal BiPAP 11. Hypothyroidism- 12. Chronic A. fib rate controlled not on systemic anticoagulation due to significant risk for falls 13. Conduction system disorder status post pacemaker placement 14. RLS -- Mirapex at HS 15. DVT prophylaxis: On SCD. Patient condition continues to deteriorate had a discussion with patient's sister and her who at this point elected to undergo terminal weaning. Patient CODE STATUS changed from DNR CCA to DNR comfort care time spent in discussion 15 minutes Active Medications Acetaminophen (Tylenol Liquid) 650 mg GT Q6H PRN PRN PRN Reason: Non-cardiac pain (mod-severe) Acetaminophen (Tylenol Liquid) 1,000 mg GT Q8 [facility] Al Hydroxide/Mg Hydroxide (Mylanta Ii) 30 ml GT Q4H PRN PRN PRN Reason: Gi DISTRESS Albuterol Sulfate (Ventolin Aerosols) 2.5 mg INHALATION Q2H PRN PRN PRN Reason: dyspnea, wheezing Albuterol/Ipratropium (Duoneb) 3 ml INHALATION Q4HWA.RT [facility] Last Admin: 08/19/18 06:50 Dose: 3 ml Amiodarone HCl (Cordarone) 200 mg GT DAILY [facility] Aspirin (Aspirin, Baby) 81 mg GT DAILY@0800 [facility] Bisacodyl (Dulcolax) 10 mg RECTAL DAILY PRN PRN PRN Reason: Constipation Calcium Acetate (Phoslo Gel Cap) 667 mg GT TIDCM [facility] Chlorhexidine Gluconate () 15 ml PO BID [facility] Last Admin: 08/19/18 06:00 Dose: 15 ml Chlorhexidine Gluconate () 1 each TOPICAL DAILY [facility] Last Admin: 08/19/18 06:01 Dose: 1 each Dextrose (D50w Syringe) 0 gm IV X1 PRN; Protocol PRN Reason: Hypoglycemia Glucagon () 1 mg IM .X1 PRN PRN Reason: Hypoglycemia Heparin Sodium (Porcine) (Heparin Na) 5,000 unit SC Q8 [facility] Last Admin: 08/19/18 05:59 Dose: 5,000 unit Hydralazine HCl (Apresoline Iv) 10 mg IV Q4H PRN PRN PRN Reason: SBP > 160 Hydrocortisone Sodium Succinate (Solu-Cortef) 50 mg IV Q6 [facility] Last Admin: 08/19/18 06:00 Dose: 50 mg Sodium Chloride () 1,000 mls @ 60 mls/hr IV .[id number] [facility] Last Admin: 08/18/18 22:17 Dose: 60 mls/hr Piperacillin Sod/Tazobactam Sod (Zosyn) 3.375 gm in 50 mls @ 12.5 mls/hr IV Q12 [facility] Last Admin: 08/18/18 22:16 Dose: 12.5 mls/hr Vancomycin IV Pharmacy to Dose (1 ea/ Sodium Chloride) 500 mls @ 250 mls/hr IV PRN PRN; Protocol PRN Reason: Rx to Dose Vasopressin 40 units/ Sodium (Chloride) 52 mls @ 3.12 mls/hr IV .[id number] [facility] Last Admin: 08/19/18 05:53 Dose: Not Given Norepinephrine Bitartrate 8 mg (/ Dextrose) 258 mls @ 9.68 mls/hr IV .[id number] [facility] Last Admin: 08/19/18 07:05 Dose: 9.68 mls/hr Clindamycin Phosphate 900 mg/ (Dextrose) 106 mls @ 212 mls/hr IV Q8 [facility] Last Admin: 08/19/18 06:00 Dose: 212 mls/hr Phenylephrine HCl 40 mg/ (Sodium Chloride) 254 mls @ 3.81 mls/hr IV .[id number] [facility] Last Admin: 08/19/18 08:15 Dose: 3.81 mls/hr Dexmedetomidine HCl 400 mcg/ (Sodium Chloride) 100 mls @ 18.74 mls/hr IV .[id number] [facility] Last Admin: 08/19/18 07:02 Dose: 18.74 mls/hr Insulin Glargine (Lantus (Bk)) 12 units SC QHS [facility] Last Admin: 08/18/18 22:18 Dose: 12 units Insulin Human Lispro (Humalog Kwikpen ([facility])) 0 unit SC ACHS [facility]; Protocol Last Admin: 08/19/18 06:06 Dose: 4 u Insulin Human Lispro (Humalog Kwikpen ([facility])) 4 unit SC TIDAC [facility] Last Admin: 08/19/18 06:05 Dose: 4 u Levothyroxine Sodium (Synthroid) 25 mcg GT DAILY@0600 [facility] Magnesium Hydroxide (Milk Of Magnesia) 30 ml GT DAILY PRN PRN Reason: Constipation Midodrine (Proamatine) 10 mg GT TID [facility] Montelukast Sodium (Singulair) 10 mg GT QHS [facility] Nutritional Formula (Maykel - [place] Flavor) 1 packet GT BID [facility] Nutritional Formula (Lactose Free) (Glucerna Shake) 120 ml PO 4X/DAY [facility] Last Admin: 08/18/18 22:17 Dose: Not Given Nystatin (Mycostatin Powder) 1 applic TOPICAL TID [facility]; Protocol Last Admin: 08/19/18 08:13 Dose: 1 applicatio Ondansetron HCl (Zofran) 4 mg IV Q8H PRN PRN PRN Reason: NAUSEA Pantoprazole Sodium (Protonix) 20 mg PO DAILY [facility] Last Admin: 08/18/18 11:54 Dose: Not Given Polyethylene Glycol (Miralax) 17 gm GT QHS [facility] Pramipexole Dihydrochloride (Mirapex) 1 mg GT QHS [facility] Pramipexole Dihydrochloride (Mirapex) 0.5 mg GT DAILY [facility] Sertraline HCl (Zoloft) 50 mg GT DAILY [facility] Sodium Chloride () 5 - 15 ml IV UD PRN PRN Reason: SALINE FLUSH Sodium Hypochlorite (Dakins Solution 0.25% (1/2 Strength)) 1 applic TOPICAL BID [facility]; Protocol Last Admin: 08/18/18 22:42 Dose: Not Given Tramadol HCl (Ultram) 50 mg GT Q12H PRN PRN Reason: PAIN Code Visit Inpatient E&M: 26828 Subs Hosp L3 Procedures: 04802 Advncd Care Plan 30 Min
--- NOTE | 2018-08-19 09:17 | PN_ITS ---
Patient Problems: Active and Suspected Problems (Last Reviewed 09/09/17 @ 15:25 by Padmini Mitchell) Septic shock (Acute) Subjective: Patient is a 63-year-old lady admitted with recent hospitalization for cellulitis associated with decubitus ulcers involving both hips discharged to nursing home facility brought to the emergency department as a result of progressive generalized malaise. Patient was first admitted to progressive care unit however in view of increasing lethargy and persistent hypotension patient was transferred to the intensive care unit as a suspected case of septic shock Patient condition continued to deteriorate resulting in patient being intubated. Seen this a.m. remains sedated on the vent on multiple pressors. Has anisocoria Objective: GENERAL: Sedated on the vent HEENT: Atraumatic; ET tube in place EYES; right pupil unreactive tonight, NECK; supple, normal thyroid, RESPIRATORY: Diminished to auscultation bilaterally, CARDIOVASCULAR: Regular S1 S2, no audible murmurs GI: soft, non-tender, normoactive bowel sounds, : No Renal angle tenderness; EXTREMITIES: Lateral decubitus involving both hips NEURO: Unable to assess SKIN: No Rash PSYCH; unable to assess Vitals/I&O's: Vital Signs Temp Pulse Resp BP Pulse Ox 97.6 F L 137 H 19 H 77/46 L 94 08/19/18 08:00 08/19/18 08:45 08/19/18 08:45 08/19/18 08:45 08/19/18 08:45 Oxygen Flow Rate (L/min) 3 Oxygen Delivery Method Mechanical Ventilator Weight: 149.9 kg Body Mass Index (BMI) 59.6 Finger Stick Blood Glucose 112 Intake and Output for Last 24 Hours 08/17/18 08/18/18 08/19/18 23:59 23:59 23:59 Intake Total 1125 / 1125 2599.4 / 2599.4 Output Total 0 / 0 Balance 1125 / 1125 2599.4 / 2599.4 Microbiology Past 72 Hours 08/18/18 02:00 Wound - Hip Gram Stain - Final Laboratory Results 08/18/18 06:05: Diff Path Review Reviewed 08/18/18 06:05: ESR > 130 H 08/18/18 06:05: C-React Prot Ext Range 152.00 H 08/18/18 08:40: POC Glucose 316 H 08/18/18 09:45: S.aureus Protein A PCR POSITIVE H, MRSA (PCR) POSITIVE H 08/18/18 10:26: Specimen Type MELODY, Sample Site OTHER, pH 7.43, Bicarbonate Actual 31.3 H, POC Total CO2 33, Base Excess 7 H, O2 Saturation 99, ABG pCO2 47.0 H, ABG pO2 132 H, O2 Delivery Device Nasal Can, Liter Flow 5.0, Blood Gas Notified Whom ICU , Blood Gas Notified Time 1025 08/18/18 10:30: Lactic Acid 0.9 08/18/18 12:15: POC Glucose 140 H 08/18/18 19:04: Specimen Type MELODY, Sample Site OTHER, pH 7.40, Bicarbonate Actual 27.1 H, POC Total CO2 28, Base Excess 2, O2 Saturation 99, O2 % 50, ABG pCO2 43.7, ABG pO2 136 H, Zack Test NA, Respiration Rate 14, O2 Delivery Device Vent, Minute Volume 6.00, Vent Mode A-C, Tidal Volume 450, POC PEEP 5, Blood Gas Notified Whom HOSP , Blood Gas Notified Time 1900 08/18/18 22:08: POC Glucose 152 H 08/19/18 04:00: Random Vancomycin 16.4 H 08/19/18 04:00: WBC 23.4 H, RBC 3.01 L, Hgb 8.9 L, Hct 28.9 L, MCV 96.0, MCH 29.6, MCHC 30.8 L, RDW 17.6 H, RDW Differential 60.3 H, Plt Count 265, MPV 9.4, Neut % (Auto) Not Reportable, Absolute Neuts (auto) 21.3 H, Absolute Lymphs (auto) 1.64, Total Counted 100, Neutrophils % (Manual) 91 H, Lymphocytes % (Manual) 7 L, Monocytes % (Manual) 1, Metamyelocytes % 1, Diff Path Review May , Platelet Estimate ADEQUATE, Polychromasia 1+, Hypochromasia 1+, Anisocytosis 1+, Microcytosis 1+ 08/19/18 04:00: Sodium 133 L, Potassium 4.2, Chloride 93 L, Carbon Dioxide 22.0, Anion Gap 18 H, BUN 49 H, Creatinine 4.04 H, Estim Creat Clear Calc 10.98, Est GFR (MDRD) Af Amer 14 L, Est GFR (MDRD) Non-Af 12 L, BUN/Creatinine Ratio 12.1, Glucose 292 H, Calcium 9.1 08/19/18 06:03: POC Glucose 302 H Current Medications Acetaminophen (Tylenol Liquid) 650 mg GT Q6H PRN PRN PRN Reason: Non-cardiac pain (mod-severe) Acetaminophen (Tylenol Liquid) 1,000 mg GT Q8 [facility] Al Hydroxide/Mg Hydroxide (Mylanta Ii) 30 ml GT Q4H PRN PRN PRN Reason: Gi DISTRESS Albuterol Sulfate (Ventolin Aerosols) 2.5 mg INHALATION Q2H PRN PRN PRN Reason: dyspnea, wheezing Albuterol/Ipratropium (Duoneb) 3 ml INHALATION Q4HWA.RT [facility] Last Admin: 08/19/18 06:50 Dose: 3 ml Amiodarone HCl (Cordarone) 200 mg GT DAILY [facility] Aspirin (Aspirin, Baby) 81 mg GT DAILY@0800 [facility] Bisacodyl (Dulcolax) 10 mg RECTAL DAILY PRN PRN PRN Reason: Constipation Calcium Acetate (Phoslo Gel Cap) 667 mg GT TIDCM [facility] Chlorhexidine Gluconate () 15 ml PO BID [facility] Last Admin: 08/19/18 06:00 Dose: 15 ml Chlorhexidine Gluconate () 1 each TOPICAL DAILY [facility] Last Admin: 08/19/18 06:01 Dose: 1 each Dextrose (D50w Syringe) 0 gm IV X1 PRN; Protocol PRN Reason: Hypoglycemia Glucagon () 1 mg IM .X1 PRN PRN Reason: Hypoglycemia Heparin Sodium (Porcine) (Heparin Na) 5,000 unit SC Q8 [facility] Last Admin: 08/19/18 05:59 Dose: 5,000 unit Hydralazine HCl (Apresoline Iv) 10 mg IV Q4H PRN PRN PRN Reason: SBP > 160 Hydrocortisone Sodium Succinate (Solu-Cortef) 50 mg IV Q6 [facility] Last Admin: 08/19/18 06:00 Dose: 50 mg Sodium Chloride () 1,000 mls @ 60 mls/hr IV .[id number] [facility] Last Admin: 08/18/18 22:17 Dose: 60 mls/hr Piperacillin Sod/Tazobactam Sod (Zosyn) 3.375 gm in 50 mls @ 12.5 mls/hr IV Q12 [facility] Last Admin: 08/18/18 22:16 Dose: 12.5 mls/hr Vancomycin IV Pharmacy to Dose (1 ea/ Sodium Chloride) 500 mls @ 250 mls/hr IV PRN PRN; Protocol PRN Reason: Rx to Dose Vasopressin 40 units/ Sodium (Chloride) 52 mls @ 3.12 mls/hr IV .[id number] [facility] Last Admin: 08/19/18 05:53 Dose: Not Given Norepinephrine Bitartrate 8 mg (/ Dextrose) 258 mls @ 9.68 mls/hr IV .[id number] [facility] Last Admin: 08/19/18 07:05 Dose: 9.68 mls/hr Clindamycin Phosphate 900 mg/ (Dextrose) 106 mls @ 212 mls/hr IV Q8 [facility] Last Admin: 08/19/18 06:00 Dose: 212 mls/hr Phenylephrine HCl 40 mg/ (Sodium Chloride) 254 mls @ 3.81 mls/hr IV .[id number] [facility] Last Admin: 08/19/18 08:15 Dose: 3.81 mls/hr Dexmedetomidine HCl 400 mcg/ (Sodium Chloride) 100 mls @ 18.74 mls/hr IV .[id number] [facility] Last Admin: 08/19/18 07:02 Dose: 18.74 mls/hr Insulin Glargine (Lantus (Bkc)) 12 units SC QHS [facility] Last Admin: 08/18/18 22:18 Dose: 12 units Insulin Human Lispro (Humalog Kwikpen (Bkc)) 0 unit SC ACHS [facility]; Protocol Last Admin: 08/19/18 06:06 Dose: 4 u Insulin Human Lispro (Humalog Kwikpen (Bkc)) 4 unit SC TIDAC [facility] Last Admin: 08/19/18 06:05 Dose: 4 u Levothyroxine Sodium (Synthroid) 25 mcg GT DAILY@0600 [facility] Magnesium Hydroxide (Milk Of Magnesia) 30 ml GT DAILY PRN PRN Reason: Constipation Midodrine (Proamatine) 10 mg GT TID [facility] Montelukast Sodium (Singulair) 10 mg GT QHS [facility] Nutritional Formula (Maykel - Nelson Flavor) 1 packet GT BID [facility] Nutritional Formula (Lactose Free) (Glucerna Shake) 120 ml PO 4X/DAY [facility] Last Admin: 08/18/18 22:17 Dose: Not Given Nystatin (Mycostatin Powder) 1 applic TOPICAL TID [facility]; Protocol Last Admin: 08/19/18 08:13 Dose: 1 applicatio Ondansetron HCl (Zofran) 4 mg IV Q8H PRN PRN PRN Reason: NAUSEA Pantoprazole Sodium (Protonix) 20 mg PO DAILY [facility] Last Admin: 08/18/18 11:54 Dose: Not Given Polyethylene Glycol (Miralax) 17 gm GT QHS [facility] Pramipexole Dihydrochloride (Mirapex) 1 mg GT QHS [facility] Pramipexole Dihydrochloride (Mirapex) 0.5 mg GT DAILY [facility] Sertraline HCl (Zoloft) 50 mg GT DAILY [facility] Sodium Chloride () 5 - 15 ml IV UD PRN PRN Reason: SALINE FLUSH Sodium Hypochlorite (Dakins Solution 0.25% (1/2 Strength)) 1 applic TOPICAL BID [facility]; Protocol Last Admin: 08/18/18 22:42 Dose: Not Given Tramadol HCl (Ultram) 50 mg GT Q12H PRN PRN Reason: PAIN Medical Necessity - Tobacco Use Smoking Status: Former smoker Tobacco Use: Non-smoker Assessment/Plan All Active Problems (Last Reviewed 09/09/17 @ 15:25 by Padmini Mitchell) Pressure injury of deep tissue of right thigh (Acute) Pressure injury of deep tissue of left thigh (Acute) Abscess of right thigh (Acute) Abscess of left thigh (Acute) Methicillin resistant Staphylococcus aureus infection (Acute) Necrotizing soft tissue infection (Acute) Skin necrosis (Acute) Cellulitis of left hip (Acute) ESR raised (Acute) Septic shock (Acute) Clostridium difficile enterocolitis (Resolved) C. difficile colitis (Resolved) Hyperkalemia (Resolved) MRSA (methicillin resistant Staphylococcus aureus) infection (Resolved) Pseudomonas aeruginosa infection (Resolved) infected ischial tuberosity ulcer (Resolved) Patient is a 63-year-old lady admitted with recent hospitalization for cellulitis associated with decubitus ulcers involving both hips discharged to nursing home facility brought to the emergency department as a result of progressive generalized malaise. Patient was first admitted to progressive care unit however in view of increasing lethargy and persistent hypotension patient was transferred to the intensive care unit as a suspected case of septic shock 1. Septic shock secondary to bilateral decubitus ulcers with surrounding areas of cellulitis. Patient admitted to the intensive care unit treatment initiated per protocol does not broad-spectrum antibiotic therapy with Zosyn and vancomycin, IV fluid resuscitation and consult placed to Dr. Herrera with pulmonary/critical care Case discussed with team 2. Acute metabolic encephalopathy 3. Acute hypoxic respiratory failure she was intubated on 08/18/[address] Herrera subsequent vent management deferred 4. Anisocoria do suspect possible brainstem injury 5. End-stage renal disease patient is on dialysis ~ Mondays, Wednesdays and Fridays so it was placed to nephrology for dialysis orders 6. 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 Did continue with patient home regimen 7. Hypertension-medications held in view of patient's hypotension 8. Dyslipidemia per history patient apparently has allergy to statins 9. Morbid obesity with BMI of 59.6 10. Pulmonary hypertension secondary to obesity, GRAEME on supplemental oxygen and nocturnal BiPAP 11. Hypothyroidism- 12. Chronic A. fib rate controlled not on systemic anticoagulation due to significant risk for falls 13. Conduction system disorder status post pacemaker placement 14. RLS -- Mirapex at HS 15. DVT prophylaxis: On SCD. Patient condition continues to deteriorate had a discussion with patient's sister and her who at this point elected to undergo terminal weaning. Patient CODE STATUS changed from DNR CCA to DNR comfort care time spent in discussion 15 minutes Active Medications Acetaminophen (Tylenol Liquid) 650 mg GT Q6H PRN PRN PRN Reason: Non-cardiac pain (mod-severe) Acetaminophen (Tylenol Liquid) 1,000 mg GT Q8 [facility] Al Hydroxide/Mg Hydroxide (Mylanta Ii) 30 ml GT Q4H PRN PRN PRN Reason: Gi DISTRESS Albuterol Sulfate (Ventolin Aerosols) 2.5 mg INHALATION Q2H PRN PRN PRN Reason: dyspnea, wheezing Albuterol/Ipratropium (Duoneb) 3 ml INHALATION Q4HWA.RT [facility] Last Admin: 08/19/18 06:50 Dose: 3 ml Amiodarone HCl (Cordarone) 200 mg GT DAILY [facility] Aspirin (Aspirin, Baby) 81 mg GT DAILY@0800 [facility] Bisacodyl (Dulcolax) 10 mg RECTAL DAILY PRN PRN PRN Reason: Constipation Calcium Acetate (Phoslo Gel Cap) 667 mg GT TIDCM [facility] Chlorhexidine Gluconate () 15 ml PO BID [facility] Last Admin: 08/19/18 06:00 Dose: 15 ml Chlorhexidine Gluconate () 1 each TOPICAL DAILY [facility] Last Admin: 08/19/18 06:01 Dose: 1 each Dextrose (D50w Syringe) 0 gm IV X1 PRN; Protocol PRN Reason: Hypoglycemia Glucagon () 1 mg IM .X1 PRN PRN Reason: Hypoglycemia Heparin Sodium (Porcine) (Heparin Na) 5,000 unit SC Q8 [facility] Last Admin: 08/19/18 05:59 Dose: 5,000 unit Hydralazine HCl (Apresoline Iv) 10 mg IV Q4H PRN PRN PRN Reason: SBP > 160 Hydrocortisone Sodium Succinate (Solu-Cortef) 50 mg IV Q6 [facility] Last Admin: 08/19/18 06:00 Dose: 50 mg Sodium Chloride () 1,000 mls @ 60 mls/hr IV .[id number] [facility] Last Admin: 08/18/18 22:17 Dose: 60 mls/hr Piperacillin Sod/Tazobactam Sod (Zosyn) 3.375 gm in 50 mls @ 12.5 mls/hr IV Q12 [facility] Last Admin: 08/18/18 22:16 Dose: 12.5 mls/hr Vancomycin IV Pharmacy to Dose (1 ea/ Sodium Chloride) 500 mls @ 250 mls/hr IV PRN PRN; Protocol PRN Reason: Rx to Dose Vasopressin 40 units/ Sodium (Chloride) 52 mls @ 3.12 mls/hr IV .[id number] [facility] Last Admin: 08/19/18 05:53 Dose: Not Given Norepinephrine Bitartrate 8 mg (/ Dextrose) 258 mls @ 9.68 mls/hr IV .[id number] [facility] Last Admin: 08/19/18 07:05 Dose: 9.68 mls/hr Clindamycin Phosphate 900 mg/ (Dextrose) 106 mls @ 212 mls/hr IV Q8 [facility] Last Admin: 08/19/18 06:00 Dose: 212 mls/hr Phenylephrine HCl 40 mg/ (Sodium Chloride) 254 mls @ 3.81 mls/hr IV .[id number] [facility] Last Admin: 08/19/18 08:15 Dose: 3.81 mls/hr Dexmedetomidine HCl 400 mcg/ (Sodium Chloride) 100 mls @ 18.74 mls/hr IV .Q5H21M [facility] Last Admin: 08/19/18 07:02 Dose: 18.74 mls/hr Insulin Glargine (Lantus (Bk)) 12 units SC QHS [facility] Last Admin: 08/18/18 22:18 Dose: 12 units Insulin Human Lispro (Humalog Kwikpen ([facility])) 0 unit SC ACHS [facility]; Protocol Last Admin: 08/19/18 06:06 Dose: 4 u Insulin Human Lispro (Humalog Kwikpen ([facility])) 4 unit SC TIDAC [facility] Last Admin: 08/19/18 06:05 Dose: 4 u Levothyroxine Sodium (Synthroid) 25 mcg GT DAILY@0600 [facility] Magnesium Hydroxide (Milk Of Magnesia) 30 ml GT DAILY PRN PRN Reason: Constipation Midodrine (Proamatine) 10 mg GT TID [facility] Montelukast Sodium (Singulair) 10 mg GT QHS [facility] Nutritional Formula (Maykel - Nelson Flavor) 1 packet GT BID [facility] Nutritional Formula (Lactose Free) (Glucerna Shake) 120 ml PO 4X/DAY [facility] Last Admin: 08/18/18 22:17 Dose: Not Given Nystatin (Mycostatin Powder) 1 applic TOPICAL TID [facility]; Protocol Last Admin: 08/19/18 08:13 Dose: 1 applicatio Ondansetron HCl (Zofran) 4 mg IV Q8H PRN PRN PRN Reason: NAUSEA Pantoprazole Sodium (Protonix) 20 mg PO DAILY [facility] Last Admin: 08/18/18 11:54 Dose: Not Given Polyethylene Glycol (Miralax) 17 gm GT QHS [facility] Pramipexole Dihydrochloride (Mirapex) 1 mg GT QHS [facility] Pramipexole Dihydrochloride (Mirapex) 0.5 mg GT DAILY [facility] Sertraline HCl (Zoloft) 50 mg GT DAILY [facility] Sodium Chloride () 5 - 15 ml IV UD PRN PRN Reason: SALINE FLUSH Sodium Hypochlorite (Dakins Solution 0.25% (1/2 Strength)) 1 applic TOPICAL BID [facility]; Protocol Last Admin: 08/18/18 22:42 Dose: Not Given Tramadol HCl (Ultram) 50 mg GT Q12H PRN PRN Reason: PAIN Code Visit Inpatient E&M: 54116 Subs Hosp L3 Procedures: 04089 Advncd Care Plan 30 Min
--- NOTE | 2018-08-19 09:25 | CASEMGMT ---
RN CM Note: Meeting with family, Dr. Herrera, Nurse. Discussed plan of care. Family requesting comfort care. Physician offered to have change control coordinator come, however family will be calling family member who is medical reception specialist prior to extubation. Will continue to follow. Leticia LOZAN RN AC
--- NOTE | 2018-08-19 09:48 | CASEMGMT ---
Pt will be terminally extubated this morning. SW spoke w/pt's and brother in law in the waiting room, offered support. SW explained is here and available for any supportive needs. HOWARD Riley, ACTION INSTALLER
[2018-08-19] MEDS: fentaNYL 100 MCG/2 ML Ampul IV (09:55)
[2018-08-19] MEDS: LORazepam 2 MG/ML Syringe IV ×2 (09:56→10:14)
--- NOTE | 2018-08-19 10:02 | NURSING ---
1000 Dr. Herrera present in pt room w/[employer] ERP ARCHITECT, RT, pts , hat mender and supporting family. 50mcq fentanyl and 1mg Ativan given IV push. OET/OG removed per RT, to RA HOB elevated 1005 levophed, reagan, vaso all dc, family remains present
--- NOTE | 2018-08-19 10:18 | NURSING ---
pt gasping w/gurgling in throat. ativan 1mg iv given per dr order. family remains present HR 0, bp 0 rare agonal respers
--- NOTE | 2018-08-19 10:20 | NURSING ---
apneic, asystolic, no bp. Dr. Herrera in pt room. lethal exodus.
--- NOTE | 2018-08-19 10:39 | CASEMGMT ---
BISHOP notified Vanessa at [facility] that pt has been terminally extubated. HOWARD Riley
--- NOTE | 2018-08-19 11:25 | OP.PCM_ITS ---
Report of Operation Date of Procedure: 08/18/18 Pre-Operative Diagnosis: 1. Necrotic pressure injury MRSA abscess bilateral hips/lateral thighs. 2. MRSA. 3. Sepsis. 4. Diabetes mellitus. 5. ESRD with dialysis. Post-Operative Diagnosis: 1. Necrotizing pressure injury MRSA abscess bilateral hips/lateral thighs. 2. MRSA. 3. Sepsis. 4. Diabetes mellitus. 5. ESRD with dialysis. Surgery/Procedure Performed:: 1. Surgical preparation left hip/lateral thigh with incision and drainage and excisional debridement necrotizing pressure injury MRSA abscess (273 cm2). 2. Surgical preparation right hip/lateral thigh with incision and drainage and excisional debridement necrotizing pressure injury MRSA abscess (360 cm2). Description of Surgical Findings:: The patient is a 63 year old F with a history of diabetes mellitus and ESRD on dialysis was admitted to the hospital with increased fatigue, weakness, malaise in addition to worsened primarily left hip wound redness with foul odor drainage. Patient states she developed pressure injuries to her bilateral hip/lateral thigh areas because she would sit in a wheelchair that was too small for her and she would be in the chair for up to 4 hours during her dialysis. S he developed worsening necrosis in the area of the pressure injury with foul odor and drainage. Dakin's dressing changes were started to help with the odor. Initially her WBC was 18.5 and today it has increased to 26.4. She is on Vancomycin and Zosyn. MRSA Wound DNA by PCR was positive. This morning she was hypotensive and placed on pressors and transferred to the ICU. I was asked to evaluate this patient for surgical options for treatment. Discussed with the patient that urgent surgical intervention was needed today as soon as possible because the risk of worsening infection with necrotizing process, sepsis, and . Patient was informed of the risks and complications of the procedure including alternatives to surgery. These were discussed with the patient personally. Patient voices understanding and wishes to proceed. The tensor fascia neha was inflamed and looked viable without clinical evidence of necrotizing process at this time. The underlying vastus lateralis muscle appeared viable and not necrotic at this time. Size of defect left hip/lateral thigh - 21 x 13 x11 cm. Size of defect right hip/lateral thigh - 24 x 15 x 11 cm. singe winder: None Type of Anesthesia:: General Specimen's removed: 1. Left hip/lateral thigh necrotizing pressure injury MRSA abscess to Pathology and Microbiology. 2. Right hip/lateral thigh necrotizing pressure injury MRSA abscess to Pathology and Microbiology. Drains: None. Estimated Blood Loss (mL): 400 ml. Description of Procedure: Patient was taken to OR in supine position and was placed under general anesthesia. The hips and thighs were prepped and draped in the usual fashion. Due to her large size, I placed saline bags underneath her hips to get better exposure of the infected areas while still maintaining a supine position. The right hip/lateral thigh area was prepped first. When completed, the saline bags were removed from the right side and placed underneath her left hips in order to debride the left side which was prepped and draped separately after the right side was completed. SCD's were placed for DVT prophylaxis. Perioperative antibiotics were given intravenously. I then proceeded with incision and drainage of her right sided infection. There was a lot of fat necrosis in the subcutaneous tissue with some creamy pus. Brisk bleeding was noted that was controlled with electrocautery. Because of the skin necrosis and underlying induration and necrotizing process in the subcutaneous tissue, extensive excisional debridement was done down to the muscle and fascia. The tensor fascia neha appeared slightly inflamed and viable. No bubbling brownish grayish fluid was seen that would suggest necrotizing fasciitis. The underlying vastus lateralis muscle appeared viable with no evidence of necrosis. The wound was irrigated with saline. Hemostasis was obtained with electrocautery. Some of the tissue was sent to Microbiology for culture. The rest of the tissue was sent to Pathology for analysis. The size of the defect right hip/lateral thigh after incision and drainage and excisional debridement was 24 x 15 x 11 cm or 360 cm2. The wound was dressed with Mepitel nonadherent dressing followed by Kerlix gauze and Betadine followed by dry Kerlix gauze and ABD pads followed by a compression SHEREE wrap. I used 5 Kerlix rolls for the packing. I then proceeded to the left side after a separate prep and drape. I then proceeded with incision and drainage of her left sided infection. There was a lot of fat necrosis in the subcutaneous tissue with some creamy pus. Brisk bleeding was noted that was controlled with electrocautery. Because of the skin necrosis and underlying induration and necrotizing process in the subcutaneous tissue, extensive excisional debridement was done down to the muscle and fascia. The tensor fascia neha appeared slightly inflamed and viable. No bubbling brownish grayish fluid was seen that would suggest necrotizing fasciitis. The underlying vastus lateralis muscle appeared viable with no evidence of necrosis. The wound was irrigated with saline. Hemostasis was obtained with electrocautery. Some of the tissue was sent to Microbiology for culture. The rest of the tissue was sent to Pathology for analysis. The size of the defect left hip/lateral thigh after incision and drainage and excisional debridement was 21 x 13 x 11 cm or 273 cm2. The wound was dressed with Mepitel nonadherent dressing followed by Kerlix gauze and Betadine followed by dry Kerlix gauze and ABD pads followed by a compression SHEREE wrap. I used 5 Kerlix rolls for the packing. Patient tolerated the procedure reasonably well and was sent directly to PACU in serious condition. She was kept intubated. There was about 400 ml of blood loss. Will check a Hgb and if it drops below 8 will plan on PRBC transfusion at the time of her dialysis. Anticipate dialysis tomorrow so will repack the wounds with Betadine dressing and will plan on the VAC placement the next day on Thursday. Grafts/Implants Used: None. - Complications None. - Admit VTE Documentation VTE Present on Admission: No VTE Mechan Device Prophylaxis: SCD's VTE Pharm Prophylaxis ordered?: Yes Code Visit Surgery Charges CPT - 82046 ICD-10 - L89.219, L02.415, I96, M79.89, A49.02, A41.9, E11.9, N18.6 35705 S81.801A, L89.219, L02.415, I96, M79.89, A49.02, A41.9, E11.9, N18.6 09445 S81.801A, L89.219, L02.415, I96, M79.89, A49.02, A41.9, E11.9, N18.6 09793 S81.801A, L89.219, L02.415, I96, M79.89, A49.02, A41.9, E11.9, N18.6 97954 S81.801A, L89.219, L02.415, I96, M79.89, A49.02, A41.9, E11.9, N18.6 91540 L89.229, L02.416, I96, M79.89, A49.02, A41.9, E11.9, N18.6 93102 S81.802A, L89.229, L02.416, I96, M79.89, A49.02, A41.9, E11.9, N18.6 73404 S81.802A, L89.229, L02.416, I96, M79.89, A49.02, A41.9, E11.9, N18.6 64080 S81.802A, L89.229, L02.416, I96, M79.89, A49.02, A41.9, E11.9, N18.6
--- NOTE | 2018-08-19 11:40 | EXP.PCM_ITS ---
Preliminary Cause of Septic shock secondary to cellulitis Date of Admission: 08/17/18 Date of : 08/19/18 - Principle Diagnosis Septic shock secondary to bilateral hip decubitus ulcers with cellulitis Problem List: Active and Suspected Problems (Last Reviewed 09/09/17 @ 15:25 by Padmini Mitchell) Septic shock (Acute) Hospital Course Patient is a 63-year-old lady admitted with recent hospitalization for cellulitis associated with decubitus ulcers involving both hips [facility] brought to the emergency department as a result of progressive generalized malaise. Patient was first admitted to progressive care unit however in view of increasing lethargy and persistent hypotension patient was transferred to the intensive care unit as a suspected case of septic shock. Patient was managed per protocol with aggressive IV fluid resuscitation, broad- spectrum antibiotic therapy and subsequently intubated in view of acute hypoxic respiratory failure and metabolic encephalopathy. Despite optimal treatment patient condition continued to deteriorate discussions were held with patient regarding her prognosis family made a decision not to continue with care CODE STATUS changed from DNR CCA to DNR CC patient was terminally weaned off the vent and at 1020 on 08/19/2018 Code Visit Inpatient E&M: 45147 Disch Hosp
[2018-08-20 10:28] LABS: Pathologist Review Reviewed
== END 2018-08-19 10:20 | DRG 710 ==
LOC: ED 19:02 → PCU 20:36 → ICU 08-18 09:03
PROVIDERS: Internal Medicine Critical Care Medicine; Surgery; Admitting Provider Family Medicine; Emergency Provider Emergency Medicine; Family Provider Family Medicine; PCP Family Medicine; Visit Provider Internal Medicine
PROC: 0JBM0ZZ Excision of Left Upper Leg Subcutaneous Tissue and Fascia, Open Approach (ICD-10-PCS; principal; 2018-08-18 14:30)
DX: A41.9 Sepsis, unspecified organism (principal); L03.116 Cellulitis of left lower limb; R65.21 Severe sepsis with septic shock; I48.2 Chronic atrial fibrillation; I25.10 Atherosclerotic heart disease of native coronary artery without angina pectoris; L30.4 Erythema intertrigo; J44.9 Chronic obstructive pulmonary disease, unspecified; E03.9 Hypothyroidism, unspecified; Z66 Do not resuscitate; L89.222 Pressure ulcer of left hip, stage 2; L89.212 Pressure ulcer of right hip, stage 2; L03.115 Cellulitis of right lower limb; J96.01 Acute respiratory failure with hypoxia; G93.41 Metabolic encephalopathy; G25.81 Restless legs syndrome; I27.20 Pulmonary hypertension, unspecified; E66.01 Morbid (severe) obesity due to excess calories; Z68.43 Body mass index [BMI] 50.0-59.9, adult; E11.22 Type 2 diabetes mellitus with diabetic chronic kidney disease; I12.0 Hypertensive chronic kidney disease with stage 5 chronic kidney disease or end stage renal disease; N18.6 End stage renal disease; Z99.2 Dependence on renal dialysis; G47.33 Obstructive sleep apnea (adult) (pediatric); Z87.891 Personal history of nicotine dependence; Z79.4 Long term (current) use of insulin; Z79.82 Long term (current) use of aspirin; Z95.0 Presence of cardiac pacemaker; B95.62 Methicillin resistant Staphylococcus aureus infection as the cause of diseases classified elsewhere
CPT/HCPCS: 31720; 36415; 36620; 71045; 71275; 74018; 80048; 80202; 82803; 82962; 83605; 83735; 84484; 85025; 85379; 85610; 85652; 85730; 86140; 87040; 87070; 87075; 87077; 87102; 87186; 87205; 87206; 87640; 88305; 93005; 94002; 94003; 94640; 99251; 99285; J7030; J7040; J7050; P9047; Q9967; A4216; C1751; G0463; J3490